=== PATIENT | male | born 1945 | race African-American/Black ===

== ENCOUNTER 2017-01-30 21:01 | Observation (INO) | payer MEDICARE ==
[2017-01-30] MEDS ORDERED: Magnesium Sulfate 2 GM/100 ML BAG ONE (21:53)
[2017-01-30 23:34] LABS: Troponin I 0.049 ng/mL (< 0.028)
[2017-01-31] MEDS ORDERED: Acetaminophen 325 MG TAB PO PRN ×2 (00:54→02:39)
[2017-01-31 01:24] VITALS: BMI 19.3
[2017-01-31 02:10] LABS: Troponin I 0.056 ng/mL (< 0.028)
[2017-01-31] MEDS ORDERED: Calcium Carbonate 500 MG ChewTAB PO PRN (02:39)
[2017-01-31] MEDS ORDERED: Ondansetron ODT 4 MG TAB PO PRN (02:39)
[2017-01-31] MEDS ORDERED: Nitroglycerin 0.4 MG TAB (25 Tab Bottle) PO PRN (02:39)
[2017-01-31] MEDS ORDERED: Ondansetron HCl/PF 4 MG/2 ML Vial IVP PRN (02:39)
[2017-01-31] MEDS ORDERED: hydrALAZINE 20 MG/ML VIAL SLOW IVP PRN (02:42)
--- NOTE | 2017-01-31 03:37 | HP ---
The patient is a transfer from [facility]. CODE STATUS: FULL CODE. SURROGATE DECISION-MAKER: The patient makes his own decisions, has not appointed any decision maker . CHIEF COMPLAINT: Chest discomfort. HISTORY OF PRESENT ILLNESS: The patient is a 71-year-old male who presented to the emergency room w ith above complaints. He was last hospitalized at this facility in August of this year for chest pain . He was evaluated by Cardiology, Dr. Baird. His medications were optimized. He was then [facility] in a stable condition. Please note that the patient currently lives alone. He also has a history of chronic systolic heart failure, status post AICD. He currently takes no medications. The patient presented to [facility] today because of chest discomfort that has been goi ng on for the last week or so. It is substernal, sharp in nature with some nausea and diaphoresis. He also had intermittent palpitations. He denies any aggravating or relieving factor. He also com plains of minimal shortness of breath especially on moderate exertion. He denies recent immobilizat ion, travel. No fever, chills, heartburn, dyspepsia reported. In the Emergency Room in [place], his initial vital signs showed temperature 97.9, respirations 15, pulse of 68, blood pressure 172/91 with O2 saturation of 94% on room air. His initial EKG showed p aced rhythm. His initial troponins were in the indeterminate range. He received aspirin with nitro glycerin in the emergency room. His potassium was 3.4 for which he received 10 mEq of oral potassiu m. PAST MEDICAL HISTORY: 1. Chronic systolic heart failure, ejection fraction 30% to 35% range, secondary to ischemic cardio myopathy. 2. Sick sinus syndrome. 3. Coronary artery disease, status post coronary artery bypass grafting. 4. Hypertension. 5. Hyperlipidemia. 6. History of pulmonary embolism in the past. 7. Medication noncompliance. 8. Ongoing tobacco abuse. 9. Homelessness. PAST SURGICAL HISTORY: 1. AICD placement. 2. Coronary artery bypass grafting. ALLERGIES: No known drug allergy. CURRENT HOME MEDICATIONS: The patient currently takes no medications. SOCIAL HISTORY: He smokes on and off. He denies significant use of alcohol. No drug use. FAMILY HISTORY: Negative for premature coronary artery disease. REVIEW OF SYSTEMS: The following complete review of systems was negative, unless otherwise mentione d in the HPI or below: Constitutional: Weight loss or gain, ability to conduct usual activities. Skin: Rash, itching. Eyes: Double vision, pain. ENT/Mouth: Nose bleeding, neck stiffness, pain, tenderness. Cardiovascular: Palpitations, dyspnea on exertion, orthopnea. Respiratory: Shortness of breath, wheezing, cough, hemoptysis, fever or night sweats. Gastrointestinal: Poor appetite, abdominal pain, heartburn, nausea, vomiting, constipation, or diar jennifer. Genitourinary: Urgency, frequency, dysuria, nocturia. Musculoskeletal: Pain, swelling. Neurologic/Psychiatric: Anxiety, depression. Allergy/Immunologic: Skin rash, bleeding tendency. PHYSICAL EXAMINATION: VITAL SIGNS: As discussed above. GENERAL: A 71-year-old male, in no apparent distress. Chest discomfort has more or less resolved. HEENT: Head is atraumatic, normocephalic. Sclerae are anicteric. Moist mucous membranes. No oral lesion. NECK: Supple, no JVD appreciated. No carotid bruit. LUNGS: Clear to auscultation bilaterally. No wheezing or rales. HEART: S1, S2 present. Regular rate and rhythm, 2/6 systolic murmur over the mitral area AICD note d. No heaves or pulsation. No S3. ABDOMEN: Soft, nontender, bowel sounds present. EXTREMITIES: No edema or calf tenderness. NEUROLOGIC: Grossly nonfocal, moves all four extremities. PSYCHIATRY: Alert, awake, oriented x3. SKIN: Warm and dry. LYMPH NODES: No palpable lymph nodes in the neck. PERIPHERAL VASCULAR: Radial pulses palpable bilaterally. MUSCULOSKELETAL: No joint swelling or tenderness. LABORATORY AND X-RAY FINDINGS: Troponins chronically elevated. Maximum troponin 0.056. BNP 354, p otassium 3.4. Sodium 139. CBC showed WBC 5.9 with hemoglobin 15.4. Plasma alcohol was 179. Chest x-ray by my review as discussed above. EKG by my review showed paced rhythm. IMPRESSION AND PLAN: 1. Chest discomfort, rule out acute coronary syndrome. The patient has a history of ischemic cardi omyopathy. His troponins are chronically elevated in the indeterminate range. The patient is nonco mpliant with any of his medications. We will consult rehabilitation case coordinator for assistance. We will resume h ome medications based on last discharge summary. 2. Chronic systolic heart failure secondary to ischemic cardiomyopathy, status post AICD. We will resume ALMA inhibitor and beta olena from last discharge summary. Please note that patient does no t take any home medications. 3. Ongoing tobacco abuse. The patient was counseled. 4. Chronic alcohol use with alcohol intoxication at this time. The patient was counseled. 5. Hypertension. 6. Dyslipidemia. 7. No reversible ischemia on the Cardiolite stress test last year. 8. Medication noncompliance. 9. Hypokalemia. We will replace. 10. Macrocytosis, probably secondary to chronic alcohol use. Plan of care was discussed with the patient. He stated understanding. DISPOSITION: Probably in 24 hours if stable.
[2017-01-31] MEDS ORDERED: Nitroglycerin 2% Ointment 1 INCH/1 GM Packet TOP SCH (06:00)
[2017-01-31] MEDS ORDERED: Carvedilol 3.125 MG TAB PO SCH (08:00)
[2017-01-31] MEDS ORDERED: Spironolactone 25 MG TAB PO SCH (08:00)
[2017-01-31] MEDS ORDERED: Famotidine 20 MG TAB PO SCH ×2 (09:00)
[2017-01-31] MEDS ORDERED: Clopidogrel Bisulfate 75 MG TAB PO SCH (09:00)
[2017-01-31] MEDS ORDERED: Aspirin 325 MG TAB PO SCH (09:00)
[2017-01-31] MEDS ORDERED: Docusate 100 MG CAP PO SCH (09:00)
[2017-01-31] MEDS ORDERED: Furosemide 20 MG TAB PO SCH (09:00)
[2017-01-31] MEDS ORDERED: Lisinopril 2.5 MG TAB PO SCH (09:00)
[2017-01-31] MEDS ORDERED: Aspirin 81 mg Enteric Coated Tablet PO SCH (09:00)
[2017-01-31] MEDS ORDERED: Digoxin 0.25 MG TAB PO SCH (09:00)
[2017-01-31] MEDS ORDERED: Lorazepam 1 MG TAB PO PRN (10:36)
[2017-01-31 12:27] VITALS: BP 134/67; TEMP 98.3
--- NOTE | 2017-01-31 19:05 | DIS ---
DATE OF ADMISSION: 01/30/2017 DATE OF DISCHARGE: 01/31/2017 CONDITION AT THE TIME OF DISCHARGE: Stable and improved. DISCHARGE DIAGNOSES: 1. Chest pain, atypical, likely angina due to medication noncompliance. 2. Acute alcoholic intoxication. 3. Hypertension. 4. History of chronic systolic congestive heart failure. 5. Coronary artery disease. 6. Tobacco dependence. DISCHARGE DISPOSITION: Home. The patient's family members were consulted and he is going home with one of his cousin who is a sonar subsystem equipment operator. DISCHARGE MEDICATIONS: Medication prescriptions were provided and help was arranged with the help o f case management. Discharge medications as follows: Aspirin 81 mg daily, Coreg 3.125 mg p.o. b.i. d., Plavix 75 mg daily, lisinopril 2.5 mg daily, multivitamin daily, Aldactone 12.5 mg p.o. daily, I mdur 30 mg daily, Pepcid 20 mg p.o. b.i.d., digoxin 0.25 mg daily. CONSULTATIONS: None. PROCEDURES: None. HISTORY OF PRESENTING ILLNESS: Mr. Kiser is a 71-year-old male with known history of chronic systoli c congestive heart failure, status post AICD placement, and coronary artery disease status post CABG as well as hypertension and dyslipidemia, and history of PE in the past who presented to the emerge ncy room with complaints of chest pain. He was evaluated in our facility in August as well. He is es sentially homeless and continues to drink and is not able to take any of his medications either tom use of noncompliance or homelessness or alcohol abuse. Anyways, he presented with a blood pressure of 172/91 with oxygen saturation of 94% on room air. His initial troponins were in the indeterminat e range, which is rather chronic for him. He was given aspirin and nitroglycerin in the ER and was admitted for further evaluation. EKG showed paced rhythm. HOSPITAL COURSE: His chest pain was rather atypical and it did not reoccur. Serial cardiac enzymes were trended and they remained in the indeterminate range. Lipid panel was checked and it was unre markable. His serum alcohol level was 179. His chest pain is most likely angina or related to hype rtension, which was uncontrolled. At this time, he was restarted on all of his medication including aspirin, statin, beta olena, ALMA inhibitor, diuretics, digoxin and Aldactone as well as Plavix. All the prescriptions were provided to him and case management was consulted with medication financi al help. This was provided to the patient. Fortunately, we were able to get hold of family member who is a sonar subsystem equipment operator and the patient is going to stay with the family for now. He was seen and examined on the day of discharge and is hemodynamically stable. PHYSICAL EXAMINATION: Include, VITAL SIGNS: Temperature 98.3, pulse of 60, respirations 20, saturating 97% on room air, blood pres sure 134/67. GENERAL: He is somewhat somnolent, likely due to acute alcoholic intoxication, but in no acute dist ress. Awake, alert, oriented x3. CHEST: Clear to auscultation without any wheezing, rales or rhonchi. Rate and rhythm is regular wi thout any murmur, rubs or gallops. ABDOMEN: Soft, nontender, nondistended. LABORATORY EXAMINATION: Troponin 0.049 and 0.056. At this time, the patient is hemodynamically stable and restarted on all of his home medications. A lcohol and tobacco abuse counseling was provided in detail, but the patient does not seem to underst and the gravity of the situation. He remains high risk for complications with his continued alcohol ism.
[2017-01-31] MEDS ORDERED: Atorvastatin Calcium 40 MG TAB PO SCH (21:00)
== END 2017-01-31 16:44 | disposition home or self-care (01) ==
LOC: ERS 21:01 → 2SW 22:24
PROVIDERS: ADMIT Internal Medicine; ATTEND Internal Medicine
DX: R07.89 Other chest pain (principal); F10.129 Alcohol abuse with intoxication, unspecified; I25.10 Atherosclerotic heart disease of native coronary artery without angina pectoris; F17.200 Nicotine dependence, unspecified, uncomplicated; E78.5 Hyperlipidemia, unspecified; I25.5 Ischemic cardiomyopathy; I11.0 Hypertensive heart disease with heart failure; I50.22 Chronic systolic (congestive) heart failure; I49.5 Sick sinus syndrome; Z59.0 Homelessness; D75.89 Other specified diseases of blood and blood-forming organs; E87.6 Hypokalemia; Z91.14 Patient's other noncompliance with medication regimen; Z95.810 Presence of automatic (implantable) cardiac defibrillator; Z95.1 Presence of aortocoronary bypass graft; Z86.711 Personal history of pulmonary embolism
CPT/HCPCS: 80061; 84484 ×2; 93798; 94760; 96365; 99285; G0378; 36415; J3475

== ENCOUNTER 2017-04-15 19:59 | Inpatient (IN) | payer MEDICARE ==
[2017-04-15 22:00] LABS: Troponin I 0.144 ng/mL (< 0.028)
[2017-04-16 00:32] VITALS: BMI 25.4
[2017-04-16 01:20] LABS: Troponin I 0.149 ng/mL (< 0.028)
[2017-04-16] MEDS ORDERED: Enoxaparin Sodium 40 MG/0.4 ML SYRINGE SC SCH (03:15)
[2017-04-16] MEDS ORDERED: Acetaminophen 325 MG TAB PO PRN (03:15)
[2017-04-16] MEDS ORDERED: HYDROcodone/Acetaminophen 5/325 mg Tablet PO PRN (03:15)
[2017-04-16] MEDS ORDERED: Ondansetron ODT 4 MG TAB PO PRN (03:15)
[2017-04-16 03:57] LABS: CKMB 1.5 ng/mL (0-6.6); Troponin I 0.152 ng/mL (< 0.028)
[2017-04-16] MEDS: Furosemide 40 MG/4 ML VIAL SLOW IVP SCH ×2 (04:01→09:33)
--- NOTE | 2017-04-16 04:25 | HP ---
DATE OF ADMISSION: 04/16/2017 TIME OF SERVICE: 0115 hours. PRIMARY CARE PHYSICIAN: Brad Galeana M.D. PRIMARY MANUFACTURING DIRECTOR: Zack Sales M.D. CHIEF COMPLAINT: Shortness of breath and chest pressure. HISTORY OF PRESENT ILLNESS: Mr. Kiser is a 71-year-old male with history of chronic systolic CHF, last EF of 30%-35%, ischemic cardiomyopathy, sick sinus syndrome, coronary artery disea se, hypertension, hyperlipidemia, prior pulmonary embolus and noncompliance with medical regimen, who presents to the emergency department with one-day of acute onset of chest pressure and several days of increasing shortness of breath. The patient was last here 01/30/2017 to 01/31/2017 and presented with an episode the ER and transferr ed here for chest pain and ruled out. He presented with the episode to ER today with the same similar symptoms. When he was last discharge d, he was restarted all of his medications that he has not been taking and again has not been taking any of his medications. Emergency Department workup was largely unremarkable except for a BNP of 180 0 which was the highest that I have seen recently. Rest of his labs remained normal and he was satti ng 95% on room air. We were subsequently called for admission for his tachycardia, elevated BNP and shortness of breath. Troponins are borderline. The patient was transferred to the floor. I saw him 04/06/2017. He was breathing comfortably and sl eeping. Denied any further chest pressure. No nausea, vomiting, diaphoresis. There are no fevers o r chills. No cough or sputum production. No GI bleeding. He readily admits, he does not take any medications. PAST MEDICAL HISTORY: 1. Chronic systolic congestive heart failure, ejection fraction of 30%-35%. 2. Ischemic cardiomyopathy. 3. Sick sinus syndrome, status post pacemaker/AICD placement. 4. Coronary artery disease. 5. Hypertension. 6. Hyperlipidemia. 7. History of pulmonary embolus. 8. Ongoing tobacco abuse. 9. Medical noncompliance. PAST SURGICAL HISTORY: 1. Coronary artery bypass grafting. 2. AICD implantation. HOME MEDICATIONS: Please note the patient is not taking any of these; 1. Aspirin 81 mg daily. 2. Coreg 3.125 mg p.o. b.i.d. 3. Plavix 75 mg daily. 4. Lisinopril 2.5 mg daily 5. Multivitamin daily. 6. Aldactone 12.5 mg p.o. daily. 7. Imdur 30 mg p.o. daily. 8. Pepcid 20 mg p.o. b.i.d. 9. Digoxin 0.25 mg p.o. daily. ALLERGIES: NKDA. FAMILY HISTORY: The patient does not know of any history of clotting or bleeding disorder. No immun e dysfunction. No premature coronary disease. SOCIAL HISTORY: He drinks regularly. He states that he currently drinks about 5 drinks a day. Does smoke about half a pack of cigarettes per day. No IV drug use. He is grossly noncompliant with his medical treatments. REVIEW OF SYSTEMS: A 10-point review of systems was performed. The patient denied any other finding s except stated above in HPI. PHYSICAL EXAMINATION: VITAL SIGNS: Temperature on arrival to floor 96.2, pulse 94, blood pressure 145/88, respiratory rate 18, sat 95% on room air on arrival to the emergency department, blood pressure 149/99 to our emergen cy department and satting 100% on 2 liters. GENERAL: He is awake. He is alert. He is oriented x3. He is a well-developed, well-nourished Afri can [place] male who is in no distress. He actually looks like he does not care at all that he is h ere and does not do anything he is supposed to be doing. HEENT: Normocephalic and atraumatic. Pupils equal, round, and reactive to light bilaterally, there is no icterus. Mucous membranes are moist. There are no visible lesions or thrush. NECK: Supple. There is no lymphadenopathy, JVD or thyromegaly. LUNGS: Have coarse bibasilar crackles. He has a slightly prolonged expiratory phase, but no wheezes . CARDIOVASCULAR: Normal S1, S2; he is barely tachycardic. There is a faint systolic ejection murmur 2-3/6 best heard at the right sternal border with radiation to the apex of the carotids and there is a faint holosystolic murmur best over the apex. ABDOMEN: Soft, nontender, nondistended. He has no hepatosplenomegaly. He has got good bowel sounds . EXTREMITIES: No cyanosis or clubbing; does have edema from the ankles down. 1+ pitting. SKIN: Otherwise, warm was well-perfused. No rash or lesions. NEUROLOGIC: Cranial nerves II through XII grossly intact. Strength 5/5. Speech pattern is normal. There are no focal deficits. MUSCULOSKELETAL: Normal to inspection. There is no joint inflammations. No deformities and no palp able effusions. LABORATORY DATA: Sodium 138, potassium 4.2, chloride 104, bicarbonate 23, BUN 12, creatinine 0.93. Liver function grossly within normal limits. CBC showed a white count of 6.4, hemoglobin 13.6, hematocrit of 42.7, platelet count was 253,000. Tr oponin I was 0.159, followed by 0.144. BNP was 1854. Chest x-ray showed cardiomegaly and findings consistent with CHF. ASSESSMENT AND PLAN: 1. Acute on chronic systolic congestive heart failure: The patient was placed on IV Lasix, nitro pa dhaval, and diuresed. We will get a 2D echocardiogram as last one was more than 6 months ago. We will get serial cardiac biomarkers to rule out any underlying coronary artery disease as a cause. 2. Ischemic cardiomyopathy, last ejection fraction 30%-35%. Follow up with echocardiogram. 3. Medical noncompliance. Patient has not taken his medications; really so like he has no plans to take them later. We will defer to the daytime team. 4. Coronary artery disease, serial cardiac biomarkers. We will resume his Imdur, Coreg, Plavix and daily baby aspirin. We will continue his low dose lisinopril for cardiac remodeling. 5. Hypertension. Aldactone, Imdur, lisinopril, Coreg. 6. History of sick sinus syndrome on digoxin.
[2017-04-16] MEDS ORDERED: Furosemide 40 MG/4 ML VIAL SLOW IVP SCH (06:00)
[2017-04-16] MEDS ORDERED: Digoxin 0.25 MG TAB PO SCH ×2 (09:00→13:48)
[2017-04-16 09:20] LABS: Hemoglobin 12.7 g/dL (14.0-18.0); Mean Corpuscular HGB CONC 32.8 g/dL (32.0-36.0); Mean Corpuscular Hemoglobin 32.3 pg (27.0-31.0); Mean Corpuscular Volume 98.4 fl (80.0-94.0); Mean Platelet Volume 8.3 fL (7.4-10.4); Platelet Count 219 thou/uL (130-400); RBC Distribution Width 13.3 % (11.5-14.5); Red Blood Cell (RBC) Count 3.93 mill/uL (4.70-6.10); White Blood Cell (WBC) Count 4.9 thou/uL (4.8-10.8)
[2017-04-16] MEDS: Famotidine 20 MG TAB PO SCH ×2 (09:32→20:55)
[2017-04-16] MEDS: Clopidogrel Bisulfate 75 MG TAB PO SCH (09:32)
[2017-04-16] MEDS: Spironolactone 25 MG TAB PO SCH (09:32)
[2017-04-16] MEDS: Lisinopril 2.5 MG TAB PO SCH (09:32)
[2017-04-16] MEDS: Carvedilol 3.125 MG TAB PO SCH ×2 (09:33→17:47)
[2017-04-16 09:37] LABS: Anion Gap 14 mmol/L (10-20); BUN (Urea Nitrogen) 11 mg/dL (8.4-25.7); Calc. Creatinine Clearance 79 mL/min (70-130); Calcium 8.6 mg/dL (7.8-10.44); Carbon Dioxide 23 mmol/L (23-31); Chloride 102 mmol/L (98-107); Estimated GFR-MDRD Greater than 90; Glucose 76 mg/dL (80-115); Potassium 3.4 mmol/L (3.5-5.1); Sodium 136 mmol/L (136-145)
[2017-04-16 09:44] LABS: Troponin I 0.117 ng/mL (< 0.028)
[2017-04-16] MEDS ORDERED: Lorazepam 2 MG/ML VIAL SLOW IVP PRN (11:25)
[2017-04-16 12:34] LABS: CKMB 1.4 ng/mL (0-6.6); Troponin I 0.125 ng/mL (< 0.028)
--- NOTE | 2017-04-16 12:57 | PDOC.EVN ---
Event Note - Event Note Event Note: 71M with h/o alcohol abuse admitted for heart failure. has been commenced on diuretics and tolerating well. Physical examination significant for bibasilar crackles. Has elevated troponin but likely 2/2 demand ischemia. Cardiology, heart failure services consulted.
--- NOTE | 2017-04-16 13:47 | CON-2 ---
DATE OF CONSULTATION: 04/16/2017 REASON FOR CONSULTATION: Chest pain and shortness of breath. ATTENDING: Law Simons M.D. RESIDENT: Elissa Hirsch M.D., PGY-2. HISTORY OF PRESENT ILLNESS: Patient is a 71-year-old -[place] male with past history of heart failure with reduced ejection fraction (last EF of 30 %-35%), ischemic cardiomyopathy, AICD placement, coronary artery disease, status post CABG x3, hypertension, hyperlipidemia, who presents with chest pain and worsening dyspnea. Regarding the patient's chest pain, it is difficult for him to characterize the nature of it. He does state that it is substernal. He is unable to characterize it and give any further information regarding it. Regarding his dyspnea, he states that it has been worsening over the past 2 weeks. He does also report increased lower extremity edema, orthopnea, and paroxysmal nocturnal dyspnea. The patient's machine inker is Dr. Sales. The patient does report medication noncompliance due to an unstable living situation. PAST MEDICAL HISTORY: 1. Heart failure with reduced ejection fraction. 2. Cardiomyopathy. 3. Sick sinus syndrome. 4. Coronary artery disease. 5. Hypertension. 6. Hyperlipidemia. MEDICATIONS: 1. Aspirin 81 mg daily. 2. Coreg 3.125 mg p.o. b.i.d. 3. Plavix 75 mg daily. 4. Lisinopril 2.5 mg daily. 5. Spironolactone 12.5 mg daily. 6. Imdur 30 mg daily. 7. Digoxin 0.25 mg daily. PAST SURGICAL HISTORY: 1. CABG x3. 2. AICD placement. ALLERGIES: No known drug allergies. SOCIAL HISTORY: The patient denies smoking. Per review of patient's chart, patient does have a significant alcohol history. REVIEW OF SYSTEMS: Ten-point review of systems negative aside from what is listed in history of present illness. PHYSICAL EXAMINATION: VITAL SIGNS: Blood pressure 134/79, temperature 97.9 degrees, pulse 72, respirations 17, pulse ox 95% on room air. GENERAL: The patient is alert and oriented, in no apparent distress. HEENT: Extraocular muscles are intact. NECK: Supple, no thyromegaly. CARDIOVASCULAR: Regular rate and rhythm, no murmurs, rubs, or gallops. RESPIRATORY: Lungs are clear to auscultation bilaterally. No rales, wheezes, or rhonchi. ABDOMEN: Soft, nontender to palpation. No distention. No organomegaly. EXTREMITIES: Normal bulk and tone. A little peripheral edema noted. NEUROLOGIC: Cranial nerves II-XII intact grossly. LABORATORY DATA: 1. CBC: Hemoglobin 12.9, hematocrit 38.7, white blood cell count 4.9, platelet count 219. 2. BMP: Sodium 136, potassium 3.4, chloride 102, carbon dioxide 23, BUN 11, creatinine 0.9, glucose 76. 3. Troponin 0.144, 0.149, 0.152, 0.177. 4. BNP 1851.2. IMAGING: Chest x-ray shows cardiomegaly with prominence of the pulmonary vasculature and pulmonary interstitium suggestive of congestive heart failure. EKG shows ischemic changes consistent with prior EKGs. ASSESSMENT AND PLAN: The patient is a 71-year-old male with history of congestive heart failure and medication noncompliance, who presents with shortness of breath and chest pain. 1. Acute exacerbation of heart failure with reduced ejection fraction. Patient notes some improvement in shortness of breath with IV diuresis. Recommend medical management with diuresis, fluid restriction, and low-salt diet. Patient's home medications have all been restarted. Patient is currently stable, as he is not requiring oxygen at this time. Continue to monitor. 2. Chest pain. EKG and labs not consistent with active ischemia. We will treat medically with restarting patient's home medications. Given the patient' s unstable financial situation, compliance on an outpatient basis may continue to be an issue. Recommend that case management be involved for medication assistance. JEFFERY
[2017-04-16] MEDS ORDERED: Digoxin 0.125 MG TAB PO SCH (14:00)
--- NOTE | 2017-04-16 15:26 | CON ---
DATE OF CONSULTATION: 04/16/2017 REASON FOR CONSULTATION: 1. Acute on chronic systolic heart failure. 2. Ischemic cardiomyopathy. Please see Elissa Hirsch's full consultation for details. HISTORY OF PRESENT ILLNESS: Briefly, Mr. Kiser is a pleasant 71-year-old gentleman who recently prese nted with shortness of breath. He has a history of ischemic cardiomyopathy. He has been seen and ev aluated by Dr. Zack Sales in the past. He had an ICD placed. He has not taken any of his medicin es over the last several months. History is somewhat vague. He has a history of significant noncomp liance in the past. Per the notes, he also is homeless. PHYSICAL EXAMINATION: VITAL SIGNS: Blood pressure 124/84, pulse 76, temperature 98.2. LUNGS: Clear to auscultation. CARDIAC: Regular rate and rhythm. ABDOMEN: Soft, nontender, and nondistended. EXTREMITIES: No edema. IMPRESSION: 1. Acute on chronic systolic heart failure. 2. Ischemic cardiomyopathy. RECOMMENDATIONS: Mr. Kiser's situation is certainly complex. Social history seems to be at the foref ront. He has not taken his medicines likely due to financial constraints. Making this worse is his homeless status. At this point, I would recommend continued medical therapy. He started on aspirin, atorvastatin, and carvedilol in addition to digoxin. We will decrease digoxin 0.125 q.a.m. We woul d not recommend anymore aggressive approach given his situation. His EKG does suggest LVH versus isc hemia, when compared to previous EKG in 2017 appears unchanged. Plan and discharge from a CV standpo int tomorrow.
[2017-04-16 15:37] LABS: Troponin I 0.104 ng/mL (< 0.028)
[2017-04-16] MEDS: Furosemide 20 MG/2 ML VIAL SLOW IVP SCH (20:55)
[2017-04-16] MEDS ORDERED: Atorvastatin Calcium 40 MG TAB PO SCH (21:00)
[2017-04-17 05:10] LABS: #Basophils 0.1 thou/uL (0.0-0.2); #Eosinphils 0.4 thou/uL (0.0-0.7); #Lymphocytes 1.9 thou/uL (1.20-3.40); #Monocytes 0.6 thou/uL (0.11-0.59); #Neutrophils 1.5 thou/uL (1.40-6.50); %Basophils 1.2 % (0.0-1.0); %Eosinophils 8.6 % (0.0-10.0); %Lymphocytes 42.8 % (21.0-51.0); %Monocytes 14.1 % (0.0-10.0); %Neutrophils 33.3 % (42.0-75.0); Hemoglobin 12.6 g/dL (14.0-18.0); Mean Corpuscular HGB CONC 33.4 g/dL (32.0-36.0); Mean Corpuscular Hemoglobin 32.8 pg (27.0-31.0); Mean Corpuscular Volume 98.2 fl (80.0-94.0); Mean Platelet Volume 7.7 fL (7.4-10.4); Platelet Count 227 thou/uL (130-400); RBC Distribution Width 13.2 % (11.5-14.5); Red Blood Cell (RBC) Count 3.86 mill/uL (4.70-6.10); White Blood Cell (WBC) Count 4.4 thou/uL (4.8-10.8)
[2017-04-17 05:23] LABS: Anion Gap 11 mmol/L (10-20); BUN (Urea Nitrogen) 14 mg/dL (8.4-25.7); Calc. Creatinine Clearance 60 mL/min (70-130); Calcium 8.9 mg/dL (7.8-10.44); Carbon Dioxide 29 mmol/L (23-31); Chloride 101 mmol/L (98-107); Estimated GFR-MDRD 74; Glucose 95 mg/dL (80-115); Magnesium 1.7 mg/dL (1.6-2.6); Potassium 3.6 mmol/L (3.5-5.1); Sodium 137 mmol/L (136-145)
[2017-04-17] MEDS ORDERED: Enoxaparin Sodium 40 MG/0.4 ML SYRINGE SC SCH (09:00)
[2017-04-17] MEDS ORDERED: Digoxin 0.125 MG TAB PO SCH (09:00)
[2017-04-17] MEDS: Lisinopril 2.5 MG TAB PO SCH (09:10)
[2017-04-17] MEDS: Spironolactone 25 MG TAB PO SCH (09:13)
[2017-04-17] MEDS: Famotidine 20 MG TAB PO SCH (09:14)
[2017-04-17] MEDS: Carvedilol 3.125 MG TAB PO SCH (09:14)
[2017-04-17] MEDS: Clopidogrel Bisulfate 75 MG TAB PO SCH (09:14)
[2017-04-17] MEDS: Furosemide 20 MG/2 ML VIAL SLOW IVP SCH (09:17)
--- NOTE | 2017-04-17 11:04 | PRG ---
DATE OF SERVICE: 04/17/2017 SUBJECTIVE: Mr. Kiser has no current complaints. No chest pain or pressure or shortness of breath. No other associated ameliorating or exacerbating factors present. OBJECTIVE: VITAL SIGNS: Blood pressure 130/77, pulse 61 and temperature is 98.3. LUNGS: Clear to auscultation. HEART: Regular rate and rhythm. ABDOMEN: Soft, nontender and nondistended. EXTREMITIES: No edema. IMPRESSION: 1. Acute on chronic systolic heart failure. 2. Status post implantable cardioverter defibrillator. RECOMMENDATIONS: From a CV standpoint, Mr. Kiser appears stable for discharge. We will continue ator vastatin, carvedilol, Plavix and digoxin. We will also continue isosorbide. Unfortunately, complian ce is an ongoing issue. I did state he should follow up with his primary crime investigator special agent, Dr. Derrek garza.
[2017-04-17 12:21] VITALS: BP 126/72; TEMP 98.1
--- NOTE | 2017-04-17 22:15 | DIS ---
DATE OF ADMISSION: 04/15/2017 DATE OF DISCHARGE: 04/17/2017 CONDITION AT TIME OF DISCHARGE: Stable and improved. DISCHARGE DIAGNOSES: Acute on chronic systolic congestive heart failure SECONDARY DIAGNOSES: Ischemic cardiomyopathy with ejection fraction of 30% to 35%, medication noncom pliance, coronary artery disease, hypertension, history of sick sinus syndrome, on digoxin. CONSULTATIONS: Cardiology. HISTORY OF PRESENT ILLNESS: A 71-year-old male with history of systolic CHF, [facility] several days of increasing shortness of breath with associated chest pressure. He p resented here 01/30/2017 through 01/31/2017, presented with the same episode at the ER and was treate d for chest pain, rule out. Emergency room workup was unremarkable except for a BNP of 1800. Rest o f labs remain normal and he was saturating at 95% on room air. We were subsequently called for admis claudia for his tachycardia, elevated BNP and shortness of breath. Troponins were borderline. He was t ransferred to the floor and where he was found breathing comfortable and sleeping. He denied further chest pressure. There was no nausea, vomiting or diaphoresis. No fevers or chills. No cough or sp utum production. HOSPITAL COURSE: He received adequate diuresis and was continued on his home medications. He was ev entually transitioned to p.o. furosemide. He was reviewed by Cardiology and only change made was to reduce his digoxin dose to 0.125 mg p.o. q.a.m. The patient remained stable while on admission and w as discharged without incident. PROCEDURES: Chest x-ray: Cardiomegaly and findings suggestive of CHF. EKG no signs of acute ischem ia. PHYSICAL EXAMINATION ON DISCHARGE: The patient examination on day of discharge. VITAL SIGNS: Stable and he was not in any acute distress. GENERAL: The patient awake and alert, no acute distress. HEENT: Normocephalic and atraumatic. PERRLA, anicteric. Mucous membranes moist. NECK: Supple, no JVD. LUNGS: Vesicular breath sounds bilaterally. No wheezes or crackles. CARDIOVASCULAR: S1, S2, normally positive systolic ejection murmur right sternal border. ABDOMEN: Soft, nontender, nondistended. Bowel sounds positive. No hepatomegaly or splenomegaly. EXTREMITIES: Moving all extremities spontaneously. No lower extremity edema. SKIN: Warm and well perfused. No rashes or lesions. NEUROLOGIC: Awake, alert and well oriented. No focal deficits. PSYCHIATRIC: Normal mood and affect. LABORATORY DATA: Labs at discharge, CBC and CMP likely unremarkable. Troponin trended down before d ischarge. DISCHARGE DISPOSITION: Home. DISCHARGE MEDICATIONS: Aspirin 81 mg daily, atorvastatin 40 mg p.o. at bedtime, carvedilol 3.125 mg p.o. b.i.d., clopidogrel 75 mg p.o. q.a.m., digoxin 0.125 mg p.o. daily, famotidine 20 mg p.o. b.i.d. , furosemide 20 mg p.o. daily, isosorbide mononitrate 30 mg p.o. daily, lisinopril 2.5 mg p.o. daily, multivitamin with minerals 1 tablet p.o. daily, spironolactone 12.5 mg p.o. q.a.m. DIET: Heart healthy diet. ACTIVITY: Restrictions to resume as tolerated. PLAN OF CARE: The patient instructed to follow up with his primary care physician within 1 week of d ischarge. He was also informed to take his medications as prescribed. Total time of discharge including chart review 60 minutes.
--- NOTE | 2017-04-25 14:16 | EKG ---
Test Reason : Blood Pressure : / mmHG Vent. Rate : 091 BPM Atrial Rate : 091 BPM P-R Int : 156 ms QRS Dur : 106 ms QT Int : 414 ms P-R-T Axes : 071 020 184 degrees QTc Int : 509 ms Normal sinus rhythm Possible Left atrial enlargement Left ventricular hypertrophy Prolonged QT Abnormal ECG Confirmed by MAGNUS BURCIAGA, VICENTE ([id number]), communications editor MELITA BURK ([id number]) on 04/25/2017 2:15:59 PM Referred By: MAGNUS Confirmed By:VICENTE AGUDELO MD
== END 2017-04-17 15:30 | disposition home or self-care (01) | DRG 292 ==
LOC: ERS 19:59 → 2NO 23:50
PROVIDERS: ADMIT Internal Medicine Infectious Disease; ATTEND Internal Medicine Infectious Disease
DX: I11.0 Hypertensive heart disease with heart failure (principal); I24.8 Other forms of acute ischemic heart disease; I25.5 Ischemic cardiomyopathy; Z79.01 Long term (current) use of anticoagulants; Z95.1 Presence of aortocoronary bypass graft; I25.10 Atherosclerotic heart disease of native coronary artery without angina pectoris; E78.5 Hyperlipidemia, unspecified; Z86.711 Personal history of pulmonary embolism; Z95.810 Presence of automatic (implantable) cardiac defibrillator; F17.210 Nicotine dependence, cigarettes, uncomplicated; Z79.82 Long term (current) use of aspirin; I50.23 Acute on chronic systolic (congestive) heart failure; F10.10 Alcohol abuse, uncomplicated; Z59.0 Homelessness; Z91.120 Patient's intentional underdosing of medication regimen due to financial hardship
CPT/HCPCS: 36415; 80048; 82553; 83735; 84484; 85025; 85027; 93005; 93306; 93798; 94760; J1650; J1940

== ENCOUNTER 2017-06-07 11:55 | Inpatient (IN) | payer MEDICARE ==
[2017-06-07 12:38] LABS: #Basophils 0.1 thou/uL (0.0-0.2); #Eosinphils 0.1 thou/uL (0.0-0.7); #Lymphocytes 1.8 thou/uL (1.20-3.40); #Monocytes 0.6 thou/uL (0.11-0.59); #Neutrophils 2.3 thou/uL (1.40-6.50); %Basophils 1.4 % (0.0-1.0); %Eosinophils 1.6 % (0.0-10.0); %Lymphocytes 37.2 % (21.0-51.0); %Monocytes 11.7 % (0.0-10.0); %Neutrophils 48.1 % (42.0-75.0); Hemoglobin 13.5 g/dL (14.0-18.0); Mean Corpuscular HGB CONC 33.3 g/dL (32.0-36.0); Mean Corpuscular Hemoglobin 32.2 pg (27.0-31.0); Mean Corpuscular Volume 96.7 fl (80.0-94.0); Mean Platelet Volume 7.9 fL (7.4-10.4); Platelet Count 187 thou/uL (130-400); RBC Distribution Width 13.8 % (11.5-14.5); Red Blood Cell (RBC) Count 4.19 mill/uL (4.70-6.10); White Blood Cell (WBC) Count 4.7 thou/uL (4.8-10.8)
[2017-06-07 12:51] LABS: ALT (SGPT) 21 U/L (8-55); AST (SGOT) 27 U/L (5-34); Albumin 3.7 g/dL (3.4-4.8); Alkaline Phosphatase 94 U/L (40-150); Anion Gap 13 mmol/L (10-20); BUN (Urea Nitrogen) 17 mg/dL (8.4-25.7); Bilirubin, Total 1.5 mg/dL (0.2-1.2); CK (CPK) 72 U/L (30-200); Calc. Creatinine Clearance 0 mL/min (70-130); Calcium 9.1 mg/dL (7.8-10.44); Carbon Dioxide 22 mmol/L (23-31); Chloride 106 mmol/L (98-107); Estimated GFR-MDRD Greater than 90; Globulin 3.2 g/dL (2.4-3.5); Glucose 107 mg/dL (80-115); Potassium 4.3 mmol/L (3.5-5.1); Protein, Total 6.9 g/dL (5.8-8.1); Sodium 137 mmol/L (136-145)
[2017-06-07 12:56] LABS: CKMB 2.9 ng/mL (0-6.6); Troponin I 0.106 ng/mL (< 0.028)
--- NOTE | 2017-06-07 14:46 | RAD ---
AP CHEST: History: Dyspnea. Date: 06-07-17 Comparison: 04-15-17 FINDINGS: Sternotomy wires are seen. There is a dual-lead intracardiac defibrillator. Cardiomegaly is seen. Pul monary vascular congestion is seen. There is some mild blunting of the left costophrenic angle compatible with a tiny left sided pleural effusion. The right lung is well aerated. IMPRESSION: Cardiomegaly and pulmonary vascular congestion. POS: [facility]
[2017-06-07] MEDS ORDERED: Acetaminophen 325 MG TAB PO PRN (15:10)
[2017-06-07] MEDS ORDERED: Acetaminophen 650 MG Suppository PR PRN (15:10)
[2017-06-07] MEDS ORDERED: Bisacodyl 5 MG TAB PO PRN (15:10)
[2017-06-07] MEDS ORDERED: Calcium Carbonate 500 MG ChewTAB PO PRN (15:10)
--- NOTE | 2017-06-07 15:44 | HP ---
PRIMARY CARE PHYSICIAN: Brad Galeana M.D. CHIEF COMPLAINT: Shortness of breath. HISTORY OF PRESENT ILLNESS: Mr. Kiser is a pleasant 71-year-old gentleman who was seen at [facility] on 06/07/2017. He is a poor historian. Collateral history was obtained from medical record as well as from emergenc y room physician. He reports that approximately 2 weeks ago, he stopped taking his medications. He cites [email or web address] for this. He reports that over the last 2 weeks, he has had progressively worsening shortness o f breath. He reports orthopnea. He also reports paroxysmal nocturnal dyspnea. He also reports shor tness of breath with exertion. He also reportedly told the emergency room physician that he had ches t discomfort, but when I asked him about it, he said that he may have had tightness in the retrostern al region, but he is unable to describe it further and he no longer has chest discomfort. He denies any cough, fevers or chills. He reports bilateral leg swelling, progressively worsening over the last few days. REVIEW OF SYSTEMS: The following complete review of systems was negative, unless otherwise mentioned in the HPI or below: Constitutional: Weight loss or gain, ability to conduct usual activities. Skin: Rash, itching. Eyes: Double vision, pain. ENT/Mouth: Nose bleeding, neck stiffness, pain, tenderness. Cardiovascular: Palpitations, dyspnea on exertion, orthopnea. Respiratory: Shortness of breath, wheezing, cough, hemoptysis, fever or night sweats. Gastrointestinal: Poor appetite, abdominal pain, heartburn, nausea, vomiting, constipation, or diarr hea. Genitourinary: Urgency, frequency, dysuria, nocturia. Musculoskeletal: Pain, swelling. Neurologic/Psychiatric: Anxiety, depression. Allergy/Immunologic: Skin rash, bleeding tendency. PAST MEDICAL HISTORY: Significant for, 1. Chronic systolic congestive heart failure, ejection fraction of 30%-35%, last admission for heart failure exacerbation in 03/2017. 2. Ischemic cardiomyopathy. 3. Sick sinus syndrome, status post pacemaker/AICD placement. 4. Coronary artery disease. 5. Hypertension. 6. Dyslipidemia. 7. History of pulmonary embolism. 8. Tobacco use. 9. Medical noncompliance. PAST SURGICAL HISTORY: Significant for coronary artery bypass graft and AICD implantation. ALLERGIES: No known drug allergies. CURRENT MEDICATIONS: Patient is not taking any medications for the last 2 weeks. Prior to that, he was on aspirin 81 mg daily, Coreg 3.125 mg 2 times a day, Plavix 75 mg daily, lisinopril 2.5 mg daily , multivitamins 1 tablet daily, spironolactone 12.5 mg daily, Imdur 30 mg daily, Pepcid 20 mg 2 times a day, and digoxin 0.25 mg daily. FAMILY HISTORY: He denies any family history of coronary artery disease. SOCIAL HISTORY: He drinks about 3 alcoholic drinks every other day. He chews tobacco. He denies re creational drug use. CODE STATUS: I discussed his code status. He is FULL CODE. PHYSICAL EXAMINATION: GENERAL: On examination, Mr. Kiser is awake and alert, not in acute distress. VITAL SIGNS: Blood pressure is 130/90, pulse is 87, he is breathing at rate of 20 and saturating 97% on room air. He is afebrile. EYES: He has scleral icterus. No conjunctival pallor. ENT: Moist mucosal membranes, no oropharyngeal erythema or exudates. NECK: He has jugular venous distention. Neck is supple, nontender, trachea is midline. No thyromeg kilo. RESPIRATORY: Accessory muscles of breathing are mildly active. Chest wall movements are symmetric b ilaterally. Lung examination reveals few bibasilar crackles. CARDIOVASCULAR: S1 and S2 are heard, regular. LUNGS: Peripheral pulses palpable. No carotid bruit, no pericardial rub. ABDOMEN: Soft and nontender. Bowel sounds are heard, no hepatomegaly, no splenomegaly. MUSCULOSKELETAL: Power is 5/5 in all 4 extremities. Normal range of movement at all major extremity joints. SKIN: No rashes. He has bilateral lower extremity edema. NEUROLOGIC: Cranial nerves II-XII intact. Deep tendon reflexes 2+. LYMPHATIC: No cervical lymphadenopathy. PSYCHIATRIC: Normal mood, normal affect, patient is oriented to person and place, not to time. IMAGING DATA AND LABORATORY DATA: Mr. Kiser's labs and investigations were reviewed. I reviewed his electrocardiogram, which shows normal sinus rhythm, no ST depressions. He does have T-wave inversion s in the lateral leads, which were also seen on previous electrocardiograms. I also reviewed his malina st x-ray, which shows pulmonary vascular congestion. He has decreased white count of 4,700, decrease d hemoglobin of 13.5, normal platelet count of 187,000, normal sodium, normal potassium, normal creat inine, elevated total bilirubin of 1.5, indeterminate troponin I of 0.106, last known troponin 0.073 on 04/21/2017, normal AST, normal ALT, normal alkaline phosphatase, normal CK and an elevated BNP of 1910. ASSESSMENT AND PLAN: Mr. Kiser is a pleasant 71-year-old gentleman who was seen at [facility] on 06/07/2017. His problem list includes: 1. Shortness of breath: Most likely etiology is congestive heart failure exacerbation. 2. Congestive heart failure exacerbation: Mr. Kiser will be admitted to the hospital and treated wit h intravenous diuretics. The remainder of his home medications will be resumed. Cardiology Service has already been consulted by emergency room physician. 3. Elevated troponin: Troponin I is in indeterminate range, most likely secondary to congestive hea rt failure exacerbation. The patient denies any chest pain at this time. We will trend troponins an d further action depending on the direction of the trending. 4. Tobacco abuse: Patient has been counseled regarding tobacco cessation. He denied nicotine repla cement therapy. 5. Medication noncompliance. Patient has been counseled regarding medication noncompliance. We tk l need case management consult to look into any funding options for medication. 6. Hypertension: Monitor vital signs, titrate antihypertensives as needed. 7. Dyslipidemia: Resume statin. Many thanks for allowing me to participate in your patient's care. Please feel free to contact me wi th any questions or concerns. LEVEL OF RISK: High. LEVEL OF COMPLEXITY: High.
[2017-06-07 15:55] LABS: Troponin I 0.095 ng/mL (< 0.028)
[2017-06-07 16:03] VITALS: BMI 26.9
[2017-06-07] MEDS: Carvedilol 3.125 MG TAB PO SCH (16:18)
[2017-06-07] MEDS: Atorvastatin Calcium 40 MG TAB PO SCH (20:30)
[2017-06-07] MEDS: Famotidine 20 MG TAB PO SCH (20:30)
[2017-06-08 05:41] LABS: #Basophils 0.1 thou/uL (0.0-0.2); #Eosinphils 0.2 thou/uL (0.0-0.7); #Lymphocytes 1.9 thou/uL (1.20-3.40); #Monocytes 0.6 thou/uL (0.11-0.59); #Neutrophils 1.8 thou/uL (1.40-6.50); %Basophils 1.6 % (0.0-1.0); %Eosinophils 3.9 % (0.0-10.0); %Lymphocytes 42.1 % (21.0-51.0); %Monocytes 13.3 % (0.0-10.0); %Neutrophils 39.1 % (42.0-75.0); Hemoglobin 13.2 g/dL (14.0-18.0); Mean Corpuscular HGB CONC 32.9 g/dL (32.0-36.0); Mean Corpuscular Hemoglobin 32.9 pg (27.0-31.0); Mean Corpuscular Volume 99.9 fl (80.0-94.0); Mean Platelet Volume 8.5 fL (7.4-10.4); Platelet Count 172 thou/uL (130-400); RBC Distribution Width 13.9 % (11.5-14.5); Red Blood Cell (RBC) Count 4.02 mill/uL (4.70-6.10); White Blood Cell (WBC) Count 4.5 thou/uL (4.8-10.8)
[2017-06-08] MEDS: Furosemide 40 MG/4 ML VIAL SLOW IVP SCH ×2 (05:41→14:39)
[2017-06-08 05:48] LABS: Anion Gap 16 mmol/L (10-20); BUN (Urea Nitrogen) 20 mg/dL (8.4-25.7); Calc. Creatinine Clearance 76 mL/min (70-130); Calcium 8.8 mg/dL (7.8-10.44); Carbon Dioxide 17 mmol/L (23-31); Chloride 108 mmol/L (98-107); Estimated GFR-MDRD Greater than 90; Glucose 93 mg/dL (80-115); Potassium 4.5 mmol/L (3.5-5.1); Sodium 136 mmol/L (136-145)
[2017-06-08] MEDS: Digoxin 0.125 MG TAB PO SCH (10:14)
[2017-06-08] MEDS: Spironolactone 25 MG TAB PO SCH (10:15)
[2017-06-08] MEDS: Clopidogrel Bisulfate 75 MG TAB PO SCH (10:15)
[2017-06-08] MEDS: Multivitamin W/ Minerals 1 TAB PO SCH (10:15)
[2017-06-08] MEDS: Lisinopril 2.5 MG TAB PO SCH (10:16)
[2017-06-08] MEDS: Enoxaparin Sodium 40 MG/0.4 ML SYRINGE SC SCH (10:16)
[2017-06-08] MEDS: Famotidine 20 MG TAB PO SCH ×2 (10:16→22:03)
[2017-06-08] MEDS: Carvedilol 3.125 MG TAB PO SCH ×2 (10:16→17:54)
--- NOTE | 2017-06-08 12:22 | PDOC.PN ---
- Subjective Encounter Start Date: 06/08/17 Encounter Start Time: 10:00 Pt seen for followup re: CHF exacerbation. Sleepy but arousable. Reports dyspnea is better. Denies chest pain. - Objective Resuscitation Status: Resuscitation Status FULL:Full Resuscitation MAR Reviewed: Yes Vital Signs & Weight: Vital Signs (12 hours) Temp Pulse Resp BP BP BP Pulse Ox 06/08/17 10:16 80 143/92 H 06/08/17 10:14 80 06/08/17 08:00 98.5 F 80 21 H 95 06/08/17 07:54 98.5 F 80 20 143/92 H 95 06/08/17 04:00 76 18 120/81 100 Weight Weight 166 lb 12.8 oz I&O: 06/07/17 06/08/17 06/09/17 06:59 06:59 06:59 Output Total 750 Balance -750 Result Diagrams: 06/08/17 04:55 06/08/17 04:55 EKG Reviewed by me: Yes (Tele: NSR) Phys Exam - Physical Examination Constitutional: NAD HEENT: PERRLA, moist MMs, sclera anicteric, oral pharynx no lesions Neck: supple Respiratory: no wheezing, no rhonchi Bibasal crackles Cardiovascular: RRR, no rub Gastrointestinal: soft, non-tender, no distention, positive bowel sounds Musculoskeletal: edema present Neurological: moves all 4 limbs Lymphatic: no nodes Psychiatric: normal affect Deviation from normal: oriented to person and place, not to time Dx/Plan (1) Acute on chronic systolic (congestive) heart failure Code(s): I50.23 - ACUTE ON CHRONIC SYSTOLIC (CONGESTIVE) HEART FAILURE Status : Acute Comment: Continue diuretics, await cardiology consult (2) Elevated troponin I level Code(s): R74.8 - ABNORMAL LEVELS OF OTHER SERUM ENZYMES Status: Acute Comment: Likely due to CHF exacerbation. Pt denies chest pain (3) Coronary artery disease Code(s): I25.10 - ATHSCL HEART DISEASE OF [place] CORONARY ARTERY W/O ANG PCTRS Status: Chronic (4) Dyslipidemia Code(s): E78.5 - HYPERLIPIDEMIA, UNSPECIFIED Status: Chronic Comment: started on statin (5) Hypertension Code(s): I10 - ESSENTIAL (PRIMARY) HYPERTENSION Status: Chronic Comment: Monitor vital signs, titrate antihypertensives as needed (6) Noncompliance with medication regimen Code(s): Z91.14 - PATIENT'S OTHER NONCOMPLIANCE WITH MEDICATION REGIMEN Status : Chronic Comment: Pt counseled - Plan * . Review of Systems - Review of Systems Constitutional: negative: fever, chills, sweats, weakness, malaise Respiratory: SOB with Excertion. negative: Cough, Dry, Shortness of Breath, Hemoptysis, Pleuritic Pain, Sputum, Wheezing Cardiovascular: orthopnea, paroxysmal nocturnal dyspnea. negative: chest pain, palpitations, edema, light headedness Gastrointestinal: negative: Nausea, Vomiting, Abdominal Pain, Diarrhea, Constipation, Melena, Hematochezia Genitourinary: negative: Dysuria, Frequency, Incontinence, Hematuria, Retention - Medications/Allergies Allergies/Adverse Reactions: Allergies Allergy/AdvReac Type Severity Reaction Status Date / Time No Known Allergies Allergy Verified 04/16/17 01:56 Medications: Current Medications Acetaminophen (Tylenol) 650 mg PO Q4H PRN PRN Reason: Headache/Fever or Pain Acetaminophen (Tylenol) 650 mg [place] Q4H PRN PRN Reason: Headache/Fever or Pain Aspirin (Aspirin Chewable) 81 mg PO DAILY [facility] Last Admin: 06/08/17 10:15 Dose: 81 mg Atorvastatin Calcium (Lipitor) 40 mg PO HS [facility] Last Admin: 06/07/17 20:30 Dose: 40 mg Bisacodyl (Dulcolax) 10 mg PO DAILYPRN PRN PRN Reason: Constipation Calcium Carbonate (Tums) 1,000 mg PO Q4H PRN PRN Reason: Heartburn or Indigestion Carvedilol (Coreg) 3.125 mg PO BID-[facility] Last Admin: 06/08/17 10:16 Dose: 3.125 mg Clopidogrel Bisulfate (Plavix) 75 mg PO QAM [facility] Last Admin: 06/08/17 10:15 Dose: 75 mg Digoxin (Lanoxin) 0.125 mg PO DAILY [facility] Last Admin: 06/08/17 10:14 Dose: 0.125 mg Enoxaparin Sodium (Lovenox) 40 mg SC 0900 [facility] Last Admin: 06/08/17 10:16 Dose: 40 mg Famotidine (Pepcid) 20 mg PO BID [facility] Last Admin: 06/08/17 10:16 Dose: 20 mg Furosemide (Lasix) 40 mg SLOW IVP 0600,1400 [facility] Last Admin: 06/08/17 05:41 Dose: 40 mg Iron/Minerals/Multivitamins (Theragran M) 1 tab PO DAILY [facility] Last Admin: 06/08/17 10:15 Dose: 1 tab Isosorbide Mononitrate (Imdur Er) 30 mg PO DAILY [facility] Last Admin: 06/08/17 10:15 Dose: 30 mg Lisinopril (Zestril) 2.5 mg PO DAILY [facility] Last Admin: 06/08/17 10:16 Dose: 2.5 mg Spironolactone (Aldactone) 12.5 mg PO QAM-WM [facility] Last Admin: 06/08/17 10:15 Dose: 12.5 mg
[2017-06-08] MEDS ORDERED: Sodium Chloride 0.9% 10 ML ONE (14:26)
--- NOTE | 2017-06-08 15:57 | CON ---
DATE OF CONSULTATION: 06/08/2017 REASON FOR CONSULTATION: Acute on chronic systolic heart failure. HISTORY OF PRESENT ILLNESS: Mr. Kiser is an unfortunate 71-year-old gentleman who previously was seen by Dr. Valente Hinson. Mr. Kiser has a history of a cardiomyopathy of unknown etiology. Unfortunately, Mr Grace Kiser has been noncompliant with medical therapy. He is also homeless per his account. He represen el with shortness of breath. He had undergone a noninvasive stress study performed in the past with an LVEF 34% and no evidence of ischemia. PAST MEDICAL HISTORY: Cardiomyopathy and sick sinus syndrome, status post ICD, CABG x3, hypertension and hyperlipidemia. HOME MEDICATIONS: Include aspirin, Coreg, Plavix, lisinopril, spironolactone, Imdur and digoxin, alt sandor none taken recently. PAST SURGICAL HISTORY: As above including AICD placement. CURRENT MEDICATIONS: None. REVIEW OF SYSTEMS: Ten point review of systems were reviewed and as above, otherwise negative. PHYSICAL EXAMINATION: VITAL SIGNS: Blood pressure 150/99, pulse 80, temperature 97.9. GENERAL: Patient is a pleasant male who is in no acute distress. The patient appears his stated age. NEUROLOGIC: The patient is alert and oriented times 3 with no focal neurologic deficits. HEENT: Sclerae without icterus. Mouth has moist mucous membranes with normal pallor. NECK: No JVD. Carotid upstroke brisk. No bruits bilaterally. LUNGS: Crackles noted bilaterally. BACK: No scoliosis or kyphosis. CARDIAC: Regular rate and rhythm with normal S1 and S2. No S3 or S4 noted. No significant rubs, murmurs, thrills, or gallops noted throughout the precordium. PMI is not displaced. There is no parasternal heave. ABDOMEN: Soft, nontender, nondistended. No peritoneal signs present. No hepatosplenomegaly. No abnormal striae. EXTREMITIES: 2+ femoral and 2+ dorsalis pedis pulses. No cyanosis, clubbing, or edema. SKIN: No gross abnormalities. PERTINENT LABS: Hemoglobin 13.2, creatinine 0.97, peak troponin 0.106. IMPRESSION: 1. Acute on chronic systolic heart failure. 2. Noncompliance. 3. Coronary artery disease. 4. Status post bypass surgery. 5. Status post implantable cardioverter defibrillator. RECOMMENDATIONS: Unfortunately, Mr. Kiser has limited resources. He ran out of his medications, whic h likely the source of his recent decompensation. At this point, we would recommend diuresis and alida cing him back on his outpatient medications. Certainly seems to be a difficult situation. He has no history of chest pain. No evidence of ischemia noted on recent stress study performed in the last 2 years.
[2017-06-08] MEDS: Atorvastatin Calcium 40 MG TAB PO SCH (22:02)
[2017-06-09] MEDS: Furosemide 40 MG/4 ML VIAL SLOW IVP SCH ×2 (05:38→14:47)
[2017-06-09 05:55] LABS: Anion Gap 13 mmol/L (10-20); BUN (Urea Nitrogen) 25 mg/dL (8.4-25.7); Calc. Creatinine Clearance 65 mL/min (70-130); Calcium 8.7 mg/dL (7.8-10.44); Carbon Dioxide 24 mmol/L (23-31); Chloride 103 mmol/L (98-107); Estimated GFR-MDRD 81; Glucose 99 mg/dL (80-115); Potassium 3.8 mmol/L (3.5-5.1); Sodium 136 mmol/L (136-145)
[2017-06-09 06:01] LABS: Eosinophils 1 % (0-10); Hemoglobin 12.4 g/dL (14.0-18.0); Lymphocytes 52 % (21-51); MDiff Complete? YES; Mean Corpuscular HGB CONC 33.1 g/dL (32.0-36.0); Mean Corpuscular Volume 96.6 fl (80.0-94.0); Mean Platelet Volume 7.9 fL (7.4-10.4); Monocytes 14 % (0-10); Neutrophil 33 % (42-75); Platelet Count 176 thou/uL (130-400); RBC Distribution Width 13.6 % (11.5-14.5); Red Blood Cell (RBC) Count 3.86 mill/uL (4.70-6.10); White Blood Cell (WBC) Count 4.2 thou/uL (4.8-10.8)
[2017-06-09] MEDS ORDERED: Sodium Chloride 0.9% 10 ML ONE ×2 (08:16→14:07)
[2017-06-09] MEDS: Digoxin 0.125 MG TAB PO SCH (09:29)
[2017-06-09] MEDS: Spironolactone 25 MG TAB PO SCH (09:29)
[2017-06-09] MEDS: Multivitamin W/ Minerals 1 TAB PO SCH (09:29)
[2017-06-09] MEDS: Lisinopril 2.5 MG TAB PO SCH (09:30)
[2017-06-09] MEDS: Famotidine 20 MG TAB PO SCH ×2 (09:30→21:03)
[2017-06-09] MEDS: Clopidogrel Bisulfate 75 MG TAB PO SCH (09:31)
[2017-06-09] MEDS: Carvedilol 3.125 MG TAB PO SCH ×2 (09:33→17:14)
[2017-06-09] MEDS: Enoxaparin Sodium 40 MG/0.4 ML SYRINGE SC SCH (09:34)
--- NOTE | 2017-06-09 18:20 | PDOC.PN ---
- Subjective Encounter Start Date: 06/09/17 Encounter Start Time: 08:40 Pt seen for followup re: CHF exacerbation. Sleepy but arousable, denies any complaints. - Objective Resuscitation Status: Resuscitation Status FULL:Full Resuscitation MAR Reviewed: Yes Vital Signs & Weight: Vital Signs (12 hours) Temp Pulse Resp BP BP BP Pulse Ox 06/09/17 12:00 97.0 F L 75 18 138/87 06/09/17 09:30 68 134/78 06/09/17 09:29 68 06/09/17 08:00 97.0 F L 75 18 134/78 96 Weight Weight 160 lb 11.2 oz I&O: 06/08/17 06/09/17 06/10/17 06:59 06:59 06:59 Intake Total 700 Output Total 2700 Balance -1999 Result Diagrams: 06/09/17 05:01 06/09/17 05:01 EKG Reviewed by me: Yes (Tele: NSR) Phys Exam - Physical Examination Constitutional: NAD HEENT: PERRLA, moist MMs, sclera anicteric, oral pharynx no lesions Neck: no nodes, supple, full ROM JCD+ Respiratory: no wheezing, no rhonchi Bibasal crackles Cardiovascular: RRR, no rub Musculoskeletal: edema present Neurological: moves all 4 limbs Psychiatric: normal affect Dx/Plan (1) Acute on chronic systolic (congestive) heart failure Code(s): I50.23 - ACUTE ON CHRONIC SYSTOLIC (CONGESTIVE) HEART FAILURE Status : Acute Comment: Continue diuretics, good oxygen saturation on room air (2) Elevated troponin I level Code(s): R74.8 - ABNORMAL LEVELS OF OTHER SERUM ENZYMES Status: Acute Comment: Pt denies chest pain (3) Coronary artery disease Code(s): I25.10 - ATHSCL HEART DISEASE OF [place] CORONARY ARTERY W/O ANG PCTRS Status: Chronic Comment: stable (4) Dyslipidemia Code(s): E78.5 - HYPERLIPIDEMIA, UNSPECIFIED Status: Chronic Comment: on statin (5) Hypertension Code(s): I10 - ESSENTIAL (PRIMARY) HYPERTENSION Status: Chronic Comment: titrate antihypertensives as needed (6) Noncompliance with medication regimen Code(s): Z91.14 - PATIENT'S OTHER NONCOMPLIANCE WITH MEDICATION REGIMEN Status : Chronic Comment: Pt counseled - Plan * . Review of Systems - Review of Systems Constitutional: negative: fever, chills, sweats, weakness, malaise Respiratory: negative: Cough, Dry, Shortness of Breath, Hemoptysis, SOB with Excertion, Pleuritic Pain, Sputum, Wheezing Cardiovascular: negative: chest pain, palpitations, orthopnea, paroxysmal nocturnal dyspnea, edema, light headedness Gastrointestinal: negative: Nausea, Vomiting, Abdominal Pain, Diarrhea, Constipation, Melena, Hematochezia Genitourinary: negative: Dysuria, Frequency, Incontinence, Hematuria, Retention - Medications/Allergies Allergies/Adverse Reactions: Allergies Allergy/AdvReac Type Severity Reaction Status Date / Time No Known Allergies Allergy Verified 04/16/17 01:56 Medications: Current Medications Acetaminophen (Tylenol) 650 mg PO Q4H PRN PRN Reason: Headache/Fever or Pain Acetaminophen (Tylenol) 650 mg [place] Q4H PRN PRN Reason: Headache/Fever or Pain Aspirin (Aspirin Chewable) 81 mg PO DAILY [facility] Last Admin: 06/09/17 09:31 Dose: 81 mg Atorvastatin Calcium (Lipitor) 40 mg PO HS [facility] Last Admin: 06/08/17 22:02 Dose: 40 mg Bisacodyl (Dulcolax) 10 mg PO DAILYPRN PRN PRN Reason: Constipation Calcium Carbonate (Tums) 1,000 mg PO Q4H PRN PRN Reason: Heartburn or Indigestion Carvedilol (Coreg) 3.125 mg PO BID-[facility] Last Admin: 06/09/17 17:14 Dose: 3.125 mg Clopidogrel Bisulfate (Plavix) 75 mg PO QAM [facility] Last Admin: 06/09/17 09:31 Dose: 75 mg Digoxin (Lanoxin) 0.125 mg PO DAILY [facility] Last Admin: 06/09/17 09:29 Dose: 0.125 mg Enoxaparin Sodium (Lovenox) 40 mg SC 0900 [facility] Last Admin: 06/09/17 09:34 Dose: 40 mg Famotidine (Pepcid) 20 mg PO BID [facility] Last Admin: 06/09/17 09:30 Dose: 20 mg Furosemide (Lasix) 40 mg SLOW IVP 0600,1400 [facility] Last Admin: 06/09/17 14:47 Dose: 40 mg Iron/Minerals/Multivitamins (Theragran M) 1 tab PO DAILY [facility] Last Admin: 06/09/17 09:29 Dose: 1 tab Isosorbide Mononitrate (Imdur Er) 30 mg PO DAILY [facility] Last Admin: 06/09/17 09:29 Dose: 30 mg Lisinopril (Zestril) 2.5 mg PO DAILY [facility] Last Admin: 06/09/17 09:30 Dose: 2.5 mg Spironolactone (Aldactone) 12.5 mg PO QA-[facility] Last Admin: 06/09/17 09:29 Dose: 12.5 mg
--- NOTE | 2017-06-09 18:32 | PRG ---
DATE OF SERVICE: 06/09/2017 SUBJECTIVE: Mr. Kiser states he is not feeling well. He is nonspecific. He does not appear to be in significant distress or short of breath. PHYSICAL EXAMINATION: CURRENT VITAL SIGNS: Blood pressure 130/87, pulse 85, temperature 97. I's and O's -2000. LUNGS: Clear to auscultation. CARDIAC: Regular rate and rhythm. ABDOMEN: Soft, nontender, nondistended. EXTREMITIES: No edema. PERTINENT LABORATORY DATA: Hemoglobin 12.4, and creatinine 1.09. IMPRESSION: 1. Acute on chronic systolic heart failure. 2. Noncompliance. 3. Coronary artery disease. 4. Status bypass surgery. RECOMMENDATIONS: Certainly a difficult case. Compliance seems to be an issue. I once again discuss ed the importance of medical therapy. He states he has no resources. We will ask social work to ass ist, but likely the only temporary. Once he is off his medications, he will likely bounce [facility]. Continue aspirin, atorvastatin, addition of Coreg and digoxin. He is on p.o. Lasix IV b.i.d.
[2017-06-09] MEDS: Atorvastatin Calcium 40 MG TAB PO SCH (21:03)
[2017-06-10 05:15] LABS: Anion Gap 10 mmol/L (10-20); BUN (Urea Nitrogen) 22 mg/dL (8.4-25.7); Calc. Creatinine Clearance 60 mL/min (70-130); Calcium 8.9 mg/dL (7.8-10.44); Carbon Dioxide 28 mmol/L (23-31); Chloride 102 mmol/L (98-107); Estimated GFR-MDRD 73; Glucose 91 mg/dL (80-115); Potassium 3.8 mmol/L (3.5-5.1); Sodium 136 mmol/L (136-145)
[2017-06-10] MEDS: Furosemide 40 MG/4 ML VIAL SLOW IVP SCH (05:47)
[2017-06-10 05:48] LABS: Band 1 % (5-11); Eosinophils 5 % (0-10); Hemoglobin 12.5 g/dL (14.0-18.0); Lymphocytes 52 % (21-51); MDiff Complete? YES; Mean Corpuscular HGB CONC 32.8 g/dL (32.0-36.0); Mean Corpuscular Hemoglobin 31.6 pg (27.0-31.0); Mean Corpuscular Volume 96.1 fl (80.0-94.0); Mean Platelet Volume 7.8 fL (7.4-10.4); Monocytes 6 % (0-10); Neutrophil 36 % (42-75); Platelet Count 197 thou/uL (130-400); RBC Distribution Width 13.6 % (11.5-14.5); Red Blood Cell (RBC) Count 3.95 mill/uL (4.70-6.10); White Blood Cell (WBC) Count 4.5 thou/uL (4.8-10.8)
[2017-06-10] MEDS: Carvedilol 3.125 MG TAB PO SCH (08:48)
[2017-06-10] MEDS: Spironolactone 25 MG TAB PO SCH (08:48)
[2017-06-10] MEDS: Digoxin 0.125 MG TAB PO SCH (08:49)
[2017-06-10] MEDS: Enoxaparin Sodium 40 MG/0.4 ML SYRINGE SC SCH (08:49)
[2017-06-10] MEDS: Clopidogrel Bisulfate 75 MG TAB PO SCH (08:49)
[2017-06-10] MEDS: Multivitamin W/ Minerals 1 TAB PO SCH (08:50)
[2017-06-10] MEDS: Lisinopril 2.5 MG TAB PO SCH (08:50)
[2017-06-10] MEDS: Famotidine 20 MG TAB PO SCH (08:50)
[2017-06-10] MEDS: Furosemide 40 MG TAB PO SCH ×2 (08:53→14:56)
[2017-06-10 09:05] VITALS: TEMP 98
--- NOTE | 2017-06-10 15:21 | DIS ---
DATE OF ADMISSION: 06/07/2017 DATE OF DISCHARGE: 06/10/2017 PRIMARY CARE PROVIDER: Brad Galeana M.D. DISCHARGE DIAGNOSES: 1. Acute exacerbation of chronic systolic congestive heart failure secondary to . 2. Medication noncompliance. CONDITION OF PATIENT ON THE DAY OF DISCHARGE: Stable. I assessed Mr. Kiser on the day of discharge. He denies any chest pain or shortness of breath. Vital signs are stable. S1 and S2 are heard, regu lar. Lungs are clear to auscultation bilaterally. DISCHARGE MEDICATIONS: Aspirin 81 mg daily, Lipitor 40 mg at bedtime, Coreg 3.125 mg 2 times a day, Plavix 75 mg daily, digoxin 0.125 mg daily, Pepcid 20 mg 2 times a day, furosemide 40 mg daily, Imdur 30 mg daily, lisinopril 2.5 mg daily, multivitamins 1 tablet daily, spironolactone 12.5 mg daily. CONSULTATIONS DURING THIS HOSPITALIZATION: Cardiology, Dr. Simons. HOSPITAL COURSE: Mr. Kiser is a pleasant 71-year-old gentleman who was admitted to [facility] on 06/07/2017 for acute exacerbation of chronic systolic congestive heart failure sec ondary to noncompliance with medications. He was seen by Cardiology Service. He was treated with intravenous diuretics. He improved clinicall y, and is being discharged home in a stable condition. Arrangements are being made to secure financi al help for his medications upon discharge. On the day of discharge, he has a white count of 4500, hemoglobin 12.5, platelet count 197,000 and a normal Chem-7. Many thanks for allowing me to participate in your patient's care. Please feel free to contact me wi th any questions or concerns. DISCHARGE DESTINATION: Home. TOTAL AMOUNT OF TIME SPENT COORDINATING THIS DISCHARGE: Thirty three minutes.
[2017-06-10 16:22] VITALS: BP 131/94
== END 2017-06-10 16:50 | disposition home or self-care (01) | DRG 293 ==
LOC: ERS 11:55 → 2NO 14:00
PROVIDERS: ADMIT Internal Medicine; ATTEND Internal Medicine
DX: I11.0 Hypertensive heart disease with heart failure (principal); I25.5 Ischemic cardiomyopathy; Z95.1 Presence of aortocoronary bypass graft; I25.10 Atherosclerotic heart disease of native coronary artery without angina pectoris; E78.5 Hyperlipidemia, unspecified; I50.23 Acute on chronic systolic (congestive) heart failure; Z95.810 Presence of automatic (implantable) cardiac defibrillator; F17.210 Nicotine dependence, cigarettes, uncomplicated; Z91.14 Patient's other noncompliance with medication regimen
CPT/HCPCS: 36415; 71045; 80048; 80053; 82553; 83880; 84484; 85025; 87804; 93005; A4216; J1650; J1940

== ENCOUNTER 2017-07-09 23:25 | Inpatient (IN) | payer MEDICARE ==
[2017-07-10] MEDS ORDERED: Enoxaparin Sodium 80 MG/0.8 ML SYRINGE ONE (00:39)
[2017-07-10] MEDS ORDERED: Ondansetron HCl/PF 4 MG/2 ML Vial IVP PRN ×2 (02:14→03:31)
[2017-07-10] MEDS ORDERED: Acetaminophen 325 MG TAB PO PRN ×2 (02:14→03:31)
[2017-07-10] MEDS ORDERED: Ondansetron ODT 4 MG TAB SL PRN (02:14)
[2017-07-10] MEDS ORDERED: Prevnar 13-Val Conj/PF 0.5 ML SYRINGE IM ONE (03:15)
[2017-07-10] MEDS ORDERED: Nitroglycerin 0.4 MG TAB (25 Tab Bottle) PO PRN (03:29)
[2017-07-10] MEDS ORDERED: Calcium Carbonate 500 MG ChewTAB PO PRN (03:31)
[2017-07-10] MEDS ORDERED: Senokot 8.6 MG TAB PO PRN (03:31)
[2017-07-10] MEDS ORDERED: Ondansetron ODT 4 MG TAB PO PRN (03:31)
[2017-07-10 03:45] LABS: Critical Call Chem Troponin I RESULT DECREASING; Troponin I 1.521 ng/mL (< 0.028)
--- NOTE | 2017-07-10 04:16 | HP ---
DATE OF ADMISSION: 07/09/2017 The patient was seen in the emergency room on 07/09/2017. CHIEF COMPLAINT: Shortness of breath. HISTORY OF PRESENT ILLNESS: The patient is a 72-year-old male with chronic systolic heart failure, e jection fraction 30% to 35% range, coronary artery disease, status post CABG, sick sinus syndrome, hy pertension, hyperlipidemia, and pulmonary embolism in the past, presented to [facility] wi th shortness of breath that has been ongoing for last 3 to 4 days. The shortness of breath was worse on lying down. He also has bilateral lower extremity swelling that has been progressively getting w orse. He also had intermittent episodes of waking up in the middle of the night short of breath. He denies any chest pain, palpitations, lightheadedness, dizziness or syncope. He has on and off nonpr oductive cough. No fever or chills reported. In the emergency room at [facility], his initial vital signs showed temperature 96.6, respiration 18, pul se rate of 93, blood pressure of 153/96 with O2 saturation 97% on room air. His BNP was 1789 with tr oponin of 1.5. Chest x-ray showed pulmonary vascular congestion. He was transferred to this facilit y after 80 mg IV Lasix, aspirin, and 1 inch nitropatch. PAST MEDICAL HISTORY: 1. Chronic systolic heart failure, ejection fraction 30% to 35% range secondary to ischemic cardiomy opathy. 2. Sick sinus syndrome, status post pacemaker, AICD. 3. Coronary artery disease, status post coronary artery bypass graft. 4. Hypertension. 5. Hyperlipidemia. 6. History of pulmonary embolism in the past. 7. Tobacco dependence. 8. Medication noncompliance. PAST SURGICAL HISTORY: 1. Coronary artery bypass grafting. 2. AICD placement. ALLERGIES: No known drug allergies. CURRENT HOME MEDICATIONS: The patient has not been taking any medications over the last week or so. SOCIAL HISTORY: He chews tobacco on a daily basis. He also smokes on and off. No significant use o f alcohol. Denies any drug use. FAMILY HISTORY: Negative for premature coronary artery disease. REVIEW OF SYSTEMS: The following complete review of systems was negative, unless otherwise mentioned in the HPI or below: Constitutional: Weight loss or gain, ability to conduct usual activities. Sk in: Rash, itching. Eyes: Double vision, pain. ENT/Mouth: Nose bleeding, neck stiffness, pain, te nderness. Cardiovascular: Palpitations, dyspnea on exertion, orthopnea. Respiratory: Shortness of breath, wheezing, cough, hemoptysis, fever or night sweats. Gastrointestinal: Poor appetite, abdom inal pain, heartburn, nausea, vomiting, constipation, or diarrhea. Genitourinary: Urgency, frequenc y, dysuria, nocturia. Musculoskeletal: Pain, swelling. Neurologic/Psychiatric: Anxiety, depressio n. Allergy/Immunologic: Skin rash, bleeding tendency. PHYSICAL EXAMINATION: VITAL SIGNS: As discussed above. GENERAL: A 72-year-old male in mild respiratory distress, able to complete short phrases. HEENT: Head atraumatic, normocephalic. Sclerae are anicteric. Moist mucous membrane. No oral lesi on. NECK: Supple. JVD appears to be elevated. No carotid bruit. LUNGS: Showed bibasilar crackles. There was accessory muscle use. Scattered rhonchi and wheezing n oted. HEART: S1, S2 present. Regular rate and rhythm. Healed midline scar from previous CABG. No heaves or pulsation. ABDOMEN: Soft, nontender, bowel sounds present. EXTREMITIES: 1-2+ edema in bilateral lower extremities. No calf tenderness. SKIN: Warm and dry. LYMPH NODES: No palpable lymph nodes in the neck. PERIPHERAL VASCULAR: Radial pulses palpable bilaterally. MUSCULOSKELETAL: No joint swelling or tenderness. LABORATORY DATA AND X-RAY FINDINGS: CBC showed WBC 5.2 with hemoglobin 14.4, hematocrit 46.1, and pl atelet 167. Chemistry showed sodium 140, potassium 4.5, chloride 107, bicarbonate 19, BUN 20, creati nine 1.01 with glucose of 83. Plasma alcohol was less than 10. Chest x-ray by my review as discusse d above. The patient underwent bilateral lower extremity Doppler in the emergency room later on that was consistent with bilateral DVT. CT angiogram of the chest done later on showed pulmonary embolis m, mainly in the left lower lobe. EKG by my review showed sinus rhythm with nonspecific ST-T wave ch anges in the lateral leads. IMPRESSION: 1. Bilateral lower extremity deep venous thrombosis with pulmonary embolism. 2. Chronic systolic heart failure (the patient has chronically elevated BNP). 3. Elevated troponins, probably secondary to pulmonary embolism. 4. Chronic kidney disease stage 2. 5. Medication noncompliance. 6. Tobacco dependence. 7. Ischemic cardiomyopathy. 8. Sick sinus syndrome, status post pacemaker/automatic implantable cardioverter-defibrillator place ment. 9. Coronary artery disease, status post coronary artery bypass graft. 10. Hypertension. 11. Hyperlipidemia. PLAN: The patient will be monitored in the telemetry unit. We will continue Lovenox 1 mg/kg. We wi ll consult Pulmonary, Dr. Rodriguez. We will resume diuretics. The patient is currently on room air. He has chronically elevated BNP. The patient was extensively counseled to be compliant with his med ications. Tobacco cessation was emphasized. We will continue low dose aspirin. Plan of care was discussed with the patient in detail, he stated understanding.
[2017-07-10] MEDS: Furosemide 20 MG TAB PO SCH ×2 (06:28→15:19)
[2017-07-10 07:18] LABS: Anion Gap 17 mmol/L (10-20); BUN (Urea Nitrogen) 22 mg/dL (8.4-25.7); Calc. Creatinine Clearance 66 mL/min (70-130); Calcium 9.1 mg/dL (7.8-10.44); Carbon Dioxide 22 mmol/L (23-31); Chloride 104 mmol/L (98-107); Estimated GFR-MDRD 83; Glucose 115 mg/dL (83-110); Sodium 139 mmol/L (136-145)
--- NOTE | 2017-07-10 08:34 | ULT ---
PRELIMINARY REPORT/[facility]/EMERGENTY AFTER-HOURS PROCEDURE Addendum created by Jeremy León MD on 07/10/2017 1:39 AM Central Time ([place]) Findings discu ssed with JOSEMANUEL BURCIAGA at time of interpretation. Initial Report created on 07/10/2017 1:23 AM Central Time ([place]) EXAM: US Duplex Bilateral Lower Extremity Veins EXAM DATE/TIME: Exam ordered 07/10/2017 12:22 AM CLINICAL HISTORY: 72 years old, male; Pain and signs and symptoms; Edema, localized; Lower extremity, bilateral; Leg, u pper and leg, lower; Patient HX: Pain/edema ble TECHNIQUE: Real-time duplex ultrasound scan of the bilateral lower extremity veins integrating B-mode two dimens ional vascular structure, Doppler spectral analysis, color flow Doppler imaging and compression. COMPARISON: No relevant studies available. FINDINGS: Right deep veins: Partially occlusive thrombosis of the distal right popliteal vein through the dista l posterior tibial vein. Right superficial veins: Unremarkable. No thrombus in the visualized right great saphenous vein. Left deep veins: Partially occlusive thrombosis of the distal left common femoral vein through the pr oximal popliteal vein. Left superficial veins: Unremarkable. No thrombus in the visualized left great saphenous vein. Soft tissues: No acute findings. No popliteal cyst. IMPRESSION: 1. Partially occlusive thrombosis of the distal right popliteal vein through the distal posterior tib ial vein. 2. Partially occlusive thrombosis of the distal left common femoral vein through the proximal poplite al vein. Thank you for allowing us to participate in the care of your patient. Dictated and Authenticated by: Jeremy León MD 07/10/2017 1:23 AM Central Time ([place]) FINAL REPORT BILATERAL VENOUS DOPPLER: DATE: 07/10/17. COMPARISON: None. HISTORY: Edema, swelling, pain, assess for DVT. FINDINGS: The study is performed with color flow and spectral analysis of the bilateral lower extremity venous structures. Right common femoral vein, greater saphenous vein, profunda femoral vein, and femoral vein appear unr emarkable. There is partially occlusive DVT within the right distal popliteal vein extending into the region of the distal posterior tibial vein. On the left, there is partially occlusive DVT within the distal common femoral vein extending into th e femoral vein and proximal popliteal vein. IMPRESSION: Deep venous thrombosis of bilateral lower extremities, left greater than right, as described above. POS: ALPHONSO
--- NOTE | 2017-07-10 08:39 | CT ---
PRELIMINARY REPORT/[facility]/EMERGENTY AFTER-HOURS PROCEDURE Addendum created by Jeremy León MD on 07/10/2017 1:37 AM Central Time ([place]) Findings discu ssed with Lennox BURCIAGA at time of interpretation. Initial Report created on 07/10/2017 1:31 AM Central Time ([place] & [place]) CT Angiography Chest With Intravenous Contrast EXAM DATE/TIME: Exam ordered 07/10/2017 1:09 AM CLINICAL HISTORY: 72 years old, male; Signs and symptoms; Dyspnea and shortness of breath; Prior surgery; Patient HX: E r 8; M72 presents to ed as transfer from another facility for chf exacerbation and nstemi. Ems report s SOB and HX of chf. Pt reports chest pain yesterday and reports he has not taken his medication x2 days. History of coronary artery bypass graft surgery TECHNIQUE: Axial computed tomographic angiography images of the chest with intravenous contrast using pulmonary embolism protocol. MIP reconstructed images were created and reviewed. COMPARISON: No relevant prior studies available. FINDINGS: Pulmonary arteries: Acute segmental/subsegmental left lower lobe PE. There may be a small amount of a cute right lower lobe segmental PE as well (versus flow artifact). Aorta: No acute findings. No thoracic aortic aneurysm. Lungs: Trace smooth interlobular septal thickening at the lung apices raises the possibility of minim al hydrostatic interstitial pulmonary edema. No mass. Pleural space: Small bilateral pleural effusions. No pneumothorax. Heart: Cardiomegaly. No right heart strain. No significant pericardial effusion. Mediastinum: Esophagus is unremarkable. Bones/joints: No acute fracture. No dislocation. Soft tissues: Unremarkable. Lymph nodes: Unremarkable. No enlarged lymph nodes. Tubes, lines and devices: Cardiac device present. IMPRESSION: 1. Acute PE. No right heart strain. 2. Trace smooth interlobular septal thickening at the lung apices raises the possibility of minimal h ydrostatic interstitial pulmonary edema. 3. Small bilateral pleural effusions. Thank you for allowing us to participate in the care of your patient. Dictated and Authenticated by: Jeremy León MD 07/10/2017 1:31 AM Central Time ([place]) FINAL REPORT CT ARTERIOGRAM CHEST WITH IV CONTRAST AND 3D MIP IMAGING: DATE: 07/10/17. TIME: Performed on an emergency basis at 0111 hours. HISTORY: Chest pain. Dyspnea. COMPARISON: 09/25/15. FINDINGS: Findings agree with the preliminary report from [facility]. Incompletely obstructive left low er lobe pulmonary embolus is confirmed. Possible smaller embolus right lower lobe. Small bilateral pleural effusions. Atherosclerosis. POS: GABBY
[2017-07-10] MEDS ORDERED: Enoxaparin Sodium 80 MG/0.8 ML SYRINGE SC SCH (09:00)
[2017-07-10] MEDS: Carvedilol 3.125 MG TAB PO SCH ×2 (09:10→21:09)
[2017-07-10] MEDS: Famotidine 20 MG TAB PO SCH ×2 (09:10→21:02)
[2017-07-10] MEDS: Lisinopril 2.5 MG TAB PO SCH (09:10)
[2017-07-10] MEDS: Docusate 100 MG CAP PO SCH ×2 (09:10→21:02)
--- NOTE | 2017-07-10 10:55 | CON ---
DATE OF CONSULTATION: 07/10/2017 CONSULTING PHYSICIAN: Dr. High. REASON FOR CONSULTATION: Pulmonary embolism. HISTORY OF PRESENT ILLNESS: This is a 72-year-old male, who apparently presented to the hospital last night with shortness of breath. He is an extremely poor historian and frankly does not want to talk this morning. Most of what I have gathered in terms of information is from reading the patient's history and the chart. He has had pulmonary emboli in the past according to the medical records. The patient does not remember any of that. He has not been taking medication at home for his chronic medical conditions, which include systolic heart failure and coronary artery disease. PAST MEDICAL HISTORY: 1. Chronic systolic heart failure with EF 30%. 2. Sick sinus syndrome. 3. Coronary artery disease. 4. Hypertension. 5. Hyperlipidemia. 6. Pulmonary embolism. 7. Coronary bypass grafting surgery. 8. AICD placement. 9. Pacemaker placement. ALLERGIES: None. MEDICATIONS PRIOR TO ADMISSION: Apparently not been taking anything. SOCIAL HISTORY: Smokes a pack a day. Occasionally chews tobacco. FAMILY MEDICAL HISTORY: Unremarkable. REVIEW OF SYSTEMS: Not obtainable as the patient does not want to cooperate. PHYSICAL EXAMINATION: VITAL SIGNS: Temperature 97.8, pulse 83, blood pressure 119/79, and O2 sat 94% on room air. GENERAL: He is awake, alert, and in no distress. HEENT: Unremarkable. NECK: Without adenopathy or JVD. LUNGS: Clear without wheezing or rhonchi. CARDIAC: S1 and S2, regular. ABDOMEN: Soft, nontender. EXTREMITIES: No edema. LABORATORY DATA: Sodium 139, potassium 4, chloride 104, CO2 of 22, BUN 22, creatinine 1.0, glucose 115. White blood cell count 5.2, hematocrit 46, platelet count 167. I personally review the CT pulmonary angiogram, a small left lower lobe clot. He also has a Doppler of the legs, which showed bilateral DVT. ASSESSMENT: 1. Deep vein thrombosis/pulmonary embolism. 2. History of coronary artery disease and congestive heart failure. RECOMMENDATIONS: If it is true that this is his second pulmonary embolism, then I would recommend lifelong anticoagulation for the patient. Unfortunately , he is a very poor candidate for anticoagulation given his medical noncompliance. A filter, we will do nothing to treat the DVT, but may end up need to be considered since I am not sure he can be trusted to take anticoagulant medication. If the decision to proceed with anticoagulation is made and then I would recommend Eliquis or Xarelto. He can switch to those medications at any time. 70 minutes time spent on consultation. Of that time, >50% was spent with the patient and/or on the patients unit MTDD
--- NOTE | 2017-07-10 12:24 | PDOC.PN ---
- Subjective Encounter Start Date: 07/10/17 Encounter Start Time: 07:45 -: old records requested/rev Patient seen and examined. No new complaints. No overnight events - Objective Resuscitation Status: Resuscitation Status FULL:Full Resuscitation MAR Reviewed: Yes Vital Signs & Weight: Vital Signs (12 hours) Temp Pulse Resp BP BP Pulse Ox 07/10/17 09:10 83 119/79 07/10/17 07:10 97.8 F 83 18 119/79 94 L 07/10/17 02:41 97.4 F L 88 20 99 Result Diagrams: 07/10/17 03:02 Radiology Reviewed by me: Yes (CTA, US leg) EKG Reviewed by me: Yes (nsr) Phys Exam - Physical Examination Constitutional: NAD HEENT: PERRLA, moist MMs, sclera anicteric Neck: no JVD, supple Respiratory: no wheezing, no rales, no rhonchi Cardiovascular: RRR, no significant murmur, no rub Gastrointestinal: soft, non-tender, no distention, positive bowel sounds Musculoskeletal: no edema, pulses present Neurological: non-focal, normal sensation Lymphatic: no nodes Psychiatric: normal affect Skin: no rash, normal turgor Dx/Plan (1) Acute on chronic systolic (congestive) heart failure Code(s): I50.23 - ACUTE ON CHRONIC SYSTOLIC (CONGESTIVE) HEART FAILURE Status : Acute Comment: (2) DVT, bilateral lower limbs Code(s): I82.403 - ACUTE EMBOLISM AND THOMBOS UNSP DEEP VEINS OF LOW EXTRM, BI Status: Acute Qualifiers: Affected thrombotic vein of extremity: popliteal Chronicity: acute Qualified Code(s): I82.433 - Acute embolism and thrombosis of popliteal vein, bilateral (3) Demand ischemia of myocardium Code(s): I24.8 - OTHER FORMS OF ACUTE ISCHEMIC HEART DISEASE Status: Acute (4) Pulmonary embolism Code(s): I26.99 - OTHER PULMONARY EMBOLISM WITHOUT ACUTE COR PULMONALE Status : Acute Qualifiers: Chronicity: acute (5) Alcohol abuse Code(s): F10.10 - ALCOHOL ABUSE, UNCOMPLICATED Status: Chronic (6) Coronary artery disease Code(s): I25.10 - ATHSCL HEART DISEASE OF TELLER CORONARY ARTERY W/O ANG PCTRS Status: Chronic Comment: (7) Dyslipidemia Code(s): E78.5 - HYPERLIPIDEMIA, UNSPECIFIED Status: Chronic Comment: (8) H/O sick sinus syndrome Code(s): Z86.79 - PERSONAL HISTORY OF OTHER DISEASES OF THE CIRCULATORY SYSTEM Status: Chronic (9) Hypertension Code(s): I10 - ESSENTIAL (PRIMARY) HYPERTENSION Status: Chronic Comment: (10) Noncompliance with medication regimen Code(s): Z91.14 - PATIENT'S OTHER NONCOMPLIANCE WITH MEDICATION REGIMEN Status : Chronic Comment: (11) Tobacco abuse Code(s): Z72.0 - TOBACCO USE Status: Chronic - Plan cont current plan of care, plan discussed w/ family * agree with pulmonary recommendation, will need life long chronic anticoagulation but his compliance is main issue * given his bilateral DVT, even though he will need lifelong anticoagulation, IVC filter is also good option to prevent his sudden compromise, will consult CT surgeon for IVC filter * continue lasix * echo pending. * counselled for compliance with treatment and smoking cessation * medication reviewed as below * symptomatic treatment Review of Systems - Review of Systems Constitutional: negative: fever, chills, sweats, weakness, malaise, other Eyes: negative: Pain, Vision Change, Conjunctivae Inflammation, Eyelid Inflammation, Redness, Other ENT: negative: Ear Pain, Ear Discharge, Nose Pain, Nose Discharge, Nose Congestion, Mouth Pain, Mouth Swelling, Throat Pain, Throat Swelling, Other Respiratory: Cough, Shortness of Breath, SOB with Excertion. negative: Dry, Hemoptysis, Pleuritic Pain, Sputum, Wheezing Cardiovascular: negative: chest pain, palpitations, orthopnea, paroxysmal nocturnal dyspnea, edema, light headedness, other Gastrointestinal: negative: Nausea, Vomiting, Abdominal Pain, Diarrhea, Constipation, Melena, Hematochezia, Other Genitourinary: negative: Dysuria, Frequency, Incontinence, Hematuria, Retention , Other Musculoskeletal: negative: Neck Pain, Shoulder Pain, Arm Pain, Back Pain, Hand Pain, Leg Pain, Foot Pain, Other Skin: negative: Rash, Lesions, Isaiah, Bruising, Other - Medications/Allergies Allergies/Adverse Reactions: Allergies Allergy/AdvReac Type Severity Reaction Status Date / Time No Known Allergies Allergy Verified 04/16/17 01:56 Medications: Current Medications Acetaminophen (Tylenol) 650 mg PO Q4H PRN PRN Reason: Headache/Fever or Pain Apixaban (Eliquis) 10 mg PO BID PIA Stop: 07/17/17 09:01 Apixaban (Eliquis) 5 mg PO BID [facility] Calcium Carbonate (Tums) 1,000 mg PO Q4H PRN PRN Reason: Heartburn or Indigestion Carvedilol (Coreg) 3.125 mg PO BID [facility] Last Admin: 07/10/17 09:10 Dose: 3.125 mg Docusate Sodium (Colace) 100 mg PO BID [facility] Last Admin: 07/10/17 09:10 Dose: 100 mg Famotidine (Pepcid) 20 mg PO BID [facility] Last Admin: 07/10/17 09:10 Dose: 20 mg Furosemide (Lasix) 40 mg PO 0600,1300 [facility] Last Admin: 07/10/17 06:28 Dose: 40 mg Lisinopril (Zestril) 2.5 mg PO DAILY [facility] Last Admin: 07/10/17 09:10 Dose: 2.5 mg Nitroglycerin (Nitrostat) 0.4 mg PO Q5MIN PRN PRN Reason: Chest Pain Ondansetron HCl (Zofran Odt) 4 mg PO Q6H PRN PRN Reason: Nausea/Vomiting Ondansetron HCl (Zofran) 4 mg IVP Q6H PRN PRN Reason: Nausea/Vomiting Senna (Senokot) 2 tab PO HSPRN PRN PRN Reason: Constipation Sodium Chloride (Flush - Normal Saline) 10 ml IVF PRN PRN PRN Reason: Saline Flush
--- NOTE | 2017-07-10 15:01 | CON ---
DATE OF CONSULTATION: 07/10/2017 REQUESTING PHYSICIAN: Dr. Joshua Jimenez with the hospitalist service. CHIEF COMPLAINT: Shortness of breath. HISTORY OF PRESENT ILLNESS: The patient is a 72-year-old man who generously be described as a poor h istorian. He apparently presented to the emergency room in [facility] with complaints of 3-4 days of shortness of breath that was worse when lying down. He also had some lower extremities edema karen t have been getting worse and he has had some episodes of paroxysmal nocturnal dyspnea. By report, h is chest x-ray there in [facility] showed pulmonary vascular congestion and his BNP was almost 180 0. He was given Lasix and transferred here. Lower extremity Dopplers to evaluate for the possibilit y of a DVT showed thrombi in both lower extremities and a CT scan of the chest showed a filling defec t what appears to represent a lower lobe artery on the left side. PAST MEDICAL HISTORY: Significant for coronary artery disease with chronic systolic heart failure wi th an EF in the 30%-35% range. PAST SURGICAL HISTORY: He has undergone previous bypass surgery, pacemaker and AICD implantation, an d by report has previous pulmonary emboli. MEDICATIONS: The patient is not taking any of his home medications and apparently has notorious hist ory for being medically noncompliant. ALLERGIES: He denies any medical allergies. SOCIAL HISTORY: He chews tobacco frequently, occasionally smokes. REVIEW OF SYSTEMS: As above. PHYSICAL EXAMINATION: GENERAL: He is a thin man, in no distress, who is reluctantly participating in the interview. VITAL SIGNS: Heart rate is 83, blood pressure 119/79, room air O2 sats are 94%, respirations 18, tem perature 97.8. NECK: There is no obvious JVD. He has well healed surgical scars from his previous surgery. LUNGS: No obvious wheezing, rales, or rhonchi. CARDIOVASCULAR: Regular rate and rhythm. ABDOMEN: Soft and nontender. EXTREMITIES: He has no present edema in his lower extremities. LABORATORY DATA: White count in the 4.2-5.2 range over the last month and is 5.2 on presentation her e with hemoglobin of 14.4, platelets 167,000. He has mildly positive troponin at 1.5-1.6 range on mu ltiple draws. Electrolytes are normal. CO2 is 19, BUN 20, creatinine 1.01. Bilirubin is 1.9. LFTs were otherwise normal. BNP was 1789. His chest x-ray in [facility] shows a very large heart wit h marked pulmonary edema. His CT scan showed a partially occluding filling defect distally and one o f the left-sided pulmonary arteries. ASSESSMENT AND RECOMMENDATIONS: I suspect that his current shortness of breath is more to do with fa ilure than pulmonary emboli is not even clear to me based on review of his CT scan if this is an old or new pulmonary embolus even though Doppler study would suggest poor compressibility and thrombus fa irly high in the left leg and much more modest disease in the right. Given the patient's medical non compliance, I suppose that it would be reasonable to offer him vena caval filtration to prophylax aga inst future PEs as he was not apt to be compliant with anticoagulation and attempting to send him karla e with anticoagulation could even be dangerous. However, the patient cannot quite seem to make up hi s mind how to proceed, so I will simply defer for the time being.
[2017-07-10] MEDS ORDERED: ISOVUE-370 76%-LOCM 1 ML ONE (16:08)
[2017-07-10] MEDS: Apixaban 5 MG TAB PO SCH (21:11)
[2017-07-11 05:52] LABS: INR-International Normal Ratio 1.6; PTT 36.8 SEC (22.9-36.1); Prothrombin Time 19.3 SEC (12.0-14.7)
[2017-07-11 06:05] LABS: ALT (SGPT) 18 U/L (8-55); AST (SGOT) 19 U/L (5-34); Albumin 3.2 g/dL (3.4-4.8); Alkaline Phosphatase 90 U/L (40-150); Anion Gap 12 mmol/L (10-20); BUN (Urea Nitrogen) 23 mg/dL (8.4-25.7); Bilirubin, Total 1.2 mg/dL (0.2-1.2); Calc. Creatinine Clearance 66 mL/min (70-130); Calcium 8.7 mg/dL (7.8-10.44); Carbon Dioxide 25 mmol/L (23-31); Chloride 105 mmol/L (98-107); Estimated GFR-MDRD 83; Globulin 2.9 g/dL (2.4-3.5); Glucose 104 mg/dL (83-110); Magnesium 1.8 mg/dL (1.6-2.6); Potassium 3.9 mmol/L (3.5-5.1); Protein, Total 6.1 g/dL (5.8-8.1); Sodium 138 mmol/L (136-145)
[2017-07-11 06:24] LABS: Eosinophils 2 % (0-10); Hemoglobin 12.1 g/dL (14.0-18.0); Lymphocytes 58 % (21-51); MDiff Complete? YES; Macrocytosis SLIGHT = 6-15 cells (100X) (0-5/hpf); Mean Corpuscular HGB CONC 32.2 g/dL (32.0-36.0); Mean Corpuscular Volume 96.2 fl (80.0-94.0); Mean Platelet Volume 8.2 fL (7.4-10.4); Monocytes 7 % (0-10); Neutrophil 29 % (42-75); PLT Morphology Comment Appears Adequate; Platelet Count 171 thou/uL (130-400); RBC Distribution Width 14.8 % (11.5-14.5); Reactive Lymphocytes 3 % (0-10); Red Blood Cell (RBC) Count 3.92 mill/uL (4.70-6.10)
[2017-07-11] MEDS: Furosemide 20 MG TAB PO SCH ×2 (06:27→12:31)
[2017-07-11] MEDS: Apixaban 5 MG TAB PO SCH ×2 (07:59→20:19)
[2017-07-11] MEDS: Docusate 100 MG CAP PO SCH ×2 (08:00→20:19)
[2017-07-11] MEDS: Famotidine 20 MG TAB PO SCH ×2 (08:00→20:19)
[2017-07-11] MEDS: Carvedilol 3.125 MG TAB PO SCH ×2 (08:00→20:20)
[2017-07-11] MEDS: Lisinopril 2.5 MG TAB PO SCH (08:00)
[2017-07-11] MEDS: Spironolactone 25 MG TAB PO SCH (09:10)
--- NOTE | 2017-07-11 11:28 | PDOC.PN ---
- Subjective Encounter Start Date: 07/11/17 Encounter Start Time: 07:20 pt denies chest pain, no dyspnea, he has very poor understanding about his disease Patient seen and examined. No new complaints. No overnight events - Objective Resuscitation Status: Resuscitation Status FULL:Full Resuscitation MAR Reviewed: Yes Vital Signs & Weight: Vital Signs (12 hours) Temp Pulse Resp BP BP Pulse Ox 07/11/17 09:40 97.8 F 71 16 98 07/11/17 08:00 71 118/69 07/11/17 07:57 97.8 F 71 16 118/69 98 07/11/17 05:41 98 07/11/17 04:00 98.2 F 63 20 114/76 92 L I&O: 07/10/17 07/11/17 07/12/17 06:59 06:59 06:59 Output Total 425 Balance -425 Result Diagrams: 07/11/17 04:50 07/11/17 04:50 EKG Reviewed by me: Yes Phys Exam - Physical Examination Constitutional: NAD HEENT: PERRLA, moist MMs, sclera anicteric Neck: no JVD, supple Respiratory: no wheezing, no rales, no rhonchi reduced air entry at base Cardiovascular: RRR, no rub SM+ Gastrointestinal: soft, non-tender, no distention, positive bowel sounds Musculoskeletal: no edema, pulses present Neurological: non-focal, normal sensation, moves all 4 limbs Lymphatic: no nodes Psychiatric: normal affect Skin: no rash, normal turgor Dx/Plan (1) Acute on chronic systolic (congestive) heart failure Code(s): I50.23 - ACUTE ON CHRONIC SYSTOLIC (CONGESTIVE) HEART FAILURE Status : Acute Comment: (2) DVT, bilateral lower limbs Code(s): I82.403 - ACUTE EMBOLISM AND THOMBOS UNSP DEEP VEINS OF LOW EXTRM, BI Status: Acute Qualifiers: Affected thrombotic vein of extremity: popliteal Chronicity: acute Qualified Code(s): I82.433 - Acute embolism and thrombosis of popliteal vein, bilateral (3) Demand ischemia of myocardium Code(s): I24.8 - OTHER FORMS OF ACUTE ISCHEMIC HEART DISEASE Status: Acute (4) Pulmonary embolism Code(s): I26.99 - OTHER PULMONARY EMBOLISM WITHOUT ACUTE COR PULMONALE Status : Acute Qualifiers: Chronicity: acute (5) Alcohol abuse Code(s): F10.10 - ALCOHOL ABUSE, UNCOMPLICATED Status: Chronic (6) Coronary artery disease Code(s): I25.10 - ATHSCL HEART DISEASE OF [place] CORONARY ARTERY W/O ANG PCTRS Status: Chronic Comment: (7) Dyslipidemia Code(s): E78.5 - HYPERLIPIDEMIA, UNSPECIFIED Status: Chronic Comment: (8) H/O sick sinus syndrome Code(s): Z86.79 - PERSONAL HISTORY OF OTHER DISEASES OF THE CIRCULATORY SYSTEM Status: Chronic (9) Hypertension Code(s): I10 - ESSENTIAL (PRIMARY) HYPERTENSION Status: Chronic Comment: (10) Noncompliance with medication regimen Code(s): Z91.14 - PATIENT'S OTHER NONCOMPLIANCE WITH MEDICATION REGIMEN Status : Chronic Comment: (11) Tobacco abuse Code(s): Z72.0 - TOBACCO USE Status: Chronic (12) Severe mitral regurgitation Code(s): I34.0 - NONRHEUMATIC MITRAL (VALVE) INSUFFICIENCY Status: Acute - Plan cont current plan of care * will consult cardiology for worsening of EF * pt has not decided about IVC filter * continue elliquis * because of his noncompliance, he is always at high risk for readmission and poor outcome * medication reviewed as below * symptomatic treatment * continue lasix. Review of Systems - Review of Systems ENT: negative: Ear Pain, Ear Discharge, Nose Pain, Nose Discharge, Nose Congestion, Mouth Pain, Mouth Swelling, Throat Pain, Throat Swelling, Other Respiratory: negative: Cough, Dry, Shortness of Breath, Hemoptysis, SOB with Excertion, Pleuritic Pain, Sputum, Wheezing Cardiovascular: negative: chest pain, palpitations, orthopnea, paroxysmal nocturnal dyspnea, edema, light headedness, other Gastrointestinal: negative: Nausea, Vomiting, Abdominal Pain, Diarrhea, Constipation, Melena, Hematochezia, Other Genitourinary: negative: Dysuria, Frequency, Incontinence, Hematuria, Retention , Other Musculoskeletal: negative: Neck Pain, Shoulder Pain, Arm Pain, Back Pain, Hand Pain, Leg Pain, Foot Pain, Other Skin: negative: Rash, Lesions, Isaiah, Bruising, Other - Medications/Allergies Allergies/Adverse Reactions: Allergies Allergy/AdvReac Type Severity Reaction Status Date / Time No Known Allergies Allergy Verified 04/16/17 01:56 Medications: Current Medications Acetaminophen (Tylenol) 650 mg PO Q4H PRN PRN Reason: Headache/Fever or Pain Apixaban (Eliquis) 10 mg PO BID [facility] Stop: 07/17/17 09:01 Last Admin: 07/11/17 07:59 Dose: 10 mg Apixaban (Eliquis) 5 mg PO BID [facility] Calcium Carbonate (Tums) 1,000 mg PO Q4H PRN PRN Reason: Heartburn or Indigestion Carvedilol (Coreg) 3.125 mg PO BID [facility] Last Admin: 07/11/17 08:00 Dose: 3.125 mg Docusate Sodium (Colace) 100 mg PO BID [facility] Last Admin: 07/11/17 08:00 Dose: 100 mg Famotidine (Pepcid) 20 mg PO BID [facility] Last Admin: 07/11/17 08:00 Dose: 20 mg Furosemide (Lasix) 40 mg PO 0600,1300 [facility] Last Admin: 07/11/17 06:27 Dose: 40 mg Lisinopril (Zestril) 2.5 mg PO DAILY [facility] Last Admin: 07/11/17 08:00 Dose: 2.5 mg Nitroglycerin (Nitrostat) 0.4 mg PO Q5MIN PRN PRN Reason: Chest Pain Ondansetron HCl (Zofran Odt) 4 mg PO Q6H PRN PRN Reason: Nausea/Vomiting Ondansetron HCl (Zofran) 4 mg IVP Q6H PRN PRN Reason: Nausea/Vomiting Senna (Senokot) 2 tab PO HSPRN PRN PRN Reason: Constipation Sodium Chloride (Flush - Normal Saline) 10 ml IVF PRN PRN PRN Reason: Saline Flush Last Admin: 07/11/17 08:01 Dose: 10 ml Spironolactone (Aldactone) 25 mg PO [facility] Last Admin: 07/11/17 09:10 Dose: 25 mg
[2017-07-11] MEDS ORDERED: Aspirin 81 mg Enteric Coated Tablet PO SCH ×2 (12:30→13:00)
--- NOTE | 2017-07-11 13:27 | CON ---
DATE OF CONSULTATION: 07/11/2017 [facility] CASINO MANAGER: Dr. Simons. REASON FOR CONSULTATION: Congestive heart failure. HISTORY OF PRESENT ILLNESS: Mr. Kiser is a 72-year-old gentleman who has a history of coronary artery disease and congestive heart failure as well as noncompliance. The patient was admitted to the hosp ital with difficulty breathing and was found to be volume overloaded. He is receiving diuretics also thought potentially have had a pulmonary emboli and treatments being directed toward that as well. Patient's ejection fraction 30%-35%. The patient has progressive shortness of breath when he tries t o lay supine. He is not having chest pain. PAST MEDICAL HISTORY: 1. Chronic systolic heart failure, ejection fraction 30%-35%. 2. Sick sinus syndrome, status post defibrillator. 3. Coronary artery disease, status post bypass surgery. 4. Hypertension 5. Hyperlipidemia. 6. History of pulmonary embolism. 7. Tobacco dependence. 8. History of noncompliance. PAST SURGICAL HISTORY: Previous bypass surgery and defibrillator implantation. ALLERGIES: None known. CURRENT MEDICATIONS: The patient was not taking any medicines the week prior to admission according to the notes. SOCIAL HISTORY: Chews tobacco daily. FAMILY HISTORY: Negative for premature coronary disease. REVIEW OF SYSTEMS: CONSTITUTIONAL: No significant weight gain or loss. VISION: No changes. HEARING: No changes. PULMONARY: Positive for shortness of breath. CARDIAC: Positive for shortness of breath and edema. GASTROINTESTINAL: No nausea, vomiting, diarrhea. SKIN: No rashes. NEUROLOGIC: No unilateral weakness or numbness. PSYCHIATRIC: No unusual depression or anxiety. HEMATOLOGIC: No unusual bruising. GENITOURINARY: No burning with urination. PHYSICAL EXAMINATION: GENERAL: This is a pleasant 72-year-old man, in no distress. VITAL SIGNS: Blood pressure 118/69, pulse 70. EYES: Sclerae nonicteric. Mouth mucous membranes moist. NECK: Supple, no lymphadenopathy. LUNGS: Clear. CARDIOVASCULAR: Normal S1, normal S2. There is a 2-3/6 apical systolic murmur. No diastolic murmur , no S3. ABDOMEN: Soft, nontender. EXTREMITIES: No clubbing or cyanosis. There is moderate edema. SKIN: Warm and dry. PSYCHIATRIC: Mood and affect normal. NEUROLOGIC: Grossly normal. LABORATORY AND X-RAY FINDINGS: EKG atrial paced, ventricular sensed. There are no acute changes. E KG on the that showed T-wave inversion laterally. PERTINENT LABORATORY DATA: Hemoglobin is 12.1, INR is 1.6 on the , troponin 1.6. ASSESSMENT: 1. History of congestive heart failure, ejection fraction 30%-35%. 2. Previous bypass surgery. 3. History of noncompliance. 4. Non-ST elevation infarction with troponin 1.5. PLAN: 1. Continue at least here in the hospital with apixaban for probable pulmonary embolism and will als o add aspirin. 2. Continue lisinopril. 3. Continue diuretic therapy. 4. Some consideration being given to a filter being placed, but the patient is uncertain if he wishe d to proceed.
--- NOTE | 2017-07-11 14:42 | PRG ---
DATE OF SERVICE: 07/11/2017 SUBJECTIVE: He is a little more conversant today than he was yesterday. PHYSICAL EXAMINATION: VITAL SIGNS: Temperature 97.8, pulse 60, respiration 80, O2 sat 98%, blood pressure 122/76. HEENT: Unremarkable. NECK: No JVD. CHEST: Clear. CARDIAC: S1, S2 regular. ABDOMEN: Soft. EXTREMITIES: No edema. LABORATORY DATA: White blood cell count 4, hematocrit 37, platelet count 171. INR 1.6. Sodium 130, potassium 3.9, chloride 105, CO2 of 25, BUN 23, creatinine 1.1, glucose 104. ASSESSMENT: 1. Deep venous thrombosis/pulmonary embolism. 2. Medical noncompliance. RECOMMENDATIONS: Discussed with Dr. Becerra yesterday. An IVC filter would only be necessary as the patient absolutely refused to take anticoagulation at home. I tried to go through barriers to c ompliance with the patient. When I asked him if he could read, he immediately perked up and stated t hat he had a college degree from [place] and ran a business in the past. I told him it would be far preferable to take the medicine orally as this would work on the blood clots or as the filter wo uld do nothing except prevent possible embolism in the future from the legs. He will now think about this more closely and consider taking the anticoagulant therapy.
[2017-07-12] MEDS: Furosemide 20 MG TAB PO SCH ×2 (05:39→12:19)
--- NOTE | 2017-07-12 08:13 | PDOC.CTH ---
<Paula Sandhu - Last Filed: 07/12/17 12:45> Cardiology Progress Note - Subjective Awake, watching TV. Describes breathing as "so-so". Denies chest pain, pressure. Discussed plan for IVC filter placement tomorrow, patient concerned more with fluid restriction, dietary restriction. No overnight events. - ROS shortness of breath - Objective Vital Signs Temp Pulse Resp BP Pulse Ox 07/12/17 07:30 97.7 F 69 16 118/83 100 07/12/17 04:00 97.9 F 67 21 H 119/73 94 L 07/12/17 00:22 98 07/11/17 20:15 97.4 F L 62 20 116/74 98 Weight 158 lb 3 oz 07/11/17 07/12/17 07/13/17 06:59 06:59 06:59 Intake Total 1160 Output Total 425 825 Balance -425 335 - Physical Examination General/Neuro: alert & oriented x3, NAD Neck: no JVD present (supple, no distended neck veins) Lungs: unlabored respirations, other: (Dim BLL posteriorly) Heart: RRR Abdomen: NT/ND Extremities: + edema B Other PE findings: trace BLE edema - Telemetry Telemetry Rhythm: SR/A-paced, V-sensed - Labs Result Diagrams: 07/11/17 04:50 07/11/17 04:50 Troponin/CKMB Troponin I 1.521 ng/mL (< 0.028) H* 07/10/17 03:02 - Assessment/Plan 1. DVT, Pulm embolism-bilat LE DVT, LLL embolus, possible smaller embolus to RLL. Poor compliance c/ OAC, plan for IVC filter, CV following. Plan to hold apixaban, bridge c/ enoxaparin 2.NSTEMI-trop max 1.6, chest pain free 3.Acute systolic HF-echo this admission reveals decreased EF of 10%-15%, remains volume overloaded, continue diuresis. 4. CAD-s/p CABG, continue ECASA, BB, statin 5.HTN-adequately controlled on current regimen 6.Tobacco Dependence-advised complete cessation, not interested in stopping at this time <Marion Fonseca - Last Filed: 07/12/17 14:24> Cardiology Progress Note - Objective Vital Signs Temp Pulse Resp BP BP BP Pulse Ox 07/12/17 13:16 97.5 F L 71 16 130/86 95 07/12/17 09:11 69 118/83 07/12/17 09:00 97.7 F 69 16 100 07/12/17 07:30 97.7 F 69 16 118/83 100 07/12/17 04:00 97.9 F 67 21 H 119/73 94 L Weight 158 lb 3 oz 07/11/17 07/12/17 07/13/17 06:59 06:59 06:59 Intake Total 1160 Output Total 425 825 Balance -425 335 - Labs Result Diagrams: 07/11/17 04:50 07/11/17 04:50 Troponin/CKMB Troponin I 1.521 ng/mL (< 0.028) H* 07/10/17 03:02 Attending Addendum - Attending Addendum Date/Time: 07/12/17 1429 I personally evaluated the patient and discussed the management with Paula Sandhu [employer] I agree with the History, Examination, Assessment and Plan documented above with any addition or exceptions noted below.
[2017-07-12] MEDS: Spironolactone 25 MG TAB PO SCH (09:10)
[2017-07-12] MEDS: Enoxaparin Sodium 60 MG/0.6 ML SYRINGE SC SCH ×2 (09:10→20:29)
[2017-07-12] MEDS: Aspirin 81 mg Enteric Coated Tablet PO SCH (09:10)
[2017-07-12] MEDS: Carvedilol 3.125 MG TAB PO SCH ×2 (09:11→20:28)
[2017-07-12] MEDS: Lisinopril 2.5 MG TAB PO SCH (09:11)
[2017-07-12] MEDS: Docusate 100 MG CAP PO SCH ×2 (09:11→20:29)
[2017-07-12] MEDS: Famotidine 20 MG TAB PO SCH ×2 (09:11→20:29)
--- NOTE | 2017-07-12 10:12 | PDOC.PN ---
- Subjective Encounter Start Date: 07/12/17 Encounter Start Time: 07:30 Patient seen and examined. No new complaints. No overnight events - Objective Resuscitation Status: Resuscitation Status FULL:Full Resuscitation MAR Reviewed: Yes Vital Signs & Weight: Vital Signs (12 hours) Temp Pulse Resp BP BP Pulse Ox 07/12/17 09:11 69 118/83 07/12/17 09:00 97.7 F 69 16 100 07/12/17 07:30 97.7 F 69 16 118/83 100 07/12/17 04:00 97.9 F 67 21 H 119/73 94 L 07/12/17 00:22 98 Weight Weight 158 lb 3 oz I&O: 07/11/17 07/12/17 07/13/17 06:59 06:59 06:59 Intake Total 1160 Output Total 425 825 Balance -425 335 Result Diagrams: 07/11/17 04:50 07/11/17 04:50 EKG Reviewed by me: Yes (pacing) Phys Exam - Physical Examination Constitutional: NAD HEENT: PERRLA, moist MMs, sclera anicteric Neck: no JVD, supple Respiratory: no wheezing, no rales, no rhonchi Cardiovascular: RRR, no significant murmur, no rub Gastrointestinal: soft, non-tender, no distention, positive bowel sounds Musculoskeletal: no edema, pulses present Neurological: non-focal, normal sensation, moves all 4 limbs Lymphatic: no nodes Psychiatric: normal affect, A&O x 3 Skin: no rash, normal turgor Dx/Plan (1) Acute on chronic systolic (congestive) heart failure Code(s): I50.23 - ACUTE ON CHRONIC SYSTOLIC (CONGESTIVE) HEART FAILURE Status : Acute Comment: (2) DVT, bilateral lower limbs Code(s): I82.403 - ACUTE EMBOLISM AND THOMBOS UNSP DEEP VEINS OF LOW EXTRM, BI Status: Acute Qualifiers: Affected thrombotic vein of extremity: popliteal Chronicity: acute Qualified Code(s): I82.433 - Acute embolism and thrombosis of popliteal vein, bilateral (3) Demand ischemia of myocardium Code(s): I24.8 - OTHER FORMS OF ACUTE ISCHEMIC HEART DISEASE Status: Acute (4) Pulmonary embolism Code(s): I26.99 - OTHER PULMONARY EMBOLISM WITHOUT ACUTE COR PULMONALE Status : Acute Qualifiers: Chronicity: acute (5) Alcohol abuse Code(s): F10.10 - ALCOHOL ABUSE, UNCOMPLICATED Status: Chronic (6) Coronary artery disease Code(s): I25.10 - ATHSCL HEART DISEASE OF [place] CORONARY ARTERY W/O ANG PCTRS Status: Chronic Comment: (7) Dyslipidemia Code(s): E78.5 - HYPERLIPIDEMIA, UNSPECIFIED Status: Chronic Comment: (8) H/O sick sinus syndrome Code(s): Z86.79 - PERSONAL HISTORY OF OTHER DISEASES OF THE CIRCULATORY SYSTEM Status: Chronic (9) Hypertension Code(s): I10 - ESSENTIAL (PRIMARY) HYPERTENSION Status: Chronic Comment: (10) Noncompliance with medication regimen Code(s): Z91.14 - PATIENT'S OTHER NONCOMPLIANCE WITH MEDICATION REGIMEN Status : Chronic Comment: (11) Tobacco abuse Code(s): Z72.0 - TOBACCO USE Status: Chronic (12) Severe mitral regurgitation Code(s): I34.0 - NONRHEUMATIC MITRAL (VALVE) INSUFFICIENCY Status: Acute - Plan cont current plan of care * today CT abdomen and pelvis * tomorrow possibly IVC filter * continue elliquis * continue lasix and optimum medical therapy for CHF * medication reviewed as below * symptomatic treatment * will need social work for medication assistance on discharge. Review of Systems - Review of Systems Constitutional: negative: fever, chills, sweats, weakness, malaise, other Eyes: negative: Pain, Vision Change, Conjunctivae Inflammation, Eyelid Inflammation, Redness, Other ENT: negative: Ear Pain, Ear Discharge, Nose Pain, Nose Discharge, Nose Congestion, Mouth Pain, Mouth Swelling, Throat Pain, Throat Swelling, Other Respiratory: negative: Cough, Dry, Shortness of Breath, Hemoptysis, SOB with Excertion, Pleuritic Pain, Sputum, Wheezing Cardiovascular: negative: chest pain, palpitations, orthopnea, paroxysmal nocturnal dyspnea, edema, light headedness, other Gastrointestinal: negative: Nausea, Vomiting, Abdominal Pain, Diarrhea, Constipation, Melena, Hematochezia, Other Genitourinary: negative: Dysuria, Frequency, Incontinence, Hematuria, Retention , Other Musculoskeletal: negative: Neck Pain, Shoulder Pain, Arm Pain, Back Pain, Hand Pain, Leg Pain, Foot Pain, Other Skin: negative: Rash, Lesions, Isaiah, Bruising, Other - Medications/Allergies Allergies/Adverse Reactions: Allergies Allergy/AdvReac Type Severity Reaction Status Date / Time No Known Allergies Allergy Verified 04/16/17 01:56 Medications: Current Medications Acetaminophen (Tylenol) 650 mg PO Q4H PRN PRN Reason: Headache/Fever or Pain Apixaban (Eliquis) 5 mg PO BID [facility] Aspirin (Ecotrin) 81 mg PO DAILY [facility] Last Admin: 07/12/17 09:10 Dose: 81 mg Calcium Carbonate (Tums) 1,000 mg PO Q4H PRN PRN Reason: Heartburn or Indigestion Carvedilol (Coreg) 3.125 mg PO BID [facility] Last Admin: 07/12/17 09:11 Dose: 3.125 mg Docusate Sodium (Colace) 100 mg PO BID [facility] Last Admin: 07/12/17 09:11 Dose: 100 mg Enoxaparin Sodium (Lovenox) 60 mg SC 0900,2100 [facility] Stop: 07/12/17 21:01 Last Admin: 07/12/17 09:10 Dose: 60 mg Famotidine (Pepcid) 20 mg PO BID [facility] Last Admin: 07/12/17 09:11 Dose: 20 mg Furosemide (Lasix) 40 mg PO 0600,1300 [facility] Last Admin: 07/12/17 05:39 Dose: 40 mg Lisinopril (Zestril) 2.5 mg PO DAILY [facility] Last Admin: 07/12/17 09:11 Dose: 2.5 mg Nitroglycerin (Nitrostat) 0.4 mg PO Q5MIN PRN PRN Reason: Chest Pain Ondansetron HCl (Zofran Odt) 4 mg PO Q6H PRN PRN Reason: Nausea/Vomiting Ondansetron HCl (Zofran) 4 mg IVP Q6H PRN PRN Reason: Nausea/Vomiting Senna (Senokot) 2 tab PO HSPRN PRN PRN Reason: Constipation Sodium Chloride (Flush - Normal Saline) 10 ml IVF PRN PRN PRN Reason: Saline Flush Last Admin: 07/11/17 08:01 Dose: 10 ml Spironolactone (Aldactone) 25 mg PO QAM-[facility] Last Admin: 07/12/17 09:10 Dose: 25 mg
--- NOTE | 2017-07-12 13:18 | CT ---
CT ABDOMEN AND PELVIS WITH CONTRAST: Date: 07/12/17 HISTORY: Deep venous thrombosis, preop IVC filter. COMPARISON: None. FINDINGS: There is a left lower lobe segmental pulmonary embolus. Small left effusion. Heart size enlarged. Sma ll pericardial effusion. Reflux of contrast in the suprahepatic IVC as well as hepatic veins and infr ahepatic IVC. There is extensive atherosclerotic plaque of the abdominal aorta. There is a fusiform aneurysm of the infrarenal abdominal aorta measuring up to 3.1 cm with extensive plaque. The lumen is narrowed due t o the large volume plaque. The ostia at the renal arteries is mildly narrowed due to plaque. There is cortical thinning anterior pole of left kidney, may be sequelae of prior infarction. Mild na rrowing of the superior mesenteric artery and celiac artery due to plaque. IVC is right-sided. Skeleton is unremarkable No free intraperitoneal gas or fluid. Prostate markedly enlarged. The intraabdominal and intrapelvic solid organs are poorly enhanced due to poor cardiac output. 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 Multiple areas of exte rnal and internal iliac arterial narrowing. IMPRESSION: 1. Poor contrast enhancement of the solid organs of the abdomen and pelvis due to right heart dysfun ction. 2. 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 3. 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 4. Focal scarring anterior pole of left kidney may be sequelae of prior infarction or postsurgical i n nature. 5. Right-sided IVC without anomaly. 6. Left lower lobe segmental pulmonary arterial embolism. POS: [facility]
--- NOTE | 2017-07-12 13:46 | PRG ---
DATE OF SERVICE: 07/12/2017 SUBJECTIVE: He is awake, alert, no complaints. PHYSICAL EXAMINATION: VITAL SIGNS: Temperature 97.7, pulse 69, blood pressure 118/83, O2 sat 100%. HEENT: Unremarkable. NECK: No JVD. CHEST: Clear. CARDIAC: S1 and S2 regular. ABDOMEN: Soft. EXTREMITIES: No edema. LABORATORY DATA: No labs were done today. ASSESSMENT: Deep venous thrombosis/pulmonary embolus. PLAN: I would probably give him a chance to see if he can be compliant with blood thinners and only place a filter if we think he is definitely going to be noncompliant.
[2017-07-12] MEDS ORDERED: ISOVUE-370 76%-LOCM 1 ML ONE (14:22)
[2017-07-13] MEDS: Furosemide 20 MG TAB PO SCH ×2 (04:55→14:40)
[2017-07-13] MEDS: Famotidine 20 MG TAB PO SCH ×2 (05:00→21:15)
[2017-07-13] MEDS: Lisinopril 2.5 MG TAB PO SCH (05:00)
[2017-07-13] MEDS: Carvedilol 3.125 MG TAB PO SCH ×2 (05:00→21:15)
[2017-07-13 05:16] LABS: Hemoglobin 13.3 g/dL (14.0-18.0); Platelet Count 184 thou/uL (130-400)
--- NOTE | 2017-07-13 09:41 | PRG ---
DATE OF SERVICE: 07/13/2017 SUBJECTIVE: Mr. Kiser was admitted over the weekend for congestive heart failure. Unfortunately, Mr. Kiser continues to be noncompliant. He has also diagnosed with PE with DVT. IVC filter was recommen ded. OBJECTIVE: VITAL SIGNS: Blood pressure 111/67, pulse 70, temperature 98. LUNGS: Clear to auscultation. HEART: Regular rate and rhythm. ABDOMEN: Soft, nontender, nondistended. EXTREMITIES: No edema. IMPRESSION: 1. Acute on chronic systolic heart failure. 2. Coronary artery disease. 3. Recent pulmonary embolism with deep venous thrombosis. RECOMMENDATIONS: Unfortunately, Mr. Kiser's continued concern is compliance. At this point, we will treat acutely as prescribed. CV Surgery has been consulted for IVC filter placement. Mr. Kiser is un sure on how he would like to proceed. Given his compliance issues, his anticoagulation therapy is no t felt to be appropriate. Continue aspirin in addition to carvedilol, lisinopril, and Lasix.
[2017-07-13] MEDS ORDERED: Iopamidol 370 76% 50 ML VIAL FS ONE (09:53)
--- NOTE | 2017-07-13 10:33 | PRG ---
DATE OF SERVICE: 07/13/2017 He is awake, alert, in no distress. PHYSICAL EXAMINATION: VITAL SIGNS: Temperature 98.0, pulse 70, respirations 20, O2 sat 95% on room air, blood pressure 111 /69. HEENT: Unremarkable. NECK: No JVD. CHEST: Clear. CARDIAC: S1 and S2 regular. ABDOMEN: Soft. EXTREMITIES: edema. ASSESSMENT: Deep venous thrombosis/pulmonary embolus. PLAN: Anticoagulation for the time being. IVC filter should be reserved for medical noncompliance.
--- NOTE | 2017-07-13 11:31 | PDOC.PN ---
- Subjective Encounter Start Date: 07/13/17 Encounter Start Time: 09:00 Patient seen and examined. No new complaints. No overnight events - Objective Resuscitation Status: Resuscitation Status FULL:Full Resuscitation MAR Reviewed: Yes Vital Signs & Weight: Vital Signs (12 hours) Temp Pulse Resp BP BP Pulse Ox 07/13/17 08:00 98.0 F 70 20 95 07/13/17 07:54 98.0 F 70 20 111/69 95 07/13/17 05:00 69 07/13/17 04:00 97.8 F 69 16 117/79 92 L Weight Weight 157 lb 8 oz I&O: 07/12/17 07/13/17 07/14/17 06:59 06:59 06:59 Intake Total 1160 1080 Output Total 825 600 Balance 335 480 Result Diagrams: 07/13/17 04:21 07/13/17 04:21 EKG Reviewed by me: Yes (pacing) Phys Exam - Physical Examination Constitutional: NAD HEENT: PERRLA, moist MMs, sclera anicteric Neck: no JVD, supple Respiratory: no wheezing, no rales, no rhonchi Cardiovascular: RRR, no significant murmur, no rub Gastrointestinal: soft, non-tender, no distention, positive bowel sounds Musculoskeletal: no edema, pulses present Neurological: non-focal, normal sensation, moves all 4 limbs Psychiatric: normal affect, A&O x 3 Skin: no rash, normal turgor Dx/Plan (1) Acute on chronic systolic (congestive) heart failure Code(s): I50.23 - ACUTE ON CHRONIC SYSTOLIC (CONGESTIVE) HEART FAILURE Status : Acute Comment: (2) DVT, bilateral lower limbs Code(s): I82.403 - ACUTE EMBOLISM AND THOMBOS UNSP DEEP VEINS OF LOW EXTRM, BI Status: Acute Qualifiers: Affected thrombotic vein of extremity: popliteal Chronicity: acute Qualified Code(s): I82.433 - Acute embolism and thrombosis of popliteal vein, bilateral (3) Demand ischemia of myocardium Code(s): I24.8 - OTHER FORMS OF ACUTE ISCHEMIC HEART DISEASE Status: Acute (4) Pulmonary embolism Code(s): I26.99 - OTHER PULMONARY EMBOLISM WITHOUT ACUTE COR PULMONALE Status : Acute Qualifiers: Chronicity: acute (5) Alcohol abuse Code(s): F10.10 - ALCOHOL ABUSE, UNCOMPLICATED Status: Chronic (6) Coronary artery disease Code(s): I25.10 - ATHSCL HEART DISEASE OF [place] CORONARY ARTERY W/O ANG PCTRS Status: Chronic Comment: (7) Dyslipidemia Code(s): E78.5 - HYPERLIPIDEMIA, UNSPECIFIED Status: Chronic Comment: (8) H/O sick sinus syndrome Code(s): Z86.79 - PERSONAL HISTORY OF OTHER DISEASES OF THE CIRCULATORY SYSTEM Status: Chronic (9) Hypertension Code(s): I10 - ESSENTIAL (PRIMARY) HYPERTENSION Status: Chronic Comment: (10) Noncompliance with medication regimen Code(s): Z91.14 - PATIENT'S OTHER NONCOMPLIANCE WITH MEDICATION REGIMEN Status : Chronic Comment: (11) Tobacco abuse Code(s): Z72.0 - TOBACCO USE Status: Chronic (12) Severe mitral regurgitation Code(s): I34.0 - NONRHEUMATIC MITRAL (VALVE) INSUFFICIENCY Status: Acute (13) PAD (peripheral artery disease) Code(s): I73.9 - PERIPHERAL VASCULAR DISEASE, UNSPECIFIED Status: Chronic (14) AAA (abdominal aortic aneurysm) Code(s): I71.4 - ABDOMINAL AORTIC ANEURYSM, WITHOUT RUPTURE Status: Chronic Qualifiers: Presence of rupture: without rupture Qualified Code(s): I71.4 - Abdominal aortic aneurysm, without rupture - Plan cont current plan of care * social work to assist medication * today IVC filter * medication reviewed as below * symptomatic treatment * high risk for readmission due to his non compliance * possible discharge if CT surgeon OK and medication assisted. Review of Systems - Review of Systems Eyes: negative: Pain, Vision Change, Conjunctivae Inflammation, Eyelid Inflammation, Redness, Other ENT: negative: Ear Pain, Ear Discharge, Nose Pain, Nose Discharge, Nose Congestion, Mouth Pain, Mouth Swelling, Throat Pain, Throat Swelling, Other Respiratory: negative: Cough, Dry, Shortness of Breath, Hemoptysis, SOB with Excertion, Pleuritic Pain, Sputum, Wheezing Cardiovascular: negative: chest pain, palpitations, orthopnea, paroxysmal nocturnal dyspnea, edema, light headedness, other Gastrointestinal: negative: Nausea, Vomiting, Abdominal Pain, Diarrhea, Constipation, Melena, Hematochezia, Other Genitourinary: negative: Dysuria, Frequency, Incontinence, Hematuria, Retention , Other Musculoskeletal: negative: Neck Pain, Shoulder Pain, Arm Pain, Back Pain, Hand Pain, Leg Pain, Foot Pain, Other Skin: negative: Rash, Lesions, Isaiah, Bruising, Other - Medications/Allergies Allergies/Adverse Reactions: Allergies Allergy/AdvReac Type Severity Reaction Status Date / Time No Known Allergies Allergy Verified 04/16/17 01:56 Medications: Current Medications Acetaminophen (Tylenol) 650 mg PO Q4H PRN PRN Reason: Headache/Fever or Pain Apixaban (Eliquis) 5 mg PO BID [facility] Aspirin (Ecotrin) 81 mg PO DAILY [facility] Last Admin: 07/12/17 09:10 Dose: 81 mg Calcium Carbonate (Tums) 1,000 mg PO Q4H PRN PRN Reason: Heartburn or Indigestion Carvedilol (Coreg) 3.125 mg PO BID [facility] Last Admin: 07/13/17 05:00 Dose: 3.125 mg Docusate Sodium (Colace) 100 mg PO BID [facility] Last Admin: 07/12/17 20:29 Dose: 100 mg Famotidine (Pepcid) 20 mg PO BID [facility] Last Admin: 07/13/17 05:00 Dose: 20 mg Furosemide (Lasix) 40 mg PO 0600,1300 [facility] Last Admin: 07/13/17 04:55 Dose: Not Given Lisinopril (Zestril) 2.5 mg PO DAILY [facility] Last Admin: 07/13/17 05:00 Dose: 2.5 mg Nitroglycerin (Nitrostat) 0.4 mg PO Q5MIN PRN PRN Reason: Chest Pain Ondansetron HCl (Zofran Odt) 4 mg PO Q6H PRN PRN Reason: Nausea/Vomiting Ondansetron HCl (Zofran) 4 mg IVP Q6H PRN PRN Reason: Nausea/Vomiting Senna (Senokot) 2 tab PO HSPRN PRN PRN Reason: Constipation Sodium Chloride (Flush - Normal Saline) 10 ml IVF PRN PRN PRN Reason: Saline Flush Last Admin: 07/11/17 08:01 Dose: 10 ml Spironolactone (Aldactone) 25 mg PO QAM-[facility] Last Admin: 07/12/17 09:10 Dose: 25 mg
[2017-07-13] MEDS ORDERED: Midazolam HCl 2 mg/2 ml Vial ONE (14:33)
[2017-07-13] MEDS ORDERED: Fentanyl 100 MCG/2 ML VIAL ONE (14:33)
[2017-07-13] MEDS: Docusate 100 MG CAP PO SCH ×2 (14:40→21:15)
[2017-07-13] MEDS: Aspirin 81 mg Enteric Coated Tablet PO SCH (14:40)
[2017-07-13] MEDS: Spironolactone 25 MG TAB PO SCH (14:40)
--- NOTE | 2017-07-13 15:51 | OP ---
DATE OF PROCEDURE: 07/13/2017 PROCEDURE PERFORMED: Corddamaris Trapeze Inferior vena cava filter placement with ultrasound-guidance fluoroscopy. IVC gram with probing and cannulation of the right renal vein. 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 SURGEON: Yosi Becerra M.D. ANESTHESIA: A 1% lidocaine local anesthesia with intravenous sedation, consisting of 25 mcg of fentanyl and 1 mg of Versed. INDICATIONS: The patient is a notoriously unreliable 72-year-old male with a history of DVTs and pulmonary emboli. He presented with shortness of breath, and in the course of his evaluation, he was noted to have bilateral DVTs, worse on the left side than the right. He was documented to have residual filling defects in the left pulmonary arterial vasculature. After discussions with him , he has opted to place a vena cava filter rather than attempt long-term anticoagulation with any expectation that he would be reliable and compliant. FINDINGS: A total of 22 mL of half strength Isovue 370 contrast and 3.9 minutes of fluoro time used. The left renal vein was at about the L1-L2 interspace and the right renal vein just below the top of L2 and the filter was placed in the mid portion of the body of L2. NARRATIVE REPORT: After informed consent was obtained, the patient was taken to the laborer pole crew and placed on the fluoroscopy table. His groins were prepped and draped in sterile fashion. He was given 25 mcg of fentanyl and 1 mg of Versed intravenously for sedation and sterilely sleeved ultrasound probe was brought to the field and his right groin was examined. The femoral artery and vein were identified, and under ultrasound guidance, a large bore needle was used to cannulate the compressible right common femoral vein. A guidewire was placed in position and confirmed by fluoroscopy. Bony landmarks were also examined. A skin cortney was made and then a dilator and introducer sheath were placed over the wire, and the tip of the sheath was positioned in the mid body of L2, corresponding with the patient's CT scan as to the location of the renal veins. The dilator was removed and small boluses of contrast material was injected through the sheath. The left renal vein was relatively easy to identify. There was a suggestion of where the right renal vein came off and this was confirmed by using a guidewire and angled catheter to probe and cannulate the right renal vein with the location of the 2 renal veins identified. The catheter and wire were removed and the filter was advanced through the sheath with the tip just above the mid body of L2. The sheath was withdrawn, deploying the filter. The sheath was removed and hemostasis achieved with direct pressure. The patient was returned to the [facility] in good condition. JEFFERY
[2017-07-13] MEDS: Apixaban 5 MG TAB PO SCH (21:15)
[2017-07-14 05:19] VITALS: BMI 24.5
[2017-07-14] MEDS: Furosemide 20 MG TAB PO SCH ×2 (05:38→12:49)
[2017-07-14 08:33] VITALS: TEMP 98.4
[2017-07-14] MEDS: Famotidine 20 MG TAB PO SCH (08:38)
[2017-07-14] MEDS: Apixaban 5 MG TAB PO SCH (08:38)
[2017-07-14] MEDS: Lisinopril 2.5 MG TAB PO SCH (08:38)
[2017-07-14] MEDS: Aspirin 81 mg Enteric Coated Tablet PO SCH (08:38)
[2017-07-14] MEDS: Carvedilol 3.125 MG TAB PO SCH (08:38)
[2017-07-14] MEDS: Spironolactone 25 MG TAB PO SCH (08:39)
--- NOTE | 2017-07-14 08:41 | DIS ---
PRIMARY CARE PHYSICIAN: Brad Galeana M.D. DATE OF ADMISSION: 07/09/2017 DATE OF DISCHARGE: 07/14/2017 DISCHARGE DISPOSITION: Home. PRIMARY DISCHARGE DIAGNOSES: Acute on chronic systolic congestive heart failure, bilateral lower ext remity deep vein thrombosis, pulmonary embolism, demand ischemia of myocardium, status post IVC filte r. SECONDARY DISCHARGE DIAGNOSES: Tobacco abuse disorder, peripheral arterial disease, noncompliance wi th medical regimen, hypertension, history of sick sinus syndrome with pacemaker, dyslipidemia, hernandez ry artery disease, alcohol abuse, abdominal aortic aneurysm, severe mitral regurgitation, history of DVT, PE in past, chronic systolic and diastolic heart failure. PRIMARY PROCEDURE/OPERATION: IVC filter. RADIOLOGICAL INVESTIGATION: CT angiography showed pulmonary embolism. Ultrasound was positive for D VT in both popliteal veins. Echocardiography showed EF 10%-15%, severe mitral valve regurgitation. 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 SIGNIFICANT LABORATORY DATA: WBC 4.0, hemoglobin 13.3, platelet 184. INR 1.6. Sodium 138, potassiu m 3.9, BUN 23, creatinine 1.06. LFT normal. Troponin 1.521, creatinine 1.10. DISCHARGE MEDICATIONS: Eliquis 10 mg p.o. b.i.d. until 07/17/2017 and subsequently kept Eliquis 5 mg p.o. b.i.d., aspirin 81 mg p.o. daily, Lipitor 40 mg p.o. at bedtime, Coreg 3.125 mg p.o. b.i.d., di goxin 0.125 mg p.o. daily, Pepcid 20 mg p.o. b.i.d., Lasix 40 mg p.o. b.i.d., Imdur 30 mg p.o. daily, lisinopril 2.5 mg p.o. daily, Aldactone 25 mg p.o. daily, multivitamin 1 tablet p.o. daily. CONTRAINDICATIONS: None. CODE STATUS: FULL CODE. INPATIENT CONSULTANTS: Dr. Simons was following while in hospital. Dr. Rodriguez was consulted as well. Dr. Becerra was consulted for IVC filter. TEST RESULTS PENDING ON DISCHARGE: None. ALLERGIES: No known drug allergy. DISCHARGE PLAN: Post hospital, patient is instructed to follow up with Cardiology in 1 week. Hilario vera is also instructed to follow up with primary care physician in 1 week and [facility] Failure [facility]. HOSPITAL COURSE: A 72-year-old male with above-mentioned medical problem who was admitted by Dr. Murray morales on 07/10/2017. Please see his H&P for further details. This patient has underlying ischemic card iomyopathy and he was not taking any medication. This time, he came to ER with increasing shortness of breath. He was found with acute on chronic systolic heart failure. His chest x-ray showed pulmon aruna vascular congestion. His congestive heart failure, improved after treatment with Lasix. He was also having some pleuritic component of chest discomfort and that is why we did a CT angiograp hy, which showed pulmonary embolism. He has previous history of pulmonary embolism in past as well. During this admission, we did ultrasound lower extremity, it was positive for deep vein thrombosis i n both lower extremities. During this admission, we treated him with initially Lovenox 1 mg/kg and s leasequently pulmonary group decided to change to Eliquis therapy. While in hospital, he was getting Eliquis 10 mg p.o. b.i.d. for 1 week and then he will get Eliquis 5 mg p.o. b.i.d., Plavix is discont inued, only aspirin is continued. Upon discharge, we changed to Lasix 40 mg p.o. b.i.d., Imdur 30 mg added, Aldactone added. This patient ran out of all his home medication and that is why we consulted case supervisor to assist w [facility] medication. Cardiology was following for abnormal troponin. Dr. Becerra did IVC filter. Re ason for IVC filter during this admission is because we are thinking that based on patient's previous history, he is noncompliant with the treatment and he is at high risk for poor outcome from pulmonar y embolism with new DVT and that is why we decided to do IVC filter along with anticoagulation therap y. During this admission, echocardiography and the abdomen and pelvis CT scan was done. Abdomen and pel vis CT scan showed right femoral artery occlusion. Echocardiography showed worsening of EF. Today, I saw this patient bedside and explained plan of care. I discussed with him about compliance with treatment as well as compliance with not smoking as well as not drinking alcohol and follow up w ith primary care physician. PHYSICAL EXAMINATION: GENERAL: Patient was lying flat without any complaint and he is on room air. Patient is currently a lert, awake, no acute distress. VITAL SIGNS: Currently, temperature 98.5, pulse 70, respiratory rate 18, saturation 96% on room air, blood pressure 133/85, weight 156 pounds. HEAD: Normocephalic, atraumatic. EYES: Pupils round, reactive to light. Extraocular muscle intact. ENT: Oropharynx within normal limits. Moist mucous membrane, no oral lesion, no pharyngeal erythema , no exudate. NECK: Supple, no JVD, no thyromegaly, no carotid bruit. LUNGS: Clear to auscultation without any rhonchi or rales. CARDIAC: S1, S2 regular without any murmur. ABDOMEN: Soft and benign. EXTREMITIES: No edema. NEUROLOGIC: Nonfocal examination. All new medication prescriptions will be sent to his Pharmacy. Patient is medically stable for disch arge.
[2017-07-14] MEDS: Docusate 100 MG CAP PO SCH (08:45)
--- NOTE | 2017-07-14 09:18 | PDOC.PN ---
- Subjective Encounter Start Date: 07/14/17 Encounter Start Time: 09:00 Patient seen and examined. No new complaints. No overnight events - Objective Resuscitation Status: Resuscitation Status FULL:Full Resuscitation MAR Reviewed: Yes Vital Signs & Weight: Vital Signs (12 hours) Temp Pulse Resp BP BP Pulse Ox 07/14/17 08:38 72 07/14/17 08:28 98.4 F 72 20 130/72 100 07/14/17 04:20 98.5 F 70 18 133/85 96 07/14/17 04:00 98.5 F 70 18 133/85 96 07/14/17 00:00 98.7 F 70 18 128/87 98 Weight Weight 156 lb 11.2 oz I&O: 07/13/17 07/14/17 07/15/17 06:59 06:59 06:59 Intake Total 1080 836 Output Total 600 Balance 480 836 Result Diagrams: 07/13/17 04:21 07/13/17 04:21 EKG Reviewed by me: Yes Phys Exam - Physical Examination Constitutional: NAD HEENT: PERRLA, moist MMs, sclera anicteric Neck: no JVD, supple Respiratory: no wheezing, no rales, no rhonchi Cardiovascular: RRR, no significant murmur, no rub Gastrointestinal: soft, non-tender, no distention, positive bowel sounds Musculoskeletal: no edema, pulses present Neurological: non-focal, normal sensation, moves all 4 limbs Psychiatric: normal affect, A&O x 3 Skin: no rash, normal turgor Dx/Plan (1) Acute on chronic systolic (congestive) heart failure Code(s): I50.23 - ACUTE ON CHRONIC SYSTOLIC (CONGESTIVE) HEART FAILURE Status : Acute Comment: (2) DVT, bilateral lower limbs Code(s): I82.403 - ACUTE EMBOLISM AND THOMBOS UNSP DEEP VEINS OF LOW EXTRM, BI Status: Acute Qualifiers: Affected thrombotic vein of extremity: popliteal Chronicity: acute Qualified Code(s): I82.433 - Acute embolism and thrombosis of popliteal vein, bilateral (3) Demand ischemia of myocardium Code(s): I24.8 - OTHER FORMS OF ACUTE ISCHEMIC HEART DISEASE Status: Acute (4) Pulmonary embolism Code(s): I26.99 - OTHER PULMONARY EMBOLISM WITHOUT ACUTE COR PULMONALE Status : Acute Qualifiers: Chronicity: acute (5) Alcohol abuse Code(s): F10.10 - ALCOHOL ABUSE, UNCOMPLICATED Status: Chronic (6) Coronary artery disease Code(s): I25.10 - ATHSCL HEART DISEASE OF [place] CORONARY ARTERY W/O ANG PCTRS Status: Chronic Comment: (7) Dyslipidemia Code(s): E78.5 - HYPERLIPIDEMIA, UNSPECIFIED Status: Chronic Comment: (8) H/O sick sinus syndrome Code(s): Z86.79 - PERSONAL HISTORY OF OTHER DISEASES OF THE CIRCULATORY SYSTEM Status: Chronic (9) Hypertension Code(s): I10 - ESSENTIAL (PRIMARY) HYPERTENSION Status: Chronic Comment: (10) Noncompliance with medication regimen Code(s): Z91.14 - PATIENT'S OTHER NONCOMPLIANCE WITH MEDICATION REGIMEN Status : Chronic Comment: (11) Tobacco abuse Code(s): Z72.0 - TOBACCO USE Status: Chronic (12) Severe mitral regurgitation Code(s): I34.0 - NONRHEUMATIC MITRAL (VALVE) INSUFFICIENCY Status: Acute (13) PAD (peripheral artery disease) Code(s): I73.9 - PERIPHERAL VASCULAR DISEASE, UNSPECIFIED Status: Chronic (14) AAA (abdominal aortic aneurysm) Code(s): I71.4 - ABDOMINAL AORTIC ANEURYSM, WITHOUT RUPTURE Status: Chronic Qualifiers: Presence of rupture: without rupture Qualified Code(s): I71.4 - Abdominal aortic aneurysm, without rupture (15) S/P IVC filter Status: Acute - Plan cont current plan of care, protective services social worker * medication reviewed as below * symptomatic treatment * stable for discharge * medication assistance * see discharge jelly. Review of Systems - Review of Systems ENT: negative: Ear Pain, Ear Discharge, Nose Pain, Nose Discharge, Nose Congestion, Mouth Pain, Mouth Swelling, Throat Pain, Throat Swelling, Other Respiratory: negative: Cough, Dry, Shortness of Breath, Hemoptysis, SOB with Excertion, Pleuritic Pain, Sputum, Wheezing Cardiovascular: negative: chest pain, palpitations, orthopnea, paroxysmal nocturnal dyspnea, edema, light headedness, other Gastrointestinal: negative: Nausea, Vomiting, Abdominal Pain, Diarrhea, Constipation, Melena, Hematochezia, Other Genitourinary: negative: Dysuria, Frequency, Incontinence, Hematuria, Retention , Other Musculoskeletal: negative: Neck Pain, Shoulder Pain, Arm Pain, Back Pain, Hand Pain, Leg Pain, Foot Pain, Other Skin: negative: Rash, Lesions, Isaiah, Bruising, Other - Medications/Allergies Allergies/Adverse Reactions: Allergies Allergy/AdvReac Type Severity Reaction Status Date / Time No Known Allergies Allergy Verified 04/16/17 01:56 Medications: Current Medications Acetaminophen (Tylenol) 650 mg PO Q4H PRN PRN Reason: Headache/Fever or Pain Apixaban (Eliquis) 10 mg PO BID [facility] Last Admin: 07/14/17 08:38 Dose: 10 mg Aspirin (Ecotrin) 81 mg PO DAILY [facility] Last Admin: 07/14/17 08:38 Dose: 81 mg Calcium Carbonate (Tums) 1,000 mg PO Q4H PRN PRN Reason: Heartburn or Indigestion Carvedilol (Coreg) 3.125 mg PO BID [facility] Last Admin: 07/14/17 08:38 Dose: 3.125 mg Docusate Sodium (Colace) 100 mg PO BID [facility] Last Admin: 07/14/17 08:45 Dose: Not Given Famotidine (Pepcid) 20 mg PO BID [facility] Last Admin: 07/14/17 08:38 Dose: 20 mg Furosemide (Lasix) 40 mg PO 0600,1300 [facility] Last Admin: 07/14/17 05:38 Dose: 40 mg Lisinopril (Zestril) 2.5 mg PO DAILY [facility] Last Admin: 07/14/17 08:38 Dose: 2.5 mg Nitroglycerin (Nitrostat) 0.4 mg PO Q5MIN PRN PRN Reason: Chest Pain Ondansetron HCl (Zofran Odt) 4 mg PO Q6H PRN PRN Reason: Nausea/Vomiting Ondansetron HCl (Zofran) 4 mg IVP Q6H PRN PRN Reason: Nausea/Vomiting Senna (Senokot) 2 tab PO HSPRN PRN PRN Reason: Constipation Sodium Chloride (Flush - Normal Saline) 10 ml IVF PRN PRN PRN Reason: Saline Flush Last Admin: 07/14/17 08:37 Dose: 10 ml Spironolactone (Aldactone) 25 mg PO QAM-[facility] Last Admin: 07/14/17 08:39 Dose: 25 mg
[2017-07-14 15:56] VITALS: BP 137/86
[2017-07-17] MEDS ORDERED: Apixaban 5 MG TAB PO SCH (21:00)
== END 2017-07-14 16:37 | disposition home or self-care (01) | DRG 252 ==
LOC: ERS 23:25 → 2NO 23:55
PROVIDERS: ADMIT Internal Medicine; ATTEND Internal Medicine
PROC: 06H03DZ Insertion of Intraluminal Device into Inferior Vena Cava, Percutaneous Approach (ICD-10-PCS; principal; 2017-07-13)
DX: I82.403 Acute embolism and thrombosis of unspecified deep veins of lower extremity, bilateral (principal); I50.33 Acute on chronic diastolic (congestive) heart failure; I26.99 Other pulmonary embolism without acute cor pulmonale; I21.4 Non-ST elevation (NSTEMI) myocardial infarction; I13.0 Hypertensive heart and chronic kidney disease with heart failure and stage 1 through stage 4 chronic kidney disease, or unspecified chronic kidney disease; I24.8 Other forms of acute ischemic heart disease; I25.5 Ischemic cardiomyopathy; I25.10 Atherosclerotic heart disease of native coronary artery without angina pectoris; Z95.1 Presence of aortocoronary bypass graft; E78.5 Hyperlipidemia, unspecified; Z95.810 Presence of automatic (implantable) cardiac defibrillator; F17.210 Nicotine dependence, cigarettes, uncomplicated; F17.220 Nicotine dependence, chewing tobacco, uncomplicated; N18.2 Chronic kidney disease, stage 2 (mild); Z91.14 Patient's other noncompliance with medication regimen; F10.10 Alcohol abuse, uncomplicated; I73.9 Peripheral vascular disease, unspecified; I71.4 Abdominal aortic aneurysm, without rupture; I34.0 Nonrheumatic mitral (valve) insufficiency
CPT/HCPCS: 36415; 37191; 71275; 74177; 75625; 76942; 80048; 80053; 82565; 83735; 84484; 85014; 85018; 85025; 85049; 85610; 85730; 93005; 93306; 93970; 94760; 96372; A4216; C1725; C1769; J1650; J2250; J3010

== ENCOUNTER 2017-09-09 16:43 | Inpatient (IN) | payer MEDICARE ==
[2017-09-09 19:46] LABS: Troponin I 0.414 ng/mL (< 0.028)
[2017-09-09] MEDS ORDERED: Nitroglycerin 0.4 MG TAB (25 Tab Bottle) SL PRN (19:46)
[2017-09-09 21:30] LABS: Critical Call Chem Troponin I RESULT DECREASING
[2017-09-09 21:55] VITALS: BMI 26.0
[2017-09-09] MEDS: Atorvastatin Calcium 40 MG TAB PO SCH (22:09)
[2017-09-09] MEDS: Famotidine 20 MG TAB PO SCH (22:09)
[2017-09-09] MEDS: Nitroglycerin 2% Ointment 1 INCH/1 GM Packet TOP SCH (23:27)
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
[2017-09-10] MEDS: Nitroglycerin 2% Ointment 1 INCH/1 GM Packet TOP SCH ×3 (05:48→17:41)
[2017-09-10] MEDS: Furosemide 40 MG/4 ML VIAL SLOW IVP SCH ×2 (05:48→14:50)
[2017-09-10] MEDS ORDERED: Enoxaparin Sodium 80 MG/0.8 ML SYRINGE SC SCH (06:00)
[2017-09-10 06:46] LABS: Cardiac Risk 4.3 (Less than 4.5)
[2017-09-10] MEDS: Carvedilol 3.125 MG TAB PO SCH ×2 (08:00→17:42)
[2017-09-10] MEDS: Famotidine 20 MG TAB PO SCH ×2 (09:00→20:26)
[2017-09-10] MEDS: Aspirin 325 MG TAB PO SCH (09:00)
[2017-09-10] MEDS ORDERED: Digoxin 0.25 MG TAB PO SCH (09:00)
[2017-09-10] MEDS: Enoxaparin Sodium 80 MG/0.8 ML SYRINGE SC SCH ×2 (09:00→20:27)
[2017-09-10] MEDS: Lisinopril 2.5 MG TAB PO SCH (09:00)
--- NOTE | 2017-09-10 10:40 | PDOC.PN ---
- Subjective Encounter Start Date: 09/10/17 (f/u dyspnea) Encounter Start Time: 10:38 Subjective: Pt reports intermittent difficulty with breathing. States legs -: are less swollen. Denies any chest pain - Objective Vital Signs & Weight: Vital Signs (12 hours) Temp Pulse Resp BP Pulse Ox 09/10/17 08:00 97.8 F 78 16 178/77 H 94 L 09/10/17 03:34 97.7 F 74 18 110/76 92 L Weight Weight 166 lb 6 oz I&O: 09/09/17 09/10/17 09/11/17 06:59 06:59 06:59 Intake Total 240 Output Total 250 Balance -10 EKG Reviewed by me: Yes (sinus 60-90's, 5 beats of NSVT) Phys Exam - Physical Examination Constitutional: NAD Respiratory: no wheezing, no rales, no rhonchi decreased breath sounds at the bases Cardiovascular: RRR, no significant murmur Gastrointestinal: soft, non-tender, no distention, positive bowel sounds Left leg 2+ edema, right leg minimal Neurological: non-focal, moves all 4 limbs Psychiatric: normal affect Skin: no rash Dx/Plan (1) Acute on chronic systolic (congestive) heart failure Code(s): I50.23 - ACUTE ON CHRONIC SYSTOLIC (CONGESTIVE) HEART FAILURE Status : Acute Comment: (2) Dyslipidemia Code(s): E78.5 - HYPERLIPIDEMIA, UNSPECIFIED Status: Chronic Comment: (3) Hypertension Code(s): I10 - ESSENTIAL (PRIMARY) HYPERTENSION Status: Chronic Comment: (4) DVT (deep venous thrombosis) Code(s): I82.409 - ACUTE EMBOLISM AND THOMBOS UNSP DEEP VN UNSP LOWER EXTREMITY Status: Chronic Qualifiers: DVT location: lower extremity Laterality: bilateral - Plan * Decompensated HF with mildly elevated troponin * Cards consult * echo * nitro paste and IV lasix * continue other meds a sordered\ * Hx of DVT * Reviewed US from June and bilateral DVT. Pt is being fully anticoagulated for his heart - uncertain on if he is considered safe(r) for chronic anti- coagulation * Hypertension * On meds * * DVT prophy - fully anticoagulated with lovenox * gi prophy - not indicated * code status - confirmed with patient and full. Pt reports a sister in [place] as his only family. He requests assistance with calling his Office Cleaner - RN to help. * * pt at high risk in current condition. Will place [facility] care consult for support. no questions or further needs at end of eval.
[2017-09-10] MEDS: Atorvastatin Calcium 40 MG TAB PO SCH (20:27)
[2017-09-11] MEDS: Nitroglycerin 2% Ointment 1 INCH/1 GM Packet TOP SCH ×5 (00:45→23:49)
--- NOTE | 2017-09-11 04:46 | CON ---
DATE OF CONSULTATION: 09/10/2017 HISTORY OF PRESENT ILLNESS: Navin Kiser is a 72-year-old black male who underwent bypass surgery here in 1997. He underwent BLISS to the LAD and saphenous vein graft to ramus, obtuse marginal, and the right coronary artery. In 04/2011, he underwent a repeat catheterization and had patent grafts with BLISS to LAD, saphenous vein graft to the obtuse marginal, saphenous vein graft to the right PDA. There is no mention of a ramus graft. He has been hospitalized multiple times with congestive heart failure. Also, apparently has been taken care of by Dr. Sales at the [facility] and had an ICD placed. Mr. Kiser tells me that his ICD was placed here; however, I cannot find any record of that. He was last hospitalized in 06/2017. Echocardiogram revealed an ejection fraction of 10%-15% with severe mitral regurgitation, mild- to-moderate tricuspid regurgitation. Also during that admission, CT angiography showed pulmonary embolism. He had DVT in both popliteal veins and underwent placement of an inferior vena cava filter. He was discharged on various medications; however, on admission now, he is not taking hardly any of those medicines. He now is admitted with increasing peripheral edema. He also states he has been having problems with increasing shortness of breath. He will have chest discomfort, but it is somewhat of a sharp pain that lasts for a second. Troponin I has been elevated and he is admitted for further evaluation. PAST MEDICAL HISTORY: Ischemic cardiomyopathy with ejection fraction of 10%-15 % on last echo, status post defibrillator placement, status post CABG, hypertension, hyperlipidemia, recent pulmonary embolism, noncompliance. OPERATIONS: Bypass surgery, defibrillator placement, and IVC filter placed. SOCIAL HISTORY: Continues to smoke 1 pack per day. He has 5 drinks per day. FAMILY HISTORY: Father had cardiac problems. MEDICATIONS: When he was discharged (he is uncertain what if any medicines he was taking at home) Eliquis 10 mg b.i.d. for 1 week and then 5 mg b.i.d., aspirin 81 daily, Lipitor 40 at bedtime, carvedilol 3.125 b.i.d., digoxin 0.125 daily, Pepcid 20 mg b.i.d., Lasix 40 mg p.o. b.i.d., Imdur 30 daily, lisinopril 2.5 daily, Aldactone 25 daily, multivitamin daily. ALLERGIES: None. REVIEW OF SYSTEMS: A 10-point review of systems, otherwise unremarkable. PHYSICAL EXAMINATION: VITAL SIGNS: Blood pressure 147/75, pulse of 71. HEENT: PERRL. NECK: Supple. CHEST: Clear. CARDIOVASCULAR: S1, S2 normal without any S3, S4 or murmurs. ABDOMEN: Normal bowel sounds without tenderness, organomegaly. EXTREMITIES: Revealed 2+ pretibial edema. NEUROLOGIC: Grossly intact. SKIN: Warm and dry. LABORATORY DATA: Chest x-ray revealed increased pulmonary vascularity, cardiomegaly and a right-sided dual chamber defibrillator. EKG reveals left atrial enlargement, lateral T-wave inversion. CBC is unremarkable. INR 1.6. Sodium 135, potassium 4.3, chloride 106, carbon dioxide 17, BUN 19, creatinine 0.33. BNP 2665.0. Cholesterol 133, triglycerides 72, HDL 31, LDL 88. Troponin I 0.414. Liver function tests are normal. IMPRESSION: 1. Probable demand ischemia from congestive heart failure. He has not had any symptoms compatible with myocardial infarction or acute coronary syndrome. 2. Acute on chronic systolic heart failure. 3. Severe ischemic cardiomyopathy with last ejection fraction of 10%-15%. 4. Noncompliance with medications. He is very difficult to know exactly what he was taking at home. 5. History of bilateral deep vein thrombosis and pulmonary embolism in 2017. IVC filter was placed. Probably, he has been noncompliant with the Eliquis. 6. Hypertension. 7. Hyperlipidemia. 8. Patient continues to smoke. 9. Five drinks per day. 10. Status post CABG. PLAN: Mr. Kiser certainly presents a very difficult situation with his homeless status as well as noncompliance with medications. We will be gradually restarted the medications that he was on at the time of discharge. JEFFERY
[2017-09-11] MEDS: Furosemide 40 MG/4 ML VIAL SLOW IVP SCH ×2 (05:32→14:33)
[2017-09-11] MEDS: Carvedilol 3.125 MG TAB PO SCH ×2 (08:34→17:15)
[2017-09-11] MEDS: Lisinopril 2.5 MG TAB PO SCH (08:34)
[2017-09-11] MEDS: Famotidine 20 MG TAB PO SCH ×2 (08:34→20:52)
[2017-09-11] MEDS: Aspirin 325 MG TAB PO SCH (08:35)
[2017-09-11] MEDS: Enoxaparin Sodium 80 MG/0.8 ML SYRINGE SC SCH ×2 (08:35→20:53)
[2017-09-11 12:20] LABS: ALT (SGPT) 15 U/L (8-55); AST (SGOT) 17 U/L (5-34); Albumin 3.2 g/dL (3.4-4.8); Alkaline Phosphatase 103 U/L (40-150); Anion Gap 15 mmol/L (10-20); BUN (Urea Nitrogen) 18 mg/dL (8.4-25.7); Bilirubin, Total 2.7 mg/dL (0.2-1.2); Calc. Creatinine Clearance 63 mL/min (70-130); Calcium 8.7 mg/dL (7.8-10.44); Carbon Dioxide 26 mmol/L (23-31); Chloride 101 mmol/L (98-107); Estimated GFR-MDRD 80; Glucose 108 mg/dL (83-110); Potassium 3.5 mmol/L (3.5-5.1); Protein, Total 6.2 g/dL (5.8-8.1); Sodium 138 mmol/L (136-145)
[2017-09-11 12:28] LABS: Band 1 % (5-11); Eosinophils 5 % (0-10); Hemoglobin 13.8 g/dL (14.0-18.0); Lymphocytes 50 % (21-51); MDiff Complete? YES; Mean Corpuscular HGB CONC 32.6 g/dL (32.0-36.0); Mean Corpuscular Hemoglobin 32.1 pg (27.0-31.0); Mean Corpuscular Volume 98.4 fL (78.0-98.0); Mean Platelet Volume 8.4 fL (7.4-10.4); Monocytes 14 % (0-10); Neutrophil 27 % (42-75); Platelet Count 156 thou/uL (130-400); RBC Morphology Normal; Reactive Lymphocytes 2 % (0-10); Red Blood Cell (RBC) Count 4.29 mill/uL (4.70-6.10); White Blood Cell (WBC) Count 4.6 thou/uL (4.8-10.8)
--- NOTE | 2017-09-11 20:31 | PDOC.PN ---
- Subjective Encounter Start Date: 09/11/17 Encounter Start Time: 14:30 Patient seen and examined for CHF. No new complaints. Still SOB on mild exertion. No overnight events - Objective Resuscitation Status: Resuscitation Status FULL:Full Resuscitation MAR Reviewed: Yes Vital Signs & Weight: Vital Signs (12 hours) Temp Pulse Resp BP BP Pulse Ox 09/11/17 17:10 98.1 F 70 18 102/62 93 L 09/11/17 11:30 97.5 F L 70 20 127/82 91 L 09/11/17 08:34 72 Weight Weight 160 lb 8 oz I&O: 09/10/17 09/11/17 09/12/17 06:59 06:59 06:59 Intake Total 240 960 840 Output Total 250 1750 1100 Balance -10 -790 -260 Result Diagrams: 09/11/17 11:47 09/11/17 11:47 EKG Reviewed by me: Yes (Tele SR) Phys Exam - Physical Examination Mild resp distress Neck: supple JVD + Respiratory: no wheezing B/L rhonchi, Bibasilar ralesSome accesory muscle use, Cardiovascular: RRR, no rub Gastrointestinal: soft, non-tender, no distention, positive bowel sounds Musculoskeletal: pulses present, edema present Neurological: non-focal, normal sensation, moves all 4 limbs Dx/Plan (1) Acute on chronic systolic (congestive) heart failure Code(s): I50.23 - ACUTE ON CHRONIC SYSTOLIC (CONGESTIVE) HEART FAILURE Status : Acute Comment: Abn LFTS prob due to passive hepat congestion (2) Demand ischemia of myocardium Code(s): I24.8 - OTHER FORMS OF ACUTE ISCHEMIC HEART DISEASE Status: Acute (3) Coronary artery disease Code(s): I25.10 - ATHSCL HEART DISEASE OF [place] CORONARY ARTERY W/O ANG PCTRS Status: Chronic Comment: (4) Hypertension Code(s): I10 - ESSENTIAL (PRIMARY) HYPERTENSION Status: Chronic Comment: (5) History of pulmonary embolism Code(s): Z86.711 - PERSONAL HISTORY OF PULMONARY EMBOLISM Status: Chronic - Plan DVT proph w/SCDs Cont diuretics, -: On Lovenox due to recent PE/DVT, Also has IVC filter -: AM labs -: Cont current meds as below -: Cont BB and ACEI Review of Systems - Review of Systems Constitutional: negative: fever, chills, sweats, weakness, malaise, other Gastrointestinal: negative: Nausea, Vomiting, Abdominal Pain, Diarrhea, Constipation, Melena, Hematochezia, Other - Medications/Allergies Allergies/Adverse Reactions: Allergies Allergy/AdvReac Type Severity Reaction Status Date / Time No Known Allergies Allergy Verified 04/16/17 01:56 Medications: Current Medications Aspirin (Aspirin) 325 mg PO DAILY [facility] Last Admin: 09/11/17 08:35 Dose: 325 mg Atorvastatin Calcium (Lipitor) 40 mg PO HS [facility] Last Admin: 09/10/17 20:27 Dose: 40 mg Carvedilol (Coreg) 3.125 mg PO BID-WM [facility] Last Admin: 09/11/17 17:15 Dose: 3.125 mg Enoxaparin Sodium (Lovenox) 80 mg SC 0900,2100 [facility] Last Admin: 09/11/17 08:35 Dose: 80 mg Famotidine (Pepcid) 20 mg PO BID [facility] Last Admin: 09/11/17 08:34 Dose: 20 mg Furosemide (Lasix) 40 mg SLOW IVP 0600,1400 [facility] Last Admin: 09/11/17 14:33 Dose: 40 mg Isosorbide Mononitrate (Imdur Er) 30 mg PO DAILY [facility] Last Admin: 09/11/17 08:34 Dose: 30 mg Lisinopril (Zestril) 2.5 mg PO DAILY [facility] Last Admin: 09/11/17 08:34 Dose: 2.5 mg Nitroglycerin (Nitrostat) 0.4 mg SL Q5MIN PRN PRN Reason: Chest Pain Nitroglycerin (Nitro-Bid 2% Ointment) 1 inch TOP Q6HR [facility] Last Admin: 09/11/17 17:15 Dose: 1 inch
[2017-09-11] MEDS: Atorvastatin Calcium 40 MG TAB PO SCH (20:52)
[2017-09-12] MEDS: Furosemide 40 MG/4 ML VIAL SLOW IVP SCH ×2 (06:06→14:21)
[2017-09-12] MEDS: Nitroglycerin 2% Ointment 1 INCH/1 GM Packet TOP SCH (06:06)
[2017-09-12] MEDS ORDERED: Potassium Chloride 20 MEQ TAB PO SCH (08:30)
[2017-09-12] MEDS: Aspirin 325 MG TAB PO SCH (09:50)
[2017-09-12] MEDS: Famotidine 20 MG TAB PO SCH ×2 (09:50→20:41)
[2017-09-12] MEDS: Lisinopril 2.5 MG TAB PO SCH (09:50)
[2017-09-12] MEDS: Enoxaparin Sodium 80 MG/0.8 ML SYRINGE SC SCH ×2 (09:50→20:43)
[2017-09-12] MEDS: Carvedilol 3.125 MG TAB PO SCH ×3 (09:51→20:42)
[2017-09-12 10:13] LABS: ALT (SGPT) 13 U/L (8-55); AST (SGOT) 17 U/L (5-34); Albumin 3.2 g/dL (3.4-4.8); Alkaline Phosphatase 96 U/L (40-150); Anion Gap 14 mmol/L (10-20); BUN (Urea Nitrogen) 19 mg/dL (8.4-25.7); Calc. Creatinine Clearance 60 mL/min (70-130); Calcium 8.7 mg/dL (7.8-10.44); Carbon Dioxide 28 mmol/L (23-31); Chloride 101 mmol/L (98-107); Estimated GFR-MDRD 77; Globulin 3.2 g/dL (2.4-3.5); Glucose 122 mg/dL (83-110); Magnesium 1.6 mg/dL (1.6-2.6); Phosphorus 3.6 mg/dL (2.3-4.7); Potassium 3.5 mmol/L (3.5-5.1); Protein, Total 6.4 g/dL (5.8-8.1); Sodium 139 mmol/L (136-145)
--- NOTE | 2017-09-12 11:21 | PDOC.CTH ---
<Yareli Muller - Last Filed: 09/12/17 11:19> Cardiology Progress Note - Subjective No complaints. Still SOB, but better. No CP. Had few short runs NSVT. - Objective Vital Signs Temp Pulse Resp BP BP BP Pulse Ox 09/12/17 09:50 87 134/89 09/12/17 07:32 96.1 F L 87 18 134/89 09/12/17 03:38 97.3 F L 75 18 108/52 L 97 Weight 156 lb 9 oz 09/11/17 09/12/17 09/13/17 06:59 06:59 06:59 Intake Total 960 1140 Output Total 1750 1450 Balance -790 -310 - Physical Examination General/Neuro: alert & oriented x3 Neck: no JVD present Lungs: CTA Heart: RRR Abdomen: NT/ND Extremities: other: (+1 edema bilaterally) - Telemetry Telemetry Rhythm: SR; NSVT - Labs Result Diagrams: 09/11/17 11:47 09/12/17 09:39 Troponin/CKMB Troponin I 0.380 ng/mL (< 0.028) H* 09/09/17 20:41 - Assessment/Plan 1. Acute on chronic systolic CHF. 2. Severe ICMO - EF 10-15% 3. CAD 4. NSVT 5. s/p dual ICD 6. History of DVT s/p IVC filter 7. Noncompliance Continue diuresis. Stop nitropaste and increase Coreg as tolerated. Continue IV lasix maybe one more day and transition to po. <Law Simons - Last Filed: 09/12/17 15:39> Cardiology Progress Note - Objective Vital Signs Temp Pulse Resp BP BP BP 09/12/17 14:20 83 127/87 09/12/17 12:24 91 20 148/104 H 09/12/17 09:50 87 134/89 09/12/17 07:32 96.1 F L 87 18 134/89 Weight 156 lb 9 oz 18 18 09/13/17 06:59 06:59 06:59 Intake Total 960 1140 Output Total 1750 1450 Balance -790 -310 - Labs Result Diagrams: 09/11/17 11:47 09/12/17 09:39 Troponin/CKMB Troponin I 0.380 ng/mL (< 0.028) H* 09/09/17 20:41 - Assessment/Plan Pt seen and examined. Difficult situation given lack of medicaltion compliance and resources. No need to proceed with a stress test or angio given no changes in management despite provided more information given the compliance issue. Agree with changes in medications. Placement?
--- NOTE | 2017-09-12 11:23 | PDOC.PN ---
- Subjective Encounter Start Date: 09/12/17 Encounter Start Time: 11:28 patient seen and examined. Admitted for CHF. He has EF 10-15% and Ischemic Cardiomyopathy. Diuresing well and doesnt have any complaints. Had some beats of NSVT overnight. - Objective Resuscitation Status: Resuscitation Status FULL:Full Resuscitation Vital Signs & Weight: Vital Signs (12 hours) Temp Pulse Resp BP BP BP Pulse Ox 09/12/17 09:50 87 134/89 09/12/17 07:32 96.1 F L 87 18 134/89 09/12/17 03:38 97.3 F L 75 18 108/52 L 97 Weight Weight 156 lb 9 oz I&O: 09/11/17 09/12/17 09/13/17 06:59 06:59 06:59 Intake Total 960 1140 Output Total 1750 1450 Balance -790 -310 Result Diagrams: 09/11/17 11:47 09/12/17 09:39 Phys Exam - Physical Examination Constitutional: NAD HEENT: moist MMs, sclera anicteric Neck: no JVD, supple, full ROM Respiratory: no wheezing, no rales, no rhonchi Mild crackles lower lung bases Cardiovascular: RRR, no significant murmur, no rub Gastrointestinal: soft, non-tender, no distention, positive bowel sounds Musculoskeletal: pulses present, edema present Neurological: non-focal, moves all 4 limbs Psychiatric: normal affect, A&O x 3 Skin: no rash, normal turgor Dx/Plan (1) Acute on chronic systolic (congestive) heart failure Code(s): I50.23 - ACUTE ON CHRONIC SYSTOLIC (CONGESTIVE) HEART FAILURE Status : Acute Comment: Improving w diuresis. Has Ischemic cardiomyopathy with EF 10- 15%. (2) History of pulmonary embolism Code(s): Z86.711 - PERSONAL HISTORY OF PULMONARY EMBOLISM Status: Chronic Comment: Placed on Eliquis 5 mg BID on discharge in [facility]. Will likely be discharged on that. (3) DVT, bilateral lower limbs Code(s): I82.403 - ACUTE EMBOLISM AND THOMBOS UNSP DEEP VEINS OF LOW EXTRM, BI Status: Acute Qualifiers: Affected thrombotic vein of extremity: popliteal Chronicity: acute Qualified Code(s): I82.433 - Acute embolism and thrombosis of popliteal vein, bilateral (4) Coronary artery disease Code(s): I25.10 - ATHSCL HEART DISEASE OF [place] CORONARY ARTERY W/O ANG PCTRS Status: Chronic Comment: (5) Dyslipidemia Code(s): E78.5 - HYPERLIPIDEMIA, UNSPECIFIED Status: Chronic Comment: (6) Hypertension Code(s): I10 - ESSENTIAL (PRIMARY) HYPERTENSION Status: Chronic Qualifiers: Hypertension type: essential hypertension Qualified Code(s): I10 - Essential (primary) hypertension Comment: (7) Elevated troponin I level Code(s): R74.8 - ABNORMAL LEVELS OF OTHER SERUM ENZYMES Status: Acute Comment: likely demand ischemia. (8) NSVT (nonsustained ventricular tachycardia) Code(s): I47.2 - VENTRICULAR TACHYCARDIA Status: Acute - Plan cont current plan of care, out of bed/ambulate, DVT proph w/lovenox Continue diuresis Monitor I/O Likely discharge tomorrow. Review of Systems - Medications/Allergies Allergies/Adverse Reactions: Allergies Allergy/AdvReac Type Severity Reaction Status Date / Time No Known Allergies Allergy Verified 04/16/17 01:56 Medications: Current Medications Aspirin (Aspirin) 325 mg PO DAILY [facility] Last Admin: 09/12/17 09:50 Dose: 325 mg Atorvastatin Calcium (Lipitor) 40 mg PO HS [facility] Last Admin: 09/11/17 20:52 Dose: 40 mg Carvedilol (Coreg) 3.125 mg PO BID-WM [facility] Last Admin: 09/12/17 09:51 Dose: 3.125 mg Enoxaparin Sodium (Lovenox) 80 mg SC 0900,2100 [facility] Last Admin: 09/12/17 09:50 Dose: 80 mg Famotidine (Pepcid) 20 mg PO BID [facility] Last Admin: 09/12/17 09:50 Dose: 20 mg Furosemide (Lasix) 40 mg SLOW IVP 0600,1400 [facility] Last Admin: 09/12/17 06:06 Dose: 40 mg Isosorbide Mononitrate (Imdur Er) 30 mg PO DAILY [facility] Last Admin: 09/12/17 09:50 Dose: 30 mg Lisinopril (Zestril) 2.5 mg PO DAILY [facility] Last Admin: 09/12/17 09:50 Dose: 2.5 mg Nitroglycerin (Nitrostat) 0.4 mg SL Q5MIN PRN PRN Reason: Chest Pain Nitroglycerin (Nitro-Bid 2% Ointment) 1 inch TOP Q6HR [facility] Last Admin: 09/12/17 06:06 Dose: 1 inch Potassium Chloride (K-Dur) 20 meq PO QAM-WM [facility] Sodium Chloride (Flush - Normal Saline) 10 ml IVF Q12HR [facility] Sodium Chloride (Flush - Normal Saline) 10 ml IVF PRN PRN PRN Reason: Saline Flush
[2017-09-12] MEDS: Atorvastatin Calcium 40 MG TAB PO SCH (20:42)
[2017-09-13] MEDS: Furosemide 40 MG/4 ML VIAL SLOW IVP SCH (05:41)
[2017-09-13 05:57] LABS: Anion Gap 13 mmol/L (10-20); BUN (Urea Nitrogen) 21 mg/dL (8.4-25.7); Calc. Creatinine Clearance 65 mL/min (70-130); Calcium 8.5 mg/dL (7.8-10.44); Carbon Dioxide 26 mmol/L (23-31); Chloride 101 mmol/L (98-107); Estimated GFR-MDRD 83; Glucose 83 mg/dL (83-110); Potassium 3.9 mmol/L (3.5-5.1); Sodium 136 mmol/L (136-145)
[2017-09-13 06:53] LABS: Eosinophils 1 % (0-10); Hemoglobin 13.4 g/dL (14.0-18.0); Lymphocytes 64 % (21-51); MDiff Complete? YES; Mean Corpuscular Hemoglobin 32.1 pg (27.0-31.0); Mean Corpuscular Volume 97.4 fL (78.0-98.0); Mean Platelet Volume 8.3 fL (7.4-10.4); Monocytes 8 % (0-10); Neutrophil 26 % (42-75); Platelet Count 163 thou/uL (130-400); RBC Distribution Width 15.1 % (11.5-14.5); Red Blood Cell (RBC) Count 4.18 mill/uL (4.70-6.10)
[2017-09-13] MEDS: Famotidine 20 MG TAB PO SCH ×2 (09:57→20:41)
[2017-09-13] MEDS: Aspirin 325 MG TAB PO SCH (09:57)
[2017-09-13] MEDS: Enoxaparin Sodium 80 MG/0.8 ML SYRINGE SC SCH (09:57)
[2017-09-13] MEDS: Potassium Chloride 20 MEQ TAB PO SCH (09:58)
[2017-09-13] MEDS: Carvedilol 3.125 MG TAB PO SCH ×3 (09:58→20:41)
[2017-09-13] MEDS: Lisinopril 2.5 MG TAB PO SCH (09:58)
--- NOTE | 2017-09-13 12:29 | PDOC.CTH ---
Cardiology Progress Note - Subjective No complaints. Wants to go home. - Objective Vital Signs Temp Pulse Resp BP BP Pulse Ox 09/13/17 12:05 61 16 123/82 99 09/13/17 08:00 97.5 F L 75 18 105/70 98 09/13/17 03:40 97.7 F 73 18 97 Weight 159 lb 3 oz 09/12/17 09/13/17 09/14/17 06:59 06:59 06:59 Intake Total 1140 679 Output Total 1450 Balance -310 679 - Physical Examination General/Neuro: alert & oriented x3 Neck: no JVD present Lungs: CTA Heart: RRR Abdomen: NT/ND Extremities: other: (trace edema) - Labs Result Diagrams: 09/13/17 04:34 09/13/17 04:34 Troponin/CKMB Troponin I 0.380 ng/mL (< 0.028) H* 09/09/17 20:41 - Assessment/Plan 1. Acute on chronic systolic CHF - stop IV lasix. Change to po 2. Severe ICMO - EF 10-15% 3. CAD 4. NSVT 5. s/p dual ICD 6. History of DVT s/p IVC filter - no Eliquis given history of noncompliance. 7. Noncompliance Stable. Ok for discharge once placement/social arrangements made. High risk of readmission due to noncompliance with medications.
--- NOTE | 2017-09-13 13:01 | PDOC.PN ---
- Subjective Encounter Start Date: 09/13/17 Encounter Start Time: 13:01 Seen and examined. Admitted for CHF. He has EF 10-15% and Ischemic Cardiomyopathy. Diuresing well and does not have any complaints. - Objective Resuscitation Status: Resuscitation Status FULL:Full Resuscitation MAR Reviewed: Yes Vital Signs & Weight: Vital Signs (12 hours) Temp Pulse Resp BP BP Pulse Ox 09/13/17 12:05 61 16 123/82 99 09/13/17 08:00 97.5 F L 75 18 105/70 98 09/13/17 03:40 97.7 F 73 18 97 Weight Weight 159 lb 3 oz I&O: 09/12/17 09/13/17 09/14/17 06:59 06:59 06:59 Intake Total 1140 679 Output Total 1450 Balance -310 679 Result Diagrams: 09/13/17 04:34 09/13/17 04:34 Phys Exam - Physical Examination Constitutional: NAD HEENT: moist MMs, sclera anicteric Neck: supple, full ROM Respiratory: no wheezing, no rales, no rhonchi, clear to auscultation bilateral Cardiovascular: RRR, no significant murmur, no rub Gastrointestinal: soft, non-tender, no distention, positive bowel sounds Musculoskeletal: no edema, pulses present Skin: no rash, normal turgor Dx/Plan (1) Acute on chronic systolic (congestive) heart failure Code(s): I50.23 - ACUTE ON CHRONIC SYSTOLIC (CONGESTIVE) HEART FAILURE Status : Acute Comment: Improving w diuresis. Has Ischemic cardiomyopathy with EF 10- 15%. (2) History of pulmonary embolism Code(s): Z86.711 - PERSONAL HISTORY OF PULMONARY EMBOLISM Status: Chronic Comment: Continue Eliquis 5 mg BID. (3) DVT, bilateral lower limbs Code(s): I82.403 - ACUTE EMBOLISM AND THOMBOS UNSP DEEP VEINS OF LOW EXTRM, BI Status: Acute Qualifiers: Affected thrombotic vein of extremity: popliteal Chronicity: acute Qualified Code(s): I82.433 - Acute embolism and thrombosis of popliteal vein, bilateral (4) Coronary artery disease Code(s): I25.10 - ATHSCL HEART DISEASE OF [place] CORONARY ARTERY W/O ANG PCTRS Status: Chronic Comment: (5) Dyslipidemia Code(s): E78.5 - HYPERLIPIDEMIA, UNSPECIFIED Status: Chronic Comment: (6) Hypertension Code(s): I10 - ESSENTIAL (PRIMARY) HYPERTENSION Status: Chronic Qualifiers: Hypertension type: essential hypertension Qualified Code(s): I10 - Essential (primary) hypertension Comment: (7) Elevated troponin I level Code(s): R74.8 - ABNORMAL LEVELS OF OTHER SERUM ENZYMES Status: Acute Comment: likely demand ischemia. (8) NSVT (nonsustained ventricular tachycardia) Code(s): I47.2 - VENTRICULAR TACHYCARDIA Status: Acute - Plan cont current plan of care, social media marketing specialist, out of bed/ambulate, DVT proph w/ lovenox Medically ready for discharge but home situation complicating release from hospital. CM on board and will follow up with them regarding discharge planning. Review of Systems - Medications/Allergies Allergies/Adverse Reactions: Allergies Allergy/AdvReac Type Severity Reaction Status Date / Time No Known Allergies Allergy Verified 04/16/17 01:56 Medications: Current Medications Aspirin (Aspirin) 325 mg PO DAILY [facility] Last Admin: 09/13/17 09:57 Dose: 325 mg Atorvastatin Calcium (Lipitor) 40 mg PO HS [facility] Last Admin: 09/12/17 20:42 Dose: 40 mg Carvedilol (Coreg) 3.125 mg PO TID [facility] Last Admin: 09/13/17 09:58 Dose: 3.125 mg Enoxaparin Sodium (Lovenox) 40 mg SC 0900 [facility] Famotidine (Pepcid) 20 mg PO BID [facility] Last Admin: 09/13/17 09:57 Dose: 20 mg Furosemide (Lasix) 40 mg PO DAILY-AC [facility] Isosorbide Mononitrate (Imdur Er) 30 mg PO DAILY [facility] Last Admin: 09/13/17 09:57 Dose: 30 mg Lisinopril (Zestril) 2.5 mg PO DAILY [facility] Last Admin: 09/13/17 09:58 Dose: 2.5 mg Nitroglycerin (Nitrostat) 0.4 mg SL Q5MIN PRN PRN Reason: Chest Pain Potassium Chloride (K-Dur) 20 meq PO QAM-WM [facility] Last Admin: 09/13/17 09:58 Dose: 20 meq Sodium Chloride (Flush - Normal Saline) 10 ml IVF Q12HR [facility] Last Admin: 09/13/17 09:58 Dose: 10 ml Sodium Chloride (Flush - Normal Saline) 10 ml IVF PRN PRN PRN Reason: Saline Flush
[2017-09-13] MEDS: Atorvastatin Calcium 40 MG TAB PO SCH (20:41)
[2017-09-14 05:23] LABS: Anion Gap 14 mmol/L (10-20); BUN (Urea Nitrogen) 24 mg/dL (8.4-25.7); Calc. Creatinine Clearance 57 mL/min (70-130); Carbon Dioxide 24 mmol/L (23-31); Chloride 102 mmol/L (98-107); Estimated GFR-MDRD 71; Glucose 102 mg/dL (83-110); Sodium 136 mmol/L (136-145)
[2017-09-14 06:14] LABS: Eosinophils 4 % (0-10); Lymphocytes 54 % (21-51); MDiff Complete? YES; Mean Corpuscular HGB CONC 32.2 g/dL (32.0-36.0); Mean Corpuscular Hemoglobin 31.3 pg (27.0-31.0); Mean Corpuscular Volume 97.1 fL (78.0-98.0); Mean Platelet Volume 8.6 fL (7.4-10.4); Monocytes 7 % (0-10); Neutrophil 33 % (42-75); Platelet Count 162 thou/uL (130-400); Reactive Lymphocytes 2 % (0-10); Red Blood Cell (RBC) Count 4.15 mill/uL (4.70-6.10); White Blood Cell (WBC) Count 4.1 thou/uL (4.8-10.8)
[2017-09-14] MEDS ORDERED: Furosemide 40 MG TAB PO SCH (07:30)
[2017-09-14] MEDS: Potassium Chloride 20 MEQ TAB PO SCH (08:08)
[2017-09-14] MEDS: Famotidine 20 MG TAB PO SCH (08:09)
[2017-09-14] MEDS: Carvedilol 3.125 MG TAB PO SCH ×2 (08:09→15:41)
[2017-09-14] MEDS: Aspirin 325 MG TAB PO SCH (08:09)
[2017-09-14] MEDS: Lisinopril 2.5 MG TAB PO SCH (08:09)
[2017-09-14] MEDS ORDERED: Enoxaparin Sodium 40 MG/0.4 ML SYRINGE SC SCH (09:00)
--- NOTE | 2017-09-14 14:39 | DIS ---
DATE OF ADMISSION: 09/09/2017 DATE OF DISCHARGE: 09/14/2017 DISCHARGE DIAGNOES: Acute systolic congestive heart failure, [id number] myocardial infarction, hypertension, hyperlipidemia. HISTORY OF PRESENT ILLNESS/HOSPITAL COURSE: Mr. Navin Kiser is a 72-year-old male with a history of CHF, status post pacemaker placement, hyperlipidemia, and hypertension. [facility] after episodes of gradually worsening exertional shortness of breath with no relief associated wi th bilateral leg edema. He was brought to the emergency room, started on Lasix with marked improveme nt. His troponin was also elevated on arrival and was diagnosed with NSTEMI. Dr. Simons and Dr. Fonseca consulted. The patient was started on therapeutic Lovenox. After further review, the patient seems to have EF of 10%-15% and chronic severe diastolic dysfunction. A decision was made to manage him medically. The patient continues to improve with therapy, and on 09/14/2017, he was deemed stab le for discharge. DISCHARGE MEDICATIONS: Aspirin 325 mg daily, atorvastatin 40 mg at bedtime, carvedilol 3.125 mg 3 ti mes a day, famotidine 20 mg twice a day, isosorbide mononitrate 30 mg daily, lisinopril 2.5 mg daily, nitroglycerin 0.4 mg sublingually every 5 minutes as needed for chest pain, potassium chloride 20 mE q daily, furosemide 40 mg daily. PHYSICAL EXAMINATION: He was examined on the day of discharge. VITAL SIGNS: Blood pressure 134/96, oxygen saturation 98% on room air, pulse rate 79, respiratory ra te 18, temperature 97.1 degrees Fahrenheit. GENERAL: Not in acute distress. He is sleeping comfortably and easily arousable. HEENT: Normocephalic, atraumatic. Not pale, anicteric. NECK: Supple. No JVD. CARDIOVASCULAR: S1 and S2 only. Regular rate and rhythm. No murmurs, rubs, or gallops. RESPIRATORY: Vesicular breath sounds bilaterally. No wheezes, rales, or rhonchi. ABDOMEN: Soft, nontender, nondistended. Bowel sounds normoactive. No hepatosplenomegaly. EXTREMITIES: No edema. SKIN: Warm, dry, well-perfused. No rashes or lesions. PSYCHIATRIC: Normal mood and affect. NEUROLOGIC: Alert and well oriented. No focal deficits. LABORATORY DATA: WBC 4.1, hemoglobin 13, platelets 162. Sodium 136, potassium 4, chloride 102, carb on dioxide 24, anion gap 14, BUN 24, creatinine 1.22, glucose 102, calcium 9. CONSULTATION: Cardiology. IMAGING: Chest x-ray. CONDITION AT DISCHARGE: Stable and improved. PROCEDURES: None. DIET: Heart healthy, low sodium. CARE GOALS: Follow up with his primary care physician within 1 week of discharge. ACTIVITY: To resume as tolerated. Discharge time 65 minutes including chart review and documentation.
[2017-09-14 16:23] VITALS: BP 107/69; TEMP 97.5
--- NOTE | 2017-09-15 12:27 | PQF ---
GISELLE CHEEKARTURO YEBOAH [id number] [facility]-291 [id number] CLINICAL DOCUMENTATION CLARIFICATION FORM: POST DISCHARGE DATE: 09/15/2017 ATTN: Dr. Glynn Please exercise your independent, professional judgment in responding to the clarification form. Clinical indicators are provided on the bottom of this form for your review Please check appropriate box(s): Conflicting documentation was noted in the Medical Record, please clarify if patient is being treated/monitored for: [ ] NSTEMI [ x ] Demand Ischemia [ ] Other diagnosis (please specify) [ ] Unable to determine In addition, please specify: Present on Admission (POA): [x ] Yes [ ] No [ ] Unable to determine For continuity of documentation, please document condition throughout progress notes and discharge summary. Thank You. CLINICAL INDICATORS - SIGNS / SYMPTOMS/ LABS Per discharge summary: NSTEMI. His troponin was also elevated on arrival and was diagnosed with NSTEMI. Per cardiology consult: Probable demand ischemia from congestive heart failure. He has not had any symptoms compatible with myocardial infarction or acute coronary syndrome. Per Hospitalist Progress Notes 09/11- 09/13: Demand ischemia of myocardium. Elevated troponin I level--Comment: Likely demand ischemia. RISK FACTORS (per progress notes) Congestive heart failure exacerbation. Ischemic cardiomyopathy. TREATMENT (per progress notes/consultation) IV Lasix for heart failure exacerbation. Cardiology consultation. (This form is maintained as a part of the permanent medical record) 2014 [email or web address]. All Rights Reserved Khadijah [email or web address] [phone] MTDD
== END 2017-09-14 17:05 | disposition home or self-care (01) | DRG 292 ==
LOC: ERS 16:43 → 2NO 18:55
PROVIDERS: ADMIT Emergency Medicine; ATTEND Emergency Medicine
DX: I11.0 Hypertensive heart disease with heart failure (principal); I24.8 Other forms of acute ischemic heart disease; I47.2 Ventricular tachycardia; I50.23 Acute on chronic systolic (congestive) heart failure; E78.5 Hyperlipidemia, unspecified; I25.10 Atherosclerotic heart disease of native coronary artery without angina pectoris; I25.5 Ischemic cardiomyopathy; F17.210 Nicotine dependence, cigarettes, uncomplicated; Z59.0 Homelessness; Z91.14 Patient's other noncompliance with medication regimen; Z86.718 Personal history of other venous thrombosis and embolism; Z86.711 Personal history of pulmonary embolism; Z95.1 Presence of aortocoronary bypass graft; Z95.810 Presence of automatic (implantable) cardiac defibrillator
CPT/HCPCS: 36415; 80048; 80053; 80061; 83735; 84100; 85025; 93005; A4216; J1650; J1940

== ENCOUNTER 2017-09-30 17:13 | Inpatient (IN) | payer MEDICARE ==
[2017-09-30 19:39] LABS: Troponin I 0.072 ng/mL (< 0.028)
[2017-09-30] MEDS ORDERED: Acetaminophen 325 MG TAB PO PRN ×2 (21:34→22:45)
[2017-09-30] MEDS ORDERED: Enoxaparin Sodium 80 MG/0.8 ML SYRINGE SC SCH (21:45)
[2017-09-30 22:26] LABS: Troponin I 0.059 ng/mL (< 0.028)
[2017-09-30] MEDS ORDERED: Senokot 8.6 MG TAB PO PRN (22:45)
[2017-09-30] MEDS ORDERED: Guaifenesin DM 100-10/5 ML UDCUP PO PRN (22:45)
[2017-09-30] MEDS ORDERED: Nitroglycerin 0.4 MG TAB (25 Tab Bottle) SL PRN (22:45)
[2017-09-30 23:38] VITALS: BMI 25.4
--- NOTE | 2017-10-01 04:12 | HP ---
REASON FOR ADMISSION: Acute CHF exacerbation with the known ejection fraction of around 10%, chronic DVT, PE with prior filter. HISTORY OF PRESENTING ILLNESS: Please note the patient is a very poor historian and describes that he was getting short of breath with fluid buildup. He is also developing swelling in his lower extremities. He states he ambulates inside the house, but does not quantify. He states he is off his medications for 1 week or so and does not know the reason why. Patient appears to be noncompliant with medications and likely diet as well. He apparently complained of chest pain at [facility] from where he was transferred here. Currently, has no chest pain or palpitation. He has orthopnea and shortness of breath. He has cough with expectoration of clear sputum. PAST MEDICAL AND SURGICAL HISTORY: History of CHF with ejection fraction of around 10%-15%, history of DVT, PE, IVC filter likely has underlying dementia as well, sick sinus syndrome with AICD, CABG, hypertension, dyslipidemia. PERSONAL HISTORY: Per prior records, patient has history of tobacco abuse. Does not abuse drugs or alcohol. He states he stays with a friend. FAMILY HISTORY: Father had cardiac problems. He does not know much about his mother. CURRENT MEDICATIONS: Patient is on aspirin 325 mg p.o. daily, Lipitor 40 mg p.o. at bedtime, Coreg 3.125 mg p.o. 3 times daily, Pepcid 20 mg twice daily, Lasix 40 mg p.o. daily, Imdur extended release 30 mg p.o. daily, lisinopril 2.5 mg p.o. daily, potassium chloride 20 mEq p.o. daily. ALLERGIES: No known drug allergies. CODE STATUS: FULL. REVIEW OF SYSTEMS: The following complete review of systems was negative, unless otherwise mentioned in the HPI or below: Constitutional: Weight loss or gain, ability to conduct usual activities. Skin: Rash, itching. Eyes: Double vision, pain. ENT/Mouth: Nose bleeding, neck stiffness, pain, tenderness. Cardiovascular: Palpitations, dyspnea on exertion, orthopnea. Respiratory: Shortness of breath, wheezing, cough, hemoptysis, fever, or night sweats. Gastrointestinal: Poor appetite, abdominal pain, heartburn, nausea, vomiting, constipation, or diarrhea. Genitourinary: Urgency, frequency, dysuria, nocturia. Musculoskeletal: Pain, swelling. Neurologic/Psychiatric: Anxiety, depression. Allergy/Immunologic: Skin rash, bleeding tendency. PHYSICAL EXAMINATION: GENERAL: Patient is a 72-year-old male who is currently not in any acute distress. VITAL SIGNS: Blood pressure 128/80, pulse 94 per minute, respiratory rate 22 per minute, temperature 99.7 degrees Fahrenheit, saturating 97% on room air. NECK: Supple, no elevated JVD. HEENT: Extraocular muscles intact. Pupils reacting to light. Oral cavity mucous membranes are moist. No exudates or congestion. CARDIOVASCULAR SYSTEM: S1, S2 heard. Regular rhythm. RESPIRATORY SYSTEM: Air entry 1+ bilateral. Scattered rales plus in the infrascapular area. ABDOMEN: Soft, bowel sounds heard. No tenderness, rigidity or guarding. EXTREMITIES: Patient has ecchymosis over the left upper quadrant. He does not know if he fell. Extremities: There is 2+ peripheral edema, no calf tenderness. VASCULAR SYSTEM: Peripheral pulses 1+ bilateral, no ischemic ulcerations or gangrene. CENTRAL NERVOUS SYSTEM: No gross focal deficits noted. Patient is alert and awake, but is not oriented well. PSYCHIATRIC SYSTEM: Patient's mood is euthymic. No hallucinations or delusions. LABORATORY DATA AND X-RAY FINDINGS: White count 4.9, H&H 13 and 43, platelet count 171, MCV is 94 with 62% neutrophils. Sodium 134, serum bicarbonate 19, BUN 25, creatinine 1.0. Serum glucose 124. Total bilirubin 3.2. AST, ALT, and alkaline phosphatase within normal limits. Troponin I is indeterminate peaking up to 0.07. CK-MB 1.9. BNP is 2766, albumin is 3.4. Ultrasound venous Doppler of lower extremities done shows evidence of obstructing DVT involving common femoral, proximal, mid and distal superficial femoral, and popliteal vein on the left side. CT angio chest done shows no evidence of PE. There is extensive coronary artery calcifications, mild left pleural effusion. CLINICAL IMPRESSION AND PLAN: Patient will be admitted to telemetry for acute on chronic congestive heart failure exacerbation with ejection fraction of around 10%. Please note the patient is a very poor historian and is known to be noncompliant with medications and likely diet. He is also not fully oriented and it is unclear if he is able to manage himself at home. He states he lives with a friend. In view of his low ejection fraction, multiple medical issues, patient likely will require placement. We will place him on aspirin, Eliquis, Coreg, and start him back on Eliquis 5 mg twice daily for the deep venous thrombosis and prior history of pulmonary embolism. He will be on Lasix 40 mg IV q.12 hourly for congestive heart failure exacerbation. We will closely monitor his electrolytes. For now, patient's code status is FULL. The patient will likely need palliative care consultation. JEFFERY
[2017-10-01] MEDS: Furosemide 40 MG/4 ML VIAL SLOW IVP SCH ×2 (05:07→14:47)
[2017-10-01 05:56] LABS: Anion Gap 14 mmol/L (10-20); BUN (Urea Nitrogen) 27 mg/dL (8.4-25.7); Calc. Creatinine Clearance 61 mL/min (70-130); Carbon Dioxide 21 mmol/L (23-31); Chloride 104 mmol/L (98-107); Estimated GFR-MDRD 75; Glucose 104 mg/dL (83-110); Potassium 4.1 mmol/L (3.5-5.1); Sodium 135 mmol/L (136-145)
[2017-10-01 06:17] LABS: Band 1 % (5-11); Eosinophils 2 % (0-10); Lymphocytes 24 % (21-51); MDiff Complete? YES; Mean Corpuscular Hemoglobin 31.9 pg (27.0-31.0); Mean Corpuscular Volume 96.5 fL (78.0-98.0); Mean Platelet Volume 8.1 fL (7.4-10.4); Monocytes 6 % (0-10); Neutrophil 66 % (42-75); PLT Morphology Comment Appears Adequate; Platelet Count 166 thou/uL (130-400); RBC Distribution Width 14.5 % (11.5-14.5); Red Blood Cell (RBC) Count 4.38 mill/uL (4.70-6.10); White Blood Cell (WBC) Count 6.3 thou/uL (4.8-10.8)
[2017-10-01] MEDS ORDERED: Sodium Chloride 0.9% 10 ML ONE (08:07)
[2017-10-01] MEDS: Potassium Chloride 20 MEQ TAB PO SCH (09:49)
[2017-10-01] MEDS: Carvedilol 6.25 MG TAB PO SCH ×2 (09:49→21:27)
[2017-10-01] MEDS: Famotidine 20 MG TAB PO SCH ×2 (09:49→21:27)
[2017-10-01] MEDS: Apixaban 5 MG TAB PO SCH ×2 (09:49→21:27)
--- NOTE | 2017-10-01 11:51 | PQF ---
CLINICAL DOCUMENTATION IMPROVEMENT CLARIFICATION FORM: ICD-10 Updated PLEASE DO AN ADDENDUM TO THE PROGRESS NOTE WITH ANY DOCUMENTATION UPDATES OR ADDITIONS AND CARRY THROUGH TO DC SUMMARY. THANK YOU. DATE: 10/01/17 ATTN: DR. EDWARDS Please exercise your independent, professional judgment in responding to the clarification form. Clinical indicators are provided on the bottom of this form for your review Please check appropriate box(s): HEART FAILURE: A. TYPE: [ ] Systolic / HFrEF [ ] Diastolic / HFpEF [ ] Combined Systolic / Diastolic [ ] Other diagnosis [ ] Unable to determine In addition, please specify: Present on Admission (POA): [ ] Yes [ ] No [ ] Unable to determine For continuity of documentation, please document condition throughout progress notes and discharge summary. Thank You. CLINICAL INDICATORS - SIGNS / SYMPTOMS / LABS H&P: "PATIENT WILL BE ADMITTED TO TELEMETRY FOR ACUTE ON CHRONIC CONGESTIVE HEART FAILURE EXACERBATION WITH EJECTION FRACTION OF AROUND 10%" RISKS: CAD HYPERTENSION TREATMENT: IV LASIX COREG TELEMETRY MONITORING (This form is maintained as a part of the permanent medical record) 2014 [employer]. All Rights Reserved [email or web address] [email or web address] Office: [phone] [facility]
[2017-10-01 14:13] LABS: Hemoglobin 14.5 g/dL (14.0-18.0)
[2017-10-01] MEDS: Atorvastatin Calcium 40 MG TAB PO SCH (21:26)
[2017-10-01 22:31] LABS: Hemoglobin 13.9 g/dL (14.0-18.0)
--- NOTE | 2017-10-01 23:28 | PDOC.PN ---
- Subjective Encounter Start Date: 10/01/17 Encounter Start Time: 14:00 Subjective: nsg notes rev, rambo ovn, pt w/o any concerns or questions -: states that he does not want to go to a SNF but will instead go "sit on a -: curb" when he is discharged - Objective Vital Signs & Weight: Vital Signs (12 hours) Temp Pulse Resp BP BP Pulse Ox 10/01/17 21:27 109/74 10/01/17 17:35 86 18 122/90 98 10/01/17 14:45 72 21 H 104/77 100 10/01/17 12:29 97.6 F 73 18 102/69 95 Weight Weight 162 lb 8 oz I&O: 09/30/17 10/01/17 10/02/17 06:59 06:59 06:59 Intake Total 300 960 Output Total 850 1300 Balance -550 -340 Result Diagrams: 10/04/17 05:16 10/06/17 05:27 Phys Exam - Physical Examination Constitutional: NAD HEENT: PERRLA, sclera anicteric does not provide any inspiratory effort Cardiovascular: RRR, no significant murmur, no rub Gastrointestinal: soft, no distention, positive bowel sounds Musculoskeletal: no edema, pulses present Neurological: moves all 4 limbs Psychiatric: A&O x 3 Deviation from normal: flat affect Dx/Plan - Plan * CHF exac * generally poor medical compliance and overall poor prognosis * continue with diuresis * serial BMP hx PE * currently on eliquis * hematuria has resolved, urine in [place] is yellow at this point in time * serial CBC deconditioning * does not actively participate in self care which is the likely etiology of his deconditioning and why he required 2 assist earlier today diet: cardiac low sodium fluid restricted activity: PT - does not actively participate, OT dvt ppx - on full A/C with eliquis pt has significant issues with medical compliance d/w CM - it seems that it may be difficult to get him to agree to a facility; multiple attempts have been made during prior hospitalizations Review of Systems - Medications/Allergies Allergies/Adverse Reactions: Allergies Allergy/AdvReac Type Severity Reaction Status Date / Time No Known Allergies Allergy Verified 09/30/17 23:44 Medications: Current Medications Acetaminophen (Tylenol) 650 mg PO Q4H PRN PRN Reason: Headache/Fever or Pain Apixaban (Eliquis) 5 mg PO BID [facility] Last Admin: 10/05/17 20:30 Dose: 5 mg Aspirin (Aspirin Chewable) 81 mg PO DAILY [facility] Last Admin: 10/05/17 08:46 Dose: 81 mg Atorvastatin Calcium (Lipitor) 40 mg PO HS [facility] Last Admin: 10/05/17 20:30 Dose: 40 mg Carvedilol (Coreg) 6.25 mg PO BID [facility] Last Admin: 10/05/17 20:30 Dose: 6.25 mg Famotidine (Pepcid) 20 mg PO 0900 [facility] Furosemide (Lasix) 40 mg PO 0900,1400 [facility] Last Admin: 10/05/17 13:52 Dose: 40 mg Guaifenesin/Dextromethorphan (Robitussin Dm) 15 ml PO Q4H PRN PRN Reason: Cough Lisinopril (Zestril) 2.5 mg PO DAILY [facility] Last Admin: 10/05/17 08:47 Dose: 2.5 mg Nitroglycerin (Nitrostat) 0.4 mg SL Q5MIN PRN PRN Reason: Chest Pain Potassium Chloride (K-Dur) 20 meq PO DAILY [facility] Last Admin: 10/05/17 08:47 Dose: 20 meq Senna (Senokot) 2 tab PO HSPRN PRN PRN Reason: Constipation
[2017-10-02] MEDS: Furosemide 40 MG/4 ML VIAL SLOW IVP SCH ×2 (05:35→15:14)
[2017-10-02 05:55] LABS: Hemoglobin 13.5 g/dL (14.0-18.0)
[2017-10-02] MEDS: Potassium Chloride 20 MEQ TAB PO SCH (08:10)
[2017-10-02] MEDS: Carvedilol 6.25 MG TAB PO SCH ×2 (08:10→21:31)
[2017-10-02] MEDS: Famotidine 20 MG TAB PO SCH ×2 (08:10→21:30)
[2017-10-02] MEDS: Apixaban 5 MG TAB PO SCH ×2 (08:10→21:30)
[2017-10-02] MEDS: Atorvastatin Calcium 40 MG TAB PO SCH (21:30)
--- NOTE | 2017-10-03 04:50 | PDOC.PN ---
- Subjective Encounter Start Date: 10/02/17 Encounter Start Time: 18:00 Subjective: nsg notes rev, rambo ovn -: pt is awake, watching tv, does not want to discuss his health issues at -: this point in time, only stating that if we want him to go, just tell him - Objective Vital Signs & Weight: Vital Signs (12 hours) Temp Pulse Resp BP BP BP Pulse Ox 10/03/17 04:25 98.0 F 70 18 132/86 98 10/02/17 21:31 144/100 H 10/02/17 20:00 97.7 F 81 16 144/100 H 100 Weight Weight 163 lb 4.8 oz I&O: 10/01/17 10/02/17 10/03/17 06:59 06:59 06:59 Intake Total 300 1200 960 Output Total 850 1750 1150 Balance -550 -550 -190 Result Diagrams: 10/02/17 05:48 10/01/17 05:23 Phys Exam - Physical Examination Constitutional: NAD HEENT: PERRLA, sclera anicteric Respiratory: no wheezing, no rales, no rhonchi, clear to auscultation bilateral dec air mvmt, pt not participating in exam actively Cardiovascular: RRR, no significant murmur, no rub Dx/Plan - Plan * CHF exac * generally poor medical compliance and overall poor prognosis * continue with diuresis * serial BMP hx PE * currently on eliquis * hematuria has resolved, urine in [place] is yellow at this point in time * serial CBC deconditioning * does not actively participate in self care which is the likely etiology of his deconditioning and why he required 2 assist earlier today diet: cardiac low sodium fluid restricted activity: PT, OT dvt ppx - on full A/C with eliquis Review of Systems - Medications/Allergies Allergies/Adverse Reactions: Allergies Allergy/AdvReac Type Severity Reaction Status Date / Time No Known Allergies Allergy Verified 09/30/17 23:44 Medications: Current Medications Acetaminophen (Tylenol) 650 mg PO Q4H PRN PRN Reason: Headache/Fever or Pain Apixaban (Eliquis) 5 mg PO BID [facility] Last Admin: 10/02/17 21:30 Dose: 5 mg Aspirin (Aspirin Chewable) 81 mg PO DAILY [facility] Last Admin: 10/02/17 08:10 Dose: 81 mg Atorvastatin Calcium (Lipitor) 40 mg PO HS [facility] Last Admin: 10/02/17 21:30 Dose: 40 mg Carvedilol (Coreg) 6.25 mg PO BID [facility] Last Admin: 10/02/17 21:31 Dose: 6.25 mg Famotidine (Pepcid) 20 mg PO BID [facility] Last Admin: 10/02/17 21:30 Dose: 20 mg Furosemide (Lasix) 40 mg SLOW IVP 0600,1400 [facility] Last Admin: 10/02/17 15:14 Dose: 40 mg Guaifenesin/Dextromethorphan (Robitussin Dm) 15 ml PO Q4H PRN PRN Reason: Cough Nitroglycerin (Nitrostat) 0.4 mg SL Q5MIN PRN PRN Reason: Chest Pain Potassium Chloride (K-Dur) 20 meq PO DAILY [facility] Last Admin: 10/02/17 08:10 Dose: 20 meq Senna (Senokot) 2 tab PO HSPRN PRN PRN Reason: Constipation
--- NOTE | 2017-10-03 05:06 | PDOC.EVN ---
Event Note - Event Note Event Note: advanced care planning dx: CHF, deconditioning, hx PE, medication non compliance participants: patient, at bedside Summary: Discussed with patient his overall poor prognosis with current CHF status. Explicitly told patient that unfortunately, I would not be surprised if he in the next year. ASked patient if he had any personal resources regarding a more stable home environment as currently his plan is to "sit on the curb" after discharge. 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 I am concerned by the patient's lack of ability to complete teachback, his actually fulll comphension of his medical issues and current acute illness. I also question is comprehension of the gravity and poor prognosis of his current condition. Consulted palliative care team to see if perhaps they are able to re- address these issues with the patient. Greater than 20 minutes spent at bedside with patient discussing the above.
[2017-10-03] MEDS: Furosemide 40 MG/4 ML VIAL SLOW IVP SCH ×2 (06:35→14:34)
[2017-10-03 08:20] LABS: #Basophils 0.1 thou/uL (0.0-0.2); #Eosinphils 0.3 thou/uL (0.0-0.7); #Lymphocytes 2.3 thou/uL (1.20-3.40); #Monocytes 0.6 thou/uL (0.11-0.59); #Neutrophils 2.7 thou/uL (1.40-6.50); %Basophils 1.6 % (0.0-1.0); %Lymphocytes 38.2 % (21.0-51.0); %Monocytes 10.6 % (0.0-10.0); %Neutrophils 44.6 % (42.0-75.0); Hemoglobin 14.6 g/dL (14.0-18.0); Mean Corpuscular HGB CONC 32.5 g/dL (32.0-36.0); Mean Corpuscular Volume 98.5 fL (78.0-98.0); Mean Platelet Volume 8.3 fL (7.4-10.4); Platelet Count 168 thou/uL (130-400); RBC Distribution Width 14.7 % (11.5-14.5); Red Blood Cell (RBC) Count 4.57 mill/uL (4.70-6.10); White Blood Cell (WBC) Count 5.9 thou/uL (4.8-10.8)
[2017-10-03 08:42] LABS: Anion Gap 13 mmol/L (10-20); BUN (Urea Nitrogen) 30 mg/dL (8.4-25.7); Calc. Creatinine Clearance 49 mL/min (70-130); Calcium 9.2 mg/dL (7.8-10.44); Carbon Dioxide 26 mmol/L (23-31); Chloride 99 mmol/L (98-107); Estimated GFR-MDRD 60; Glucose 107 mg/dL (83-110); Potassium 4.2 mmol/L (3.5-5.1); Sodium 134 mmol/L (136-145)
[2017-10-03] MEDS: Carvedilol 6.25 MG TAB PO SCH ×2 (09:39→21:18)
[2017-10-03] MEDS: Apixaban 5 MG TAB PO SCH ×2 (09:39→21:19)
[2017-10-03] MEDS: Famotidine 20 MG TAB PO SCH ×2 (09:40→21:19)
[2017-10-03] MEDS: Potassium Chloride 20 MEQ TAB PO SCH (09:40)
--- NOTE | 2017-10-03 13:09 | PDOC.PN ---
- Subjective Encounter Start Date: 10/03/17 Encounter Start Time: 09:45 -: old records requested/rev Pt seen and examined, chart reviewed in its entirety, this is my first visit with this patient follow up for A on Ch systolic CHF, LE DVT and medical nonadherence. Pt being set up for SNF, left AMA previosuly, dont expect tpo have arranged until thursday No F/C, no N/V/d/C, no CP, no increased. denies acute events All systems reviewed and neg x as per HPI - Objective MAR Reviewed: Yes Vital Signs & Weight: Vital Signs (12 hours) Temp Pulse Resp BP BP BP Pulse Ox 10/03/17 11:12 72 18 128/83 100 10/03/17 09:39 144/100 H 10/03/17 08:00 97.7 F 72 16 133/95 H 97 10/03/17 04:25 98.0 F 70 18 132/86 98 Weight Weight 159 lb I&O: 10/02/17 10/03/17 10/04/17 06:59 06:59 06:59 Intake Total 1200 1180 300 Output Total 1750 1600 Balance -550 -420 300 Result Diagrams: 10/03/17 08:09 10/03/17 08:09 Radiology Reviewed by me: Yes EKG Reviewed by me: Yes Phys Exam - Physical Examination Constitutional: NAD HEENT: PERRLA, moist MMs, sclera anicteric, oral pharynx no lesions Neck: no nodes, no JVD, supple, full ROM Respiratory: no wheezing, no rhonchi fine bibasilar crackles Cardiovascular: no significant murmur, no rub, irregular Gastrointestinal: soft, non-tender, no distention, positive bowel sounds Musculoskeletal: pulses present, edema present Neurological: non-focal, normal sensation, moves all 4 limbs Lymphatic: no nodes Psychiatric: normal affect, A&O x 3 Skin: no rash, normal turgor, cap refill <2 seconds Dx/Plan (1) Acute on chronic systolic (congestive) heart failure Code(s): I50.23 - ACUTE ON CHRONIC SYSTOLIC (CONGESTIVE) HEART FAILURE Status : Acute Comment: Improving w diuresis. Has Ischemic cardiomyopathy with EF 10- 15%. (2) Alcohol abuse Code(s): F10.10 - ALCOHOL ABUSE, UNCOMPLICATED Status: Chronic (3) Coronary artery disease Code(s): I25.10 - ATHSCL HEART DISEASE OF [place] CORONARY ARTERY W/O ANG PCTRS Status: Chronic Comment: (4) DVT, bilateral lower limbs Code(s): I82.403 - ACUTE EMBOLISM AND THOMBOS UNSP DEEP VEINS OF LOW EXTRM, BI Status: Acute Qualifiers: Affected thrombotic vein of extremity: popliteal Chronicity: acute Qualified Code(s): I82.433 - Acute embolism and thrombosis of popliteal vein, bilateral (5) Dyslipidemia Code(s): E78.5 - HYPERLIPIDEMIA, UNSPECIFIED Status: Chronic Comment: (6) H/O sick sinus syndrome Code(s): Z86.79 - PERSONAL HISTORY OF OTHER DISEASES OF THE CIRCULATORY SYSTEM Status: Chronic (7) Hypertension Code(s): I10 - ESSENTIAL (PRIMARY) HYPERTENSION Status: Chronic Qualifiers: Hypertension type: essential hypertension Qualified Code(s): I10 - Essential (primary) hypertension Comment: (8) Noncompliance with medication regimen Code(s): Z91.14 - PATIENT'S OTHER NONCOMPLIANCE WITH MEDICATION REGIMEN Status : Chronic Comment: (9) PAD (peripheral artery disease) Code(s): I73.9 - PERIPHERAL VASCULAR DISEASE, UNSPECIFIED Status: Chronic (10) Pulmonary embolism Code(s): I26.99 - OTHER PULMONARY EMBOLISM WITHOUT ACUTE COR PULMONALE Status : Acute Qualifiers: Chronicity: acute (11) S/P IVC filter Status: Acute (12) Severe mitral regurgitation Code(s): I34.0 - NONRHEUMATIC MITRAL (VALVE) INSUFFICIENCY Status: Acute (13) Tobacco abuse Code(s): Z72.0 - TOBACCO USE Status: Chronic - Plan cont current plan of care, PT/OT, social welfare research worker, respiratory therapy, out of bed/ambulate * .
[2017-10-03] MEDS: Atorvastatin Calcium 40 MG TAB PO SCH (21:19)
[2017-10-04 05:39] LABS: #Basophils 0.1 thou/uL (0.0-0.2); #Eosinphils 0.2 thou/uL (0.0-0.7); #Lymphocytes 1.8 thou/uL (1.20-3.40); #Monocytes 0.7 thou/uL (0.11-0.59); #Neutrophils 1.8 thou/uL (1.40-6.50); %Basophils 1.2 % (0.0-1.0); %Eosinophils 3.6 % (0.0-10.0); %Lymphocytes 39.4 % (21.0-51.0); %Monocytes 14.5 % (0.0-10.0); %Neutrophils 41.3 % (42.0-75.0); Hemoglobin 13.6 g/dL (14.0-18.0); Mean Corpuscular HGB CONC 32.1 g/dL (32.0-36.0); Mean Corpuscular Hemoglobin 31.4 pg (27.0-31.0); Mean Corpuscular Volume 97.8 fL (78.0-98.0); Mean Platelet Volume 8.7 fL (7.4-10.4); Platelet Count 172 thou/uL (130-400); RBC Distribution Width 14.8 % (11.5-14.5); Red Blood Cell (RBC) Count 4.35 mill/uL (4.70-6.10); White Blood Cell (WBC) Count 4.5 thou/uL (4.8-10.8)
[2017-10-04] MEDS: Furosemide 40 MG/4 ML VIAL SLOW IVP SCH (05:41)
[2017-10-04 05:44] LABS: Anion Gap 15 mmol/L (10-20); BUN (Urea Nitrogen) 30 mg/dL (8.4-25.7); Calc. Creatinine Clearance 51 mL/min (70-130); Calcium 8.8 mg/dL (7.8-10.44); Carbon Dioxide 19 mmol/L (23-31); Chloride 102 mmol/L (98-107); Estimated GFR-MDRD 63; Glucose 106 mg/dL (83-110); Magnesium 1.6 mg/dL (1.6-2.6); Potassium 4.1 mmol/L (3.5-5.1); Sodium 132 mmol/L (136-145)
[2017-10-04] MEDS ORDERED: Metolazone 5 MG TAB PO SCH (09:00)
[2017-10-04] MEDS ORDERED: Furosemide 20 MG TAB PO SCH (09:00)
[2017-10-04] MEDS: Apixaban 5 MG TAB PO SCH ×2 (09:12→21:58)
[2017-10-04] MEDS: Carvedilol 6.25 MG TAB PO SCH ×2 (09:12→21:58)
[2017-10-04] MEDS: Famotidine 20 MG TAB PO SCH ×2 (09:12→21:58)
[2017-10-04] MEDS: Furosemide 40 MG TAB PO SCH ×2 (09:13→14:02)
[2017-10-04] MEDS: Potassium Chloride 20 MEQ TAB PO SCH (09:13)
--- NOTE | 2017-10-04 13:42 | PDOC.PN ---
- Subjective Encounter Start Date: 10/04/17 Encounter Start Time: 13:40 Subjective: RN report pt anival Mahoney,not following instructions -: seen and examined at bedside.care discussed.Apathy noted -: he "doesn't care anymore".denies any new symptoms - Objective MAR Reviewed: Yes Vital Signs & Weight: Vital Signs (12 hours) Temp Pulse Resp BP BP Pulse Ox 10/04/17 08:00 98.3 F 68 18 123/85 94 L 10/04/17 04:00 97.4 F L 69 20 131/87 99 Weight Weight 158 lb 8 oz I&O: 10/03/17 10/04/17 10/05/17 06:59 06:59 06:59 Intake Total 1180 1400 Output Total 1600 625 Balance -420 775 Result Diagrams: 10/04/17 05:16 10/04/17 05:16 Additional Labs: Laboratory Tests 05/09/15 09/24/15 01/30/17 01:10 17:44 19:26 Creatinine B-Natriuretic Peptide 49.4 146.9 H Troponin I 0.031 H Plasma Alcohol 01/30/17 01/30/17 01/30/17 19:26 19:26 23:01 Creatinine B-Natriuretic Peptide 354.1 H Troponin I 0.049 H Plasma Alcohol 179 01/31/17 10/01/17 10/03/17 01:37 05:23 08:09 Creatinine 1.16 1.40 H B-Natriuretic Peptide Troponin I 0.056 H Plasma Alcohol 10/04/17 05:16 Creatinine 1.36 H B-Natriuretic Peptide Troponin I Plasma Alcohol labs reviewed Phys Exam - Physical Examination Constitutional: NAD HEENT: PERRLA, moist MMs, sclera anicteric, oral pharynx no lesions Neck: no nodes, no JVD, supple, full ROM Respiratory: no wheezing, no rales, no rhonchi, clear to auscultation bilateral Cardiovascular: RRR, no significant murmur Gastrointestinal: soft, non-tender, no distention, positive bowel sounds Musculoskeletal: no edema, pulses present Neurological: non-focal, normal sensation, moves all 4 limbs Psychiatric: normal affect, A&O x 3 Skin: no rash Dx/Plan (1) Acute on chronic systolic (congestive) heart failure Code(s): I50.23 - ACUTE ON CHRONIC SYSTOLIC (CONGESTIVE) HEART FAILURE Status : Acute Comment: Improving w diuresis. Has Ischemic cardiomyopathy with EF 10- 15%. (2) DVT, bilateral lower limbs Code(s): I82.403 - ACUTE EMBOLISM AND THOMBOS UNSP DEEP VEINS OF LOW EXTRM, BI Status: Acute Qualifiers: Affected thrombotic vein of extremity: popliteal Chronicity: acute Qualified Code(s): I82.433 - Acute embolism and thrombosis of popliteal vein, bilateral Comment: IVC filter in place. restarted on Anticoagulation (3) Demand ischemia of myocardium Code(s): I24.8 - OTHER FORMS OF ACUTE ISCHEMIC HEART DISEASE Status: Acute (4) S/P IVC filter Status: Chronic (5) Severe mitral regurgitation Code(s): I34.0 - NONRHEUMATIC MITRAL (VALVE) INSUFFICIENCY Status: Chronic (6) Alcohol abuse Code(s): F10.10 - ALCOHOL ABUSE, UNCOMPLICATED Status: Chronic (7) Coronary artery disease Code(s): I25.10 - ATHSCL HEART DISEASE OF [place] CORONARY ARTERY W/O ANG PCTRS Status: Chronic Comment: (8) Dyslipidemia Code(s): E78.5 - HYPERLIPIDEMIA, UNSPECIFIED Status: Chronic Comment: (9) H/O sick sinus syndrome Code(s): Z86.79 - PERSONAL HISTORY OF OTHER DISEASES OF THE CIRCULATORY SYSTEM Status: Chronic (10) History of pulmonary embolism Code(s): Z86.711 - PERSONAL HISTORY OF PULMONARY EMBOLISM Status: Chronic Comment: Continue Eliquis 5 mg BID. (11) Hypertension Code(s): I10 - ESSENTIAL (PRIMARY) HYPERTENSION Status: Chronic Qualifiers: Hypertension type: essential hypertension Qualified Code(s): I10 - Essential (primary) hypertension Comment: (12) Noncompliance with medication regimen Code(s): Z91.14 - PATIENT'S OTHER NONCOMPLIANCE WITH MEDICATION REGIMEN Status : Chronic Comment: (13) PAD (peripheral artery disease) Code(s): I73.9 - PERIPHERAL VASCULAR DISEASE, UNSPECIFIED Status: Chronic (14) Tobacco abuse Code(s): Z72.0 - TOBACCO USE Status: Chronic (15) Ischemic cardiomyopathy Code(s): I25.5 - ISCHEMIC CARDIOMYOPATHY Status: Chronic Comment: AICD in place - Plan DVT proph w/SCDs Change Lasix to PO.inadequate response w worsening of creatinine -: give 1 dose zaroxolyn & re assess tomorrow.Strict I/Os, -: ADD ACE_I given severe cardiomyopathy -: cont eliquis for Ac DVT.No PE on CTA 09/30/17. -: SNIF on DC. pt unrelable & non compliant * .HD stable. * am labs Review of Systems - Review of Systems Constitutional: negative: fever, chills, sweats, weakness, malaise, other ENT: negative: Ear Pain, Ear Discharge, Nose Pain, Nose Discharge, Nose Congestion, Mouth Pain, Mouth Swelling, Throat Pain, Throat Swelling, Other Respiratory: negative: Cough, Dry, Shortness of Breath, Hemoptysis, SOB with Excertion, Pleuritic Pain, Sputum, Wheezing Cardiovascular: negative: chest pain, palpitations, orthopnea, paroxysmal nocturnal dyspnea, edema, light headedness, other Gastrointestinal: negative: Nausea, Vomiting, Abdominal Pain, Diarrhea, Constipation, Melena, Hematochezia, Other Genitourinary: negative: Dysuria, Frequency, Incontinence, Hematuria, Retention , Other Musculoskeletal: negative: Neck Pain, Shoulder Pain, Arm Pain, Back Pain, Hand Pain, Leg Pain, Foot Pain, Other Skin: negative: Rash, Lesions, Isaiah, Bruising, Other Neurological: negative: Weakness, Numbness, Incoordination, Change in Speech, Confusion, Seizures, Other - Medications/Allergies Allergies/Adverse Reactions: Allergies Allergy/AdvReac Type Severity Reaction Status Date / Time No Known Allergies Allergy Verified 09/30/17 23:44 Medications: Current Medications Acetaminophen (Tylenol) 650 mg PO Q4H PRN PRN Reason: Headache/Fever or Pain Apixaban (Eliquis) 5 mg PO BID [facility] Last Admin: 10/04/17 09:12 Dose: 5 mg Aspirin (Aspirin Chewable) 81 mg PO DAILY [facility] Last Admin: 10/04/17 09:12 Dose: 81 mg Atorvastatin Calcium (Lipitor) 40 mg PO HS [facility] Last Admin: 10/03/17 21:19 Dose: 40 mg Carvedilol (Coreg) 6.25 mg PO BID [facility] Last Admin: 10/04/17 09:12 Dose: 6.25 mg Famotidine (Pepcid) 20 mg PO BID [facility] Last Admin: 10/04/17 09:12 Dose: 20 mg Furosemide (Lasix) 40 mg PO 0900,1400 [facility] Last Admin: 10/04/17 09:13 Dose: 40 mg Guaifenesin/Dextromethorphan (Robitussin Dm) 15 ml PO Q4H PRN PRN Reason: Cough Lisinopril (Zestril) 2.5 mg PO DAILY [facility] Nitroglycerin (Nitrostat) 0.4 mg SL Q5MIN PRN PRN Reason: Chest Pain Potassium Chloride (K-Dur) 20 meq PO DAILY [facility] Last Admin: 10/04/17 09:13 Dose: 20 meq Senna (Senokot) 2 tab PO HSPRN PRN PRN Reason: Constipation
[2017-10-04] MEDS: Atorvastatin Calcium 40 MG TAB PO SCH (21:58)
[2017-10-05 05:54] LABS: Anion Gap 14 mmol/L (10-20); BUN (Urea Nitrogen) 31 mg/dL (8.4-25.7); Calc. Creatinine Clearance 47 mL/min (70-130); Calcium 9.1 mg/dL (7.8-10.44); Carbon Dioxide 25 mmol/L (23-31); Chloride 99 mmol/L (98-107); Estimated GFR-MDRD 60; Glucose 98 mg/dL (83-110); Potassium 3.9 mmol/L (3.5-5.1); Sodium 134 mmol/L (136-145)
[2017-10-05] MEDS: Carvedilol 6.25 MG TAB PO SCH ×2 (08:46→20:30)
[2017-10-05] MEDS: Apixaban 5 MG TAB PO SCH ×2 (08:46→20:30)
[2017-10-05] MEDS: Furosemide 40 MG TAB PO SCH ×2 (08:47→13:52)
[2017-10-05] MEDS: Lisinopril 2.5 MG TAB PO SCH (08:47)
[2017-10-05] MEDS: Famotidine 20 MG TAB PO SCH (08:47)
[2017-10-05] MEDS: Potassium Chloride 20 MEQ TAB PO SCH (08:47)
--- NOTE | 2017-10-05 13:45 | PDOC.PN ---
- Subjective Encounter Start Date: 10/05/17 Encounter Start Time: 13:42 Subjective: not very conversant as yesterday w minimal participation in interview -: winces w light tough all over,when asked about pain-doesn't reply -: RN reported 11 beats of NSVT - Objective MAR Reviewed: Yes Vital Signs & Weight: Vital Signs (12 hours) Temp Pulse Resp BP BP Pulse Ox 10/05/17 11:50 98.2 F 60 16 119/83 99 10/05/17 08:46 112/90 10/05/17 08:00 97.4 F L 70 16 100 10/05/17 07:56 97.4 F L 70 16 129/76 100 10/05/17 04:00 98.2 F 61 18 119/88 98 Weight Weight 153 lb 12.8 oz I&O: 10/04/17 10/05/17 10/06/17 06:59 06:59 06:59 Intake Total 1400 1320 Output Total 625 675 Balance 775 645 Result Diagrams: 10/04/17 05:16 10/05/17 05:04 Additional Labs: labs reviewed Phys Exam - Physical Examination Constitutional: NAD HEENT: PERRLA, moist MMs, sclera anicteric, oral pharynx no lesions Neck: no nodes, no JVD, supple, full ROM Respiratory: no wheezing, no rales, no rhonchi, clear to auscultation bilateral Cardiovascular: RRR, no significant murmur Gastrointestinal: soft, non-tender, no distention, positive bowel sounds Musculoskeletal: pulses present, edema present (b/l LE-improving) Neurological: non-focal, normal sensation, moves all 4 limbs Psychiatric: normal affect, A&O x 3 Skin: no rash Dx/Plan (1) Acute on chronic systolic (congestive) heart failure Code(s): I50.23 - ACUTE ON CHRONIC SYSTOLIC (CONGESTIVE) HEART FAILURE Status : Acute Comment: Improving w diuresis. Has Ischemic cardiomyopathy with EF 10- 15%. (2) DVT, bilateral lower limbs Code(s): I82.403 - ACUTE EMBOLISM AND THOMBOS UNSP DEEP VEINS OF LOW EXTRM, BI Status: Acute Qualifiers: Affected thrombotic vein of extremity: popliteal Chronicity: acute Qualified Code(s): I82.433 - Acute embolism and thrombosis of popliteal vein, bilateral Comment: IVC filter in place. restarted on Anticoagulation (3) Demand ischemia of myocardium Code(s): I24.8 - OTHER FORMS OF ACUTE ISCHEMIC HEART DISEASE Status: Acute (4) S/P IVC filter Status: Chronic (5) Severe mitral regurgitation Code(s): I34.0 - NONRHEUMATIC MITRAL (VALVE) INSUFFICIENCY Status: Chronic (6) Alcohol abuse Code(s): F10.10 - ALCOHOL ABUSE, UNCOMPLICATED Status: Chronic (7) Coronary artery disease Code(s): I25.10 - ATHSCL HEART DISEASE OF [place] CORONARY ARTERY W/O ANG PCTRS Status: Chronic Comment: (8) Dyslipidemia Code(s): E78.5 - HYPERLIPIDEMIA, UNSPECIFIED Status: Chronic Comment: (9) H/O sick sinus syndrome Code(s): Z86.79 - PERSONAL HISTORY OF OTHER DISEASES OF THE CIRCULATORY SYSTEM Status: Chronic (10) History of pulmonary embolism Code(s): Z86.711 - PERSONAL HISTORY OF PULMONARY EMBOLISM Status: Chronic Comment: Continue Eliquis 5 mg BID. (11) Hypertension Code(s): I10 - ESSENTIAL (PRIMARY) HYPERTENSION Status: Chronic Qualifiers: Hypertension type: essential hypertension Qualified Code(s): I10 - Essential (primary) hypertension Comment: (12) Noncompliance with medication regimen Code(s): Z91.14 - PATIENT'S OTHER NONCOMPLIANCE WITH MEDICATION REGIMEN Status : Chronic Comment: (13) PAD (peripheral artery disease) Code(s): I73.9 - PERIPHERAL VASCULAR DISEASE, UNSPECIFIED Status: Chronic (14) Tobacco abuse Code(s): Z72.0 - TOBACCO USE Status: Chronic (15) Ischemic cardiomyopathy Code(s): I25.5 - ISCHEMIC CARDIOMYOPATHY Status: Chronic Comment: AICD in place - Plan PT/OT, social welfare clerk, respiratory therapy, incentive spirometry, out of bed/ ambulate, DVT proph w/SCDs Pt accepted for rehab and sicharged but had 11 beats of NSVT.will hold DC f -: check Mag & replace if low.cont Coreg.asymptomatic -: AICD interrogation requested. -: If re-occurs,will request cardiology recs.stable fo rnow -: cont lasix PO.excellent diuresis w Zaroxolyn.clinically better for CHF * .cont anticoagulation * rest of the meds as started. on BB,ALMA-I,diuretics,ASA. * am labs . * follow closely on tele. Review of Systems - Review of Systems Other: Limited ROS as Pt very resigned and does not answer - Medications/Allergies Allergies/Adverse Reactions: Allergies Allergy/AdvReac Type Severity Reaction Status Date / Time No Known Allergies Allergy Verified 09/30/17 23:44 Medications: Current Medications Acetaminophen (Tylenol) 650 mg PO Q4H PRN PRN Reason: Headache/Fever or Pain Apixaban (Eliquis) 5 mg PO BID [facility] Last Admin: 10/05/17 08:46 Dose: 5 mg Aspirin (Aspirin Chewable) 81 mg PO DAILY [facility] Last Admin: 10/05/17 08:46 Dose: 81 mg Atorvastatin Calcium (Lipitor) 40 mg PO HS [facility] Last Admin: 10/04/17 21:58 Dose: 40 mg Carvedilol (Coreg) 6.25 mg PO BID [facility] Last Admin: 10/05/17 08:46 Dose: 6.25 mg Famotidine (Pepcid) 20 mg PO 0900 [facility] Furosemide (Lasix) 40 mg PO 0900,1400 [facility] Last Admin: 10/05/17 08:47 Dose: 40 mg Guaifenesin/Dextromethorphan (Robitussin Dm) 15 ml PO Q4H PRN PRN Reason: Cough Lisinopril (Zestril) 2.5 mg PO DAILY [facility] Last Admin: 10/05/17 08:47 Dose: 2.5 mg Nitroglycerin (Nitrostat) 0.4 mg SL Q5MIN PRN PRN Reason: Chest Pain Potassium Chloride (K-Dur) 20 meq PO DAILY [facility] Last Admin: 10/05/17 08:47 Dose: 20 meq Senna (Senokot) 2 tab PO HSPRN PRN PRN Reason: Constipation
[2017-10-05] MEDS: Atorvastatin Calcium 40 MG TAB PO SCH (20:30)
[2017-10-06 06:18] LABS: Anion Gap 14 mmol/L (10-20); BUN (Urea Nitrogen) 25 mg/dL (8.4-25.7); Calc. Creatinine Clearance 53 mL/min (70-130); Calcium 9.1 mg/dL (7.8-10.44); Carbon Dioxide 27 mmol/L (23-31); Chloride 97 mmol/L (98-107); Estimated GFR-MDRD 70; Glucose 89 mg/dL (83-110); Potassium 3.6 mmol/L (3.5-5.1); Sodium 134 mmol/L (136-145)
[2017-10-06] MEDS ORDERED: Famotidine 20 MG TAB PO SCH (09:00)
--- NOTE | 2017-10-06 14:56 | PQF ---
CLINICAL DOCUMENTATION IMPROVEMENT CLARIFICATION FORM: ICD-10 Updated PLEASE DO AN ADDENDUM TO THE PROGRESS NOTE WITH ANY DOCUMENTATION UPDATES OR ADDITIONS AND CARRY THROUGH TO DC SUMMARY. THANK YOU. DATE: 10/06/17 ATTN : DR. RECIO Please exercise your independent, professional judgment in responding to the clarification form. Clinical indicators are provided on the bottom of this form for your review Please check appropriate box(s): [ ] Encephalopathy: Type: [ ] Acute [ ] Subacute [ ] Chronic Etiology: [ ] Hypertensive [ ] Metabolic [ ] Toxic [ ] Hepatic with Coma [ ] Hepatic w/o Coma [ ] Hypoxic [ ] Septic [ ] Drug induced: [ ] Unspecified [ ] in the setting of underlying dementia [ ] Other (please specify) [ X ] Transient Alteration of Awareness [ ] Other diagnosis [ ] Unable to determine In addition, please specify: Present on Admission (POA): [X ] Yes [ ] No [ ] Unable to determine For continuity of documentation, please document condition throughout progress notes and discharge summary. Thank You. CLINICAL INDICATORS - SIGNS / SYMPTOMS / LABS H&P 09/30: "UNDERLYING DEMENTIA; ALERT AND AWAKE, BUT IS NOT ORIENTED WELL; NOT FULLY ORIENTED AND IT IS UNCLEAR IF HE IS ABLE TO MANAGE HIMSELF AT HOME." PROGRESS NOTE 10/02: "NOT PARTICIPATING IN EXAM ACTIVELY; DOES NOT ACTIVELY PARTICIPATE IN SELF CARE-REQUIRED X2 ASSIST EARLIER TODAY." PROGRESS NOTE 10/04: "RN REPORTED PATIENT DAGO MEI, NOT FOLLOWING INSTRUCTIONS" PALLIATIVE CARE CONSULT: "PATIENT IS ORIENTED TO SELF AND THAT HE IS 'IN THE HOSPITAL' AND 'I AM NOT CRAZY.' PATIENT UNABLE TO STATE MONTH, DAY, YEAR, OR WHY HE IS IN THE HOSPITAL." RISKS: CHRONIC ALCOHOL ABUSE (ER PROGRESS NTOE 10/03) NONCOMPLIANCE WITH MEDICATION REGIMEN (PER PROGRESS NOTE 10/03) DEMENTIA TREATMENT: OCCUPATIONAL THERAPY CONSULT ASSISTANCE WITH ADLS [employer] GASOLINE LOCOMOTIVE CRANE OPERATOR FOR ASSISTANCE IN PLACEMENT (This form is maintained as a part of the permanent medical record) 2014 [employer]. All Rights Reserved [email or web address] Office: [phone] [facility]
--- NOTE | 2017-10-06 15:03 | PDOC.PN ---
- Subjective Encounter Start Date: 10/06/17 Encounter Start Time: 15:02 Subjective: pt refusing exam,labs, -: wants to sleep and keeps "doesn't care" repeatedly - Objective MAR Reviewed: Yes Vital Signs & Weight: Vital Signs (12 hours) Temp Pulse Resp BP Pulse Ox 10/06/17 03:57 99.4 F 73 20 143/70 H 93 L Weight Weight 149 lb 8 oz I&O: 10/05/17 10/06/17 10/07/17 06:59 06:59 06:59 Intake Total 1320 990 Output Total 675 250 Balance 645 740 Result Diagrams: 10/04/17 05:16 10/06/17 05:27 Phys Exam - Physical Examination Constitutional: NAD HEENT: PERRLA, moist MMs, sclera anicteric, oral pharynx no lesions Neck: no nodes, no JVD, supple, full ROM Respiratory: no wheezing, no rales, no rhonchi Cardiovascular: RRR, no significant murmur Gastrointestinal: soft, non-tender, no distention, positive bowel sounds Musculoskeletal: no edema, pulses present Neurological: non-focal, normal sensation, moves all 4 limbs Skin: no rash, normal turgor, cap refill <2 seconds Dx/Plan (1) Acute on chronic systolic (congestive) heart failure Code(s): I50.23 - ACUTE ON CHRONIC SYSTOLIC (CONGESTIVE) HEART FAILURE Status : Acute Comment: Improving w diuresis. Has Ischemic cardiomyopathy with EF 10- 15%. (2) DVT, bilateral lower limbs Code(s): I82.403 - ACUTE EMBOLISM AND THOMBOS UNSP DEEP VEINS OF LOW EXTRM, BI Status: Acute Qualifiers: Affected thrombotic vein of extremity: popliteal Chronicity: acute Qualified Code(s): I82.433 - Acute embolism and thrombosis of popliteal vein, bilateral Comment: IVC filter in place. restarted on Anticoagulation (3) Demand ischemia of myocardium Code(s): I24.8 - OTHER FORMS OF ACUTE ISCHEMIC HEART DISEASE Status: Acute (4) S/P IVC filter Status: Chronic (5) Severe mitral regurgitation Code(s): I34.0 - NONRHEUMATIC MITRAL (VALVE) INSUFFICIENCY Status: Chronic (6) Alcohol abuse Code(s): F10.10 - ALCOHOL ABUSE, UNCOMPLICATED Status: Chronic (7) Coronary artery disease Code(s): I25.10 - ATHSCL HEART DISEASE OF [place] CORONARY ARTERY W/O ANG PCTRS Status: Chronic Comment: (8) Dyslipidemia Code(s): E78.5 - HYPERLIPIDEMIA, UNSPECIFIED Status: Chronic Comment: (9) H/O sick sinus syndrome Code(s): Z86.79 - PERSONAL HISTORY OF OTHER DISEASES OF THE CIRCULATORY SYSTEM Status: Chronic (10) History of pulmonary embolism Code(s): Z86.711 - PERSONAL HISTORY OF PULMONARY EMBOLISM Status: Chronic Comment: Continue Eliquis 5 mg BID. (11) Hypertension Code(s): I10 - ESSENTIAL (PRIMARY) HYPERTENSION Status: Chronic Qualifiers: Hypertension type: essential hypertension Qualified Code(s): I10 - Essential (primary) hypertension Comment: (12) Noncompliance with medication regimen Code(s): Z91.14 - PATIENT'S OTHER NONCOMPLIANCE WITH MEDICATION REGIMEN Status : Chronic Comment: (13) PAD (peripheral artery disease) Code(s): I73.9 - PERIPHERAL VASCULAR DISEASE, UNSPECIFIED Status: Chronic (14) Tobacco abuse Code(s): Z72.0 - TOBACCO USE Status: Chronic (15) Ischemic cardiomyopathy Code(s): I25.5 - ISCHEMIC CARDIOMYOPATHY Status: Chronic Comment: AICD in place - Plan PT/OT, out of bed/ambulate, DVT proph w/SCDs Will DC to rehab as pt remains non compliant w treatment -: pt refusing to sign rehab papers & will be DCed home if keeps refusing -: another run of asymptomatic SVT.will need to increase coreg but refuses VS -: high risk of re admisison d/t extreme non compliance -: family could not be reached. * . Review of Systems - Review of Systems Constitutional: negative: fever, chills, sweats, weakness, malaise, other Respiratory: negative: Cough, Dry, Shortness of Breath, Hemoptysis, SOB with Excertion, Pleuritic Pain, Sputum, Wheezing Cardiovascular: negative: chest pain, palpitations, orthopnea, paroxysmal nocturnal dyspnea, edema, light headedness, other Gastrointestinal: negative: Nausea, Vomiting, Abdominal Pain, Diarrhea, Constipation, Melena, Hematochezia, Other Genitourinary: negative: Dysuria, Frequency, Incontinence, Hematuria, Retention , Other Musculoskeletal: negative: Neck Pain, Shoulder Pain, Arm Pain, Back Pain, Hand Pain, Leg Pain, Foot Pain, Other Neurological: negative: Weakness, Numbness, Incoordination, Change in Speech, Confusion, Seizures, Other - Medications/Allergies Allergies/Adverse Reactions: Allergies Allergy/AdvReac Type Severity Reaction Status Date / Time No Known Allergies Allergy Verified 09/30/17 23:44 Medications: Current Medications Acetaminophen (Tylenol) 650 mg PO Q4H PRN PRN Reason: Headache/Fever or Pain Apixaban (Eliquis) 5 mg PO BID [facility] Last Admin: 10/05/17 20:30 Dose: 5 mg Aspirin (Aspirin Chewable) 81 mg PO DAILY [facility] Last Admin: 10/05/17 08:46 Dose: 81 mg Atorvastatin Calcium (Lipitor) 40 mg PO HS [facility] Last Admin: 10/05/17 20:30 Dose: 40 mg Carvedilol (Coreg) 6.25 mg PO BID [facility] Last Admin: 10/05/17 20:30 Dose: 6.25 mg Famotidine (Pepcid) 20 mg PO 0900 [facility] Furosemide (Lasix) 40 mg PO 0900,1400 [facility] Last Admin: 10/05/17 13:52 Dose: 40 mg Guaifenesin/Dextromethorphan (Robitussin Dm) 15 ml PO Q4H PRN PRN Reason: Cough Lisinopril (Zestril) 2.5 mg PO DAILY [facility] Last Admin: 10/05/17 08:47 Dose: 2.5 mg Nitroglycerin (Nitrostat) 0.4 mg SL Q5MIN PRN PRN Reason: Chest Pain Potassium Chloride (K-Dur) 20 meq PO DAILY [facility] Last Admin: 10/05/17 08:47 Dose: 20 meq Senna (Senokot) 2 tab PO HSPRN PRN PRN Reason: Constipation
[2017-10-06] MEDS: Carvedilol 6.25 MG TAB PO SCH (16:56)
[2017-10-06] MEDS: Apixaban 5 MG TAB PO SCH (16:56)
[2017-10-06] MEDS: Potassium Chloride 20 MEQ TAB PO SCH (16:57)
[2017-10-06] MEDS: Furosemide 40 MG TAB PO SCH ×2 (16:57)
[2017-10-06] MEDS: Lisinopril 2.5 MG TAB PO SCH (16:58)
[2017-10-06 17:07] VITALS: BP 123/61; TEMP 98.1
--- NOTE | 2017-10-07 19:44 | DIS ---
DATE OF ADMISSION: 09/30/2017 DATE OF DISCHARGE: 10/06/2017 CONDITION AT THE TIME OF DISCHARGE: Stable and improved. DISCHARGE DISPOSITION: [facility]. DISCHARGE DIAGNOSES: 1. Acute on chronic systolic congestive heart failure, stage C. 2. Bilateral lower extremity new deep venous thrombosis. 3. History of deep venous thrombosis and pulmonary embolism with IVC filter placement. 4. Demand ischemia of myocardium. 5. Chronic mitral regurgitation. 6. History of chronic alcohol abuse. 7. Coronary artery disease. 8. Ischemic cardiomyopathy. 9. Status post AICD placement. 10. Dyslipidemia. 11. History of sick sinus syndrome. 12. Hypertension. 13. Extreme medication noncompliance. 14. Peripheral arterial disease. 15. Tobacco abuse. DISCHARGE MEDICATIONS: As follows, Eliquis 5 mg p.o. b.i.d., Tylenol 650 mg every 4 hours p.r.n., as pirin 81 mg daily, Lipitor 40 mg daily, Coreg 6.25 mg p.o. b.i.d., famotidine 200 mg daily, Lasix 40 mg p.o. b.i.d., lisinopril 2.5 mg daily, sublingual nitroglycerin as needed, potassium chloride 20 mE q daily, Senokot as needed. CONSULTATIONS INHOUSE: None. PROCEDURES INHOUSE: None. HISTORY OF PRESENT ILLNESS: Mr. Kiser is a 72-year-old homeless narayan with severe ischemic cardiomyopat hy and history of DVT and PE, who presented to the emergency room somehow with complaints of shortnes s of breath and fluid buildup and lower extremity swelling. He has been off of his medication for an unknown period of time. He has had multiple hospitalizations in the past because of medication nonc ompliance. Anyhow, he presented initially to [facility] and was transferred to her hospital for further evaluation and care. He was hemodynamically stable upon presentation. He did h ave troponin intermediate range of 0.07 with normal CK-MB. BNP was elevated to 2700. Lower extremit y ultrasound was done, which showed findings of new obstructing DVT in the common femoral, proximal, mid and distal superficial femoral and popliteal vein on the left side. CT angio was negative for pu lmonary embolism. He was admitted with a presumptive diagnosis of acute CHF exacerbation and new DVT . He was restarted on his Eliquis and cardiac prudent medications and IV Lasix. Please see admissio n history and physical for further details. HOSPITAL COURSE: The patient had excellent response to the diuretics and his strict I's and O's were done. He has lost about 10 pounds of water weight while in the hospital. His hospitalization was r ather uncomplicated except for the extreme noncompliance, he continued to exhibit even in the hospita l. He would refuse medication. Vital signs and labs were checked from time to time. He did have a couple episodes of nonsustained ventricular tachycardia when he was asymptomatic. His magnesium was checked and his AICD was interrogated, both were normal and in working condition. He is on Coreg, wh ich could be increased, but the patient refused vital sign check for that. At this time, it was a difficult situation because of him being homeless and multiple readmission bec ause of medication noncompliance. Case management was consulted and they somehow able to be manage [facility] for him for the time being. He once again exhibited extreme difficulty to get him there. He would refuse to sign the paperwork despite multiple attempts. Eventually family members w ere located with the help of the caser in and the palliative care team and the papers were signed and he was discharged to rehabilitation. He was seen and examined prior to discharge. Please see hospitalist progress note from the date of d ischarge for full detail including [id number] interaction. He remains very high risk for readmissi on, but please note that this patient does not want to be treated while in the hospital, so readmissi on should be taught in terms of difficulty to treat this patient as well. Total time spent in the discharge of this patient 36 minutes.
== END 2017-10-06 18:48 | DRG 292 ==
LOC: ERS 17:13 → 2NO 21:43 → OBSVTOIN 22:45
PROVIDERS: ADMIT Internal Medicine Infectious Disease; ATTEND Internal Medicine Infectious Disease
DX: I11.0 Hypertensive heart disease with heart failure (principal); I82.512 Chronic embolism and thrombosis of left femoral vein; I82.532 Chronic embolism and thrombosis of left popliteal vein; T44.7X6A Underdosing of beta-adrenoreceptor antagonists, initial encounter; I50.23 Acute on chronic systolic (congestive) heart failure; Z91.138 Patient's unintentional underdosing of medication regimen for other reason; Z87.891 Personal history of nicotine dependence; Y63.6 Underdosing and nonadministration of necessary drug, medicament or biological substance; Z91.11 Patient's noncompliance with dietary regimen; E78.5 Hyperlipidemia, unspecified; F03.90 Unspecified dementia, unspecified severity, without behavioral disturbance, psychotic disturbance, mood disturbance, and anxiety; Z95.1 Presence of aortocoronary bypass graft; Z79.01 Long term (current) use of anticoagulants; I25.10 Atherosclerotic heart disease of native coronary artery without angina pectoris; I25.5 Ischemic cardiomyopathy; F10.10 Alcohol abuse, uncomplicated; I73.9 Peripheral vascular disease, unspecified; I34.0 Nonrheumatic mitral (valve) insufficiency; Z86.711 Personal history of pulmonary embolism; T50.1X6A Underdosing of loop [high-ceiling] diuretics, initial encounter
CPT/HCPCS: 36415; 80048; 83735; 85014; 85018; 85025; 93005; A4216; G8978-GP-CK; G8979-GP-CI; G8987-GO-CL; G8988-GO-CJ; J1940

== ENCOUNTER 2017-11-12 21:11 | Inpatient (IN) | payer MEDICARE ==
[2017-11-12 23:38] LABS: Troponin I 0.032 ng/mL (< 0.028)
[2017-11-13 00:09] VITALS: BMI 25.0
[2017-11-13] MEDS ORDERED: Ondansetron HCl/PF 4 MG/2 ML Vial IVP PRN (00:25)
[2017-11-13] MEDS ORDERED: Ondansetron ODT 4 MG TAB SL PRN (00:25)
[2017-11-13] MEDS ORDERED: Acetaminophen 325 MG TAB PO PRN (00:25)
[2017-11-13 02:40] LABS: Troponin I 0.039 ng/mL (< 0.028)
[2017-11-13] MEDS ORDERED: Senokot 8.6 MG TAB PO PRN (04:46)
[2017-11-13] MEDS ORDERED: Bisacodyl 5 MG TAB PO PRN (04:46)
--- NOTE | 2017-11-13 05:10 | PDOC.EVN ---
Event Note - Event Note Event Note: h&p [id number]
[2017-11-13 05:44] LABS: Troponin I 0.036 ng/mL (< 0.028)
--- NOTE | 2017-11-13 06:39 | HP ---
[facility] PH[facility]: Dr. Brad Galeana. PATIENT'S LARD MIXER: Dr. France. HISTORY OF PRESENT ILLNESS: This is a 72-year-old man with a known history of chronic DVT, PE, CHF with an EF of 10%, who presented with a chief complaint of shortness of breath. He reports having lost his medications over the last 3 days and has not been taking them. Of note, the patient also has a known history of medication noncompliance in the past. He was initially seen in [place] [facility] where a CTA was also noted to be negative. He was transferred to our facility for further evaluation. At the time of my evaluation, the patient states that his breathing is better. Denies any active chest pain. REVIEW OF SYSTEMS: As per HPI. Constitutional: No significant weight loss or gain. Denies any fevers or chills. HEENT: Denies any headaches, dizziness, or vision blurriness. Cardiovascular: Currently denying any chest pain, but earlier did have some dyspnea on exertion with chest pain, particularly with exertion. Patient also endorsed orthopnea and edema. Respiratory: Dyspnea with exertion with cough, nonproductive. No other issues with congestion or recent upper respiratory illness. Gastrointestinal: No nausea, no vomiting, no abdominal pain. No issues with constipation or diarrhea. Genitourinary: No dysuria or changes in urinary frequency, color or quantity or odor. Musculoskeletal: No new myalgias or arthralgias. Remainder of the review of systems otherwise negative. PAST MEDICAL HISTORY: Significant for; 1. CHF with a known EF of 10-15%. 2. History of DVT, PE with an IVC filter in place. 3. Sick sinus syndrome with AICD in place. 4. History of CABG. 5. Hypertension. 6. Hyperlipidemia. HOME MEDICATIONS: Per the EMR, which is currently unconfirmed. The patient's ideal regimen should include, Senokot 2 tabs p.o. at bedtime, potassium chloride 20 mEq p.o. daily, nitroglycerin 0.4 mg sublingual every 5 minutes p.r.n., lisinopril 2.5 mg p.o. daily, guaifenesin 15 mL p.o. q.4 hours p.r.n., Lasix 40 mg p.o. b.i.d., famotidine 20 mg p.o. q.a.m., carvedilol 6.25 mg p.o. b.i.d., atorvastatin 40 mg p.o. at bedtime, aspirin 81 mg p.o. daily, apixaban 5 mg p.o. b.i.d., acetaminophen 650 mg p.o. q.4 hours p.r.n. ALLERGIES: No known drug allergies. SOCIAL HISTORY: The patient has a very poor social condition. Does not have reliable housing. Has a long history of medication noncompliance. Denies active use of illicit drugs, alcohol. The patient currently not endorsing tobacco use, but he does have a prior, recent history of tobacco use per medical records. FAMILY HISTORY: Significant for heart trouble. PHYSICAL EXAMINATION: GENERAL: The patient is awake, conversant, in no acute distress, lying in the hospital bed. HEENT: Normocephalic, atraumatic, slightly dry mucous membranes. Equal ocular motions are intact. CARDIOVASCULAR: S1, S2. No murmurs, rubs, or gallops. Pulses 2+ bilateral upper extremity, 1+ bilateral pitting pedal edema. RESPIRATORY: Reasonable air movement. No conversational dyspnea. No active wheezes, rales, or rhonchi. ABDOMEN: Positive bowel sounds, soft, nontender to palpation. MUSCULOSKELETAL: Moving all 4 extremities. LABORATORY DATA AND IMAGING: All I have available are troponins initial 0.032 followed by 0.039. ASSESSMENT AND PLAN: A 72-year-old male with a known history of CHF, CABG, CAD , who presents with a chief complaint of shortness of breath. 1. Shortness of breath likely secondary to fluid overload from medication noncompliance. The patient has been placed on Lasix 40 mg IV x1 in the ER with subsequent improvement in his respiratory function. He will continue with Lasix p.r.n. and I expect that he will shortly be able to resume his home regimen. He should also be on his home lisinopril, beta olena. 2. Known history of coronary artery disease, currently considered stable. We will need the patient to resume his home regimen. 3. Hyperlipidemia, patient will need to continue his home regimen. 4. Deep venous thrombosis, pulmonary embolism with medication noncompliance. The patient will need to resume his home regimen as well. 5. Diet: Cardiac. 6. Activity: As tolerated. 7. Deep venous thrombosis prophylaxis: Enoxaparin until the patient's home anticoagulation regimen is clarified. Once the patient is back on his anticoagulation regimen, his DVT prophylaxis can be discontinued. 8. Code status was readdressed with the patient wishes to be FULL CODE at this point in time. Unfortunately, the patients longitudinal history of medication noncompliance has created medical issues with poor senior living prognosis. This was reviewed with the patient. JEFFERY
[2017-11-13] MEDS ORDERED: Enoxaparin Sodium 30 MG/0.3 ML SYRINGE SC SCH (09:00)
[2017-11-13] MEDS ORDERED: Furosemide 40 MG/4 ML VIAL SLOW IVP SCH (09:00)
[2017-11-13] MEDS: Docusate 100 MG CAP PO SCH ×2 (09:13→21:03)
[2017-11-13] MEDS ORDERED: Nitroglycerin 0.4 MG TAB (25 Tab Bottle) SL PRN (09:34)
--- NOTE | 2017-11-13 15:40 | PDOC.EVN ---
Event Note - Event Note Event Note: PAtient seen today, Alert and oriented,. He is very depressed and low mood, Not Suicidal, deneis any chest pain, no SOB. He is explained he has Blood clot in lungs and hence causing SOb, But he is showing no expression, he says he is homeless from [place].
[2017-11-13] MEDS: Potassium Chloride 20 MEQ TAB PO SCH (18:30)
[2017-11-13] MEDS: Atorvastatin Calcium 40 MG TAB PO SCH (21:03)
[2017-11-13] MEDS: Carvedilol 6.25 MG TAB PO SCH (21:03)
[2017-11-13] MEDS: Apixaban 5 MG TAB PO SCH (21:03)
[2017-11-13] MEDS: Furosemide 40 MG/4 ML VIAL SLOW IVP SCH (21:04)
--- NOTE | 2017-11-14 02:28 | CON ---
DATE OF CONSULTATION: 11/13/2017 HISTORY: Navin Kiser is a 72-year-old, black male, who underwent bypass surgery here in 1997. There was placement of BLISS to LAD and saphenous vein graft to the ramus, obtuse marginal, and right coronary artery. In 04/2011, he underwent repeat catheterization, had patent grafts with BLISS to the LAD, saphenous vein graft to the obtuse marginal, and saphenous vein graft to the right posterior descending. There was no mention of a ramus graft. He has been hospitalized multiple times with congestive heart failure. Also, at times , he has been taken care of by Dr. Sales at the [facility] and had an ICD placed. Most recent echocardiogram showed an ejection fraction of 10%-15%. In 06/2017, he was found to have pulmonary embolism on CT angiogram as well as DVT in both popliteal veins, underwent placement of an inferior vena cava filter. He was again admitted in 08/2017 with increase in peripheral edema and shortness of breath. He was diuresed. He now is admitted with increased shortness of breath. He states that he has had no medicines for 4-5 days. He denies any significant chest discomfort. He went to [place] ER. CT angiogram was negative. He was transferred here for further care. PAST MEDICAL HISTORY: Ischemic cardiomyopathy with ejection fraction of 10%-15% , status post ICD placement, status post CABG, hypertension, hyperlipidemia, history of pulmonary embolism and noncompliance. OPERATIONS: Bypass surgery, ICD placement, IVC filter placement. MEDICATIONS: Previously at home included Eliquis 5 mg b.i.d., aspirin 81 daily , atorvastatin 40 at bedtime, carvedilol 6.25 b.i.d., famotidine 20 daily, Lasix 40 mg b.i.d., lisinopril 2.5 mg daily, nitroglycerin p.r.n., KCl 20 mEq daily, Senokot. ALLERGIES: None. SOCIAL HISTORY: He continues to smoke 1 pack per day. He has 5 drinks per day. FAMILY HISTORY: Father had cardiac problems. REVIEW OF SYSTEMS: Twelve-point review of systems, otherwise, unremarkable. PHYSICAL EXAMINATION: VITAL SIGNS: Blood pressure 108/70 and pulse 73. HEENT: PERRL. NECK: Supple. CHEST: Clear. CARDIAC EXAMINATION: S1 and S2 are normal without any S3, S4, or murmurs. Carotid upstroke is normal. ABDOMEN: Normal bowel sounds, without tenderness. EXTREMITIES: Reveal 1-2+ pretibial edema. NEUROLOGIC: Grossly intact. SKIN: Warm and dry. LABORATORY DATA AND X-RAY FINDINGS: EKG revealed normal sinus rhythm with nonspecific T-wave changes. Hemoglobin 12.2, hematocrit 37.9, white count 4800 , platelets 182,000. Sodium 134, potassium 4.2, chloride 106, carbon dioxide 18 , BUN 20, creatinine 1.02. Troponin I 0.039. He has chronically elevated troponin I's. CK-MB is normal. IMPRESSION: 1. Noncompliance. 2. Chronically elevated troponin I secondary to demand ischemia from his congestive heart failure. 3. Severe ischemic cardiomyopathy with last ejection fraction of 10%-15%. 4. History of bilateral lower extremity deep venous thrombosis and pulmonary embolism in 06/2017. IVC filter was placed. 5. Hypertension. 6. Hyperlipidemia. 7. Patient continues to smoke. 8. Five drinks per day. 9. History of coronary artery bypass grafting. PLAN: The patient's medications will be restarted. This is continuing to be a very difficult social situation with the patient frequently not taking his medications. MTDD
[2017-11-14 05:17] LABS: INR-International Normal Ratio 1.4; Prothrombin Time 17.5 SEC (12.0-14.7)
[2017-11-14 05:21] LABS: #Basophils 0.1 thou/uL (0.0-0.2); #Eosinphils 0.3 thou/uL (0.0-0.7); #Monocytes 0.6 thou/uL (0.11-0.59); #Neutrophils 1.3 thou/uL (1.40-6.50); %Basophils 1.6 % (0.0-1.0); %Eosinophils 7.7 % (0.0-10.0); %Lymphocytes 45.9 % (21.0-51.0); %Monocytes 13.9 % (0.0-10.0); %Neutrophils 30.9 % (42.0-75.0); Hemoglobin 12.6 g/dL (14.0-18.0); Mean Corpuscular HGB CONC 33.2 g/dL (32.0-36.0); Mean Corpuscular Hemoglobin 31.8 pg (27.0-31.0); Mean Corpuscular Volume 95.9 fL (78.0-98.0); Mean Platelet Volume 7.7 fL (7.4-10.4); Platelet Count 190 thou/uL (130-400); RBC Distribution Width 15.5 % (11.5-14.5); Red Blood Cell (RBC) Count 3.96 mill/uL (4.70-6.10); White Blood Cell (WBC) Count 4.3 thou/uL (4.8-10.8)
[2017-11-14 05:34] LABS: Anion Gap 13 mmol/L (10-20); BUN (Urea Nitrogen) 22 mg/dL (8.4-25.7); Calc. Creatinine Clearance 55 mL/min (70-130); Carbon Dioxide 24 mmol/L (23-31); Chloride 104 mmol/L (98-107); Estimated GFR-MDRD 71; Glucose 128 mg/dL (83-110); Sodium 137 mmol/L (136-145)
[2017-11-14] MEDS: Potassium Chloride 20 MEQ TAB PO SCH ×2 (09:43→16:51)
[2017-11-14] MEDS: Apixaban 5 MG TAB PO SCH ×2 (09:43→20:51)
[2017-11-14] MEDS: Lisinopril 2.5 MG TAB PO SCH (09:43)
[2017-11-14] MEDS: Carvedilol 6.25 MG TAB PO SCH ×2 (09:44→20:51)
[2017-11-14] MEDS: Docusate 100 MG CAP PO SCH ×2 (09:44→20:55)
[2017-11-14] MEDS: Furosemide 40 MG/4 ML VIAL SLOW IVP SCH ×2 (09:44→20:55)
--- NOTE | 2017-11-14 18:06 | PDOC.PN ---
- Subjective Encounter Start Date: 11/14/17 Encounter Start Time: 11:00 Patient is seen today, drowsy and lethargic, not interested in listening to what i was sayoing, reinforced to take meds. - Objective Resuscitation Status: Resuscitation Status FULL:Full Resuscitation MAR Reviewed: Yes Vital Signs & Weight: Vital Signs (12 hours) Temp Pulse Resp BP Pulse Ox 11/14/17 08:00 98.3 F 90 16 99 11/14/17 07:34 98.3 F 90 16 105/63 99 Weight Weight 153 lb 9.6 oz I&O: 11/13/17 11/14/17 11/15/17 06:59 06:59 06:59 Intake Total 240 934 Output Total 500 1050 Balance -260 -116 Result Diagrams: 11/14/17 04:42 11/14/17 04:42 Radiology Reviewed by me: Yes Phys Exam - Physical Examination HEENT: PERRLA, moist MMs Neck: no nodes, no JVD Respiratory: no wheezing, no rales Cardiovascular: RRR, no significant murmur Gastrointestinal: soft, non-tender Musculoskeletal: no edema, pulses present Neurological: non-focal, normal sensation Psychiatric: normal affect, A&O x 3 Skin: no rash, normal turgor Dx/Plan (1) Acute on chronic systolic (congestive) heart failure Code(s): I50.23 - ACUTE ON CHRONIC SYSTOLIC (CONGESTIVE) HEART FAILURE Status : Acute Comment: Improving w diuresis. Has Ischemic cardiomyopathy with EF 10- 15%. Dr. France following, EF is very low. (2) Demand ischemia of myocardium Code(s): I24.8 - OTHER FORMS OF ACUTE ISCHEMIC HEART DISEASE Status: Acute Comment: Stbale, continue On Aspirin/ BB, Atorvastatin. (3) Elevated troponin I level Code(s): R74.8 - ABNORMAL LEVELS OF OTHER SERUM ENZYMES Status: Acute Comment: likely demand ischemia. (4) Coronary artery disease Code(s): I25.10 - ATHSCL HEART DISEASE OF [place] CORONARY ARTERY W/O ANG PCTRS Status: Chronic Comment: Continue with aspirin. (5) DVT (deep venous thrombosis) Code(s): I82.409 - ACUTE EMBOLISM AND THOMBOS UNSP DEEP VN UNSP LOWER EXTREMITY Status: Chronic Qualifiers: DVT location: lower extremity Laterality: bilateral Comment: continue on Eliquis. Pt has IVC filter. (6) Hypertension Code(s): I10 - ESSENTIAL (PRIMARY) HYPERTENSION Status: Chronic Qualifiers: Hypertension type: essential hypertension Qualified Code(s): I10 - Essential (primary) hypertension Comment: continue pt on ACEi/ BB. (7) Ischemic cardiomyopathy Code(s): I25.5 - ISCHEMIC CARDIOMYOPATHY Status: Chronic Comment: AICD in place - Plan cont current plan of care, PT/OT, social service liaison, incentive spirometry, out of bed/ambulate * . Review of Systems - Review of Systems Constitutional: negative: fever, chills, sweats, weakness, malaise, other ENT: negative: Ear Pain, Ear Discharge, Nose Pain, Nose Discharge, Nose Congestion, Mouth Pain, Mouth Swelling, Throat Pain, Throat Swelling, Other Respiratory: negative: Cough, Dry, Shortness of Breath, Hemoptysis, SOB with Excertion, Pleuritic Pain, Sputum, Wheezing Cardiovascular: negative: chest pain, palpitations, orthopnea, paroxysmal nocturnal dyspnea, edema, light headedness, other Gastrointestinal: negative: Nausea, Vomiting, Abdominal Pain, Diarrhea, Constipation, Melena, Hematochezia, Other Genitourinary: negative: Dysuria, Frequency, Incontinence, Hematuria, Retention , Other Musculoskeletal: negative: Neck Pain, Shoulder Pain, Arm Pain, Back Pain, Hand Pain, Leg Pain, Foot Pain, Other Skin: negative: Rash, Lesions, Isaiah, Bruising, Other - Medications/Allergies Allergies/Adverse Reactions: Allergies Allergy/AdvReac Type Severity Reaction Status Date / Time No Known Allergies Allergy Verified 11/13/17 01:23 Medications: Current Medications Apixaban (Eliquis) 5 mg PO BID [facility] Last Admin: 11/14/17 09:43 Dose: 5 mg Aspirin (Aspirin Chewable) 81 mg PO DAILY [facility] Last Admin: 11/14/17 09:43 Dose: 81 mg Atorvastatin Calcium (Lipitor) 40 mg PO HS [facility] Last Admin: 11/13/17 21:03 Dose: 40 mg Bisacodyl (Dulcolax) 10 mg PO DAILYPRN PRN PRN Reason: Constipation Carvedilol (Coreg) 6.25 mg PO BID [facility] Last Admin: 11/14/17 09:44 Dose: 6.25 mg Docusate Sodium (Colace) 100 mg PO BID [facility] Last Admin: 11/14/17 09:44 Dose: Not Given Furosemide (Lasix) 40 mg SLOW IVP BID [facility] Last Admin: 11/14/17 09:44 Dose: 40 mg Lisinopril (Zestril) 2.5 mg PO DAILY [facility] Last Admin: 11/14/17 09:43 Dose: 2.5 mg Nitroglycerin (Nitrostat) 0.4 mg SL Q5MIN PRN PRN Reason: Chest Pain Potassium Chloride (K-Dur) 20 meq PO BID-[facility] Last Admin: 11/14/17 16:51 Dose: 20 meq Senna (Senokot) 2 tab PO HSPRN PRN PRN Reason: Constipation Sodium Chloride (Flush - Normal Saline) 10 ml IVF Q12HR [facility] Last Admin: 11/14/17 09:44 Dose: 10 ml Sodium Chloride (Flush - Normal Saline) 10 ml IVF PRN PRN PRN Reason: Saline Flush
[2017-11-14] MEDS: Atorvastatin Calcium 40 MG TAB PO SCH (20:51)
[2017-11-15 05:18] LABS: #Basophils 0.1 thou/uL (0.0-0.2); #Eosinphils 0.5 thou/uL (0.0-0.7); #Monocytes 0.6 thou/uL (0.11-0.59); #Neutrophils 1.1 thou/uL (1.40-6.50); %Basophils 1.9 % (0.0-1.0); %Eosinophils 11.2 % (0.0-10.0); %Lymphocytes 48.3 % (21.0-51.0); %Monocytes 13.4 % (0.0-10.0); %Neutrophils 25.3 % (42.0-75.0); Hemoglobin 12.3 g/dL (14.0-18.0); Mean Corpuscular HGB CONC 33.7 g/dL (32.0-36.0); Mean Corpuscular Hemoglobin 32.1 pg (27.0-31.0); Mean Corpuscular Volume 95.3 fL (78.0-98.0); Mean Platelet Volume 7.8 fL (7.4-10.4); Platelet Count 196 thou/uL (130-400); RBC Distribution Width 15.5 % (11.5-14.5); Red Blood Cell (RBC) Count 3.84 mill/uL (4.70-6.10); White Blood Cell (WBC) Count 4.2 thou/uL (4.8-10.8)
[2017-11-15 05:22] LABS: INR-International Normal Ratio 1.5; Prothrombin Time 18.1 SEC (12.0-14.7)
[2017-11-15 05:29] LABS: Anion Gap 11 mmol/L (10-20); BUN (Urea Nitrogen) 18 mg/dL (8.4-25.7); Calc. Creatinine Clearance 62 mL/min (70-130); Calcium 8.9 mg/dL (7.8-10.44); Carbon Dioxide 26 mmol/L (23-31); Chloride 103 mmol/L (98-107); Estimated GFR-MDRD 82; Glucose 95 mg/dL (83-110); Potassium 4.2 mmol/L (3.5-5.1); Sodium 136 mmol/L (136-145)
[2017-11-15] MEDS: Potassium Chloride 20 MEQ TAB PO SCH ×2 (09:33→17:18)
[2017-11-15] MEDS: Lisinopril 2.5 MG TAB PO SCH (09:34)
[2017-11-15] MEDS: Apixaban 5 MG TAB PO SCH ×2 (09:34→21:02)
[2017-11-15] MEDS: Furosemide 40 MG/4 ML VIAL SLOW IVP SCH ×2 (09:34→21:03)
[2017-11-15] MEDS: Docusate 100 MG CAP PO SCH ×2 (09:34→21:03)
[2017-11-15] MEDS: Carvedilol 6.25 MG TAB PO SCH ×2 (09:34→21:02)
--- NOTE | 2017-11-15 14:20 | PDOC.PN ---
- Subjective Encounter Start Date: 11/15/17 Encounter Start Time: 10:00 Patient is seen today, alert and otriented. He is saysing feeling better but not able to walk and is very weak. - Objective Resuscitation Status: Resuscitation Status FULL:Full Resuscitation MAR Reviewed: Yes Vital Signs & Weight: Vital Signs (12 hours) Temp Pulse Resp BP Pulse Ox 11/15/17 04:00 98.6 F 72 20 117/68 95 Weight Weight 155 lb 1.6 oz I&O: 11/14/17 11/15/17 11/16/17 06:59 06:59 06:59 Intake Total 934 360 Output Total 1050 600 Balance -116 -240 Result Diagrams: 11/15/17 04:38 11/15/17 04:38 Radiology Reviewed by me: Yes Phys Exam - Physical Examination HEENT: PERRLA, moist MMs Neck: no nodes, no JVD Respiratory: wheezing present Cardiovascular: RRR, no significant murmur Gastrointestinal: soft, non-tender Musculoskeletal: edema present Neurological: non-focal, normal sensation Lymphatic: no nodes Psychiatric: normal affect, A&O x 3 Dx/Plan (1) Acute on chronic systolic (congestive) heart failure Code(s): I50.23 - ACUTE ON CHRONIC SYSTOLIC (CONGESTIVE) HEART FAILURE Status : Acute Comment: Improving w diuresis. Has Ischemic cardiomyopathy with EF 10- 15%. Dr. France following, EF is very low. will continue Diuresis. (2) Demand ischemia of myocardium Code(s): I24.8 - OTHER FORMS OF ACUTE ISCHEMIC HEART DISEASE Status: Acute Comment: Stbale, continue On Aspirin/ BB, Atorvastatin. (3) Elevated troponin I level Code(s): R74.8 - ABNORMAL LEVELS OF OTHER SERUM ENZYMES Status: Acute Comment: likely demand ischemia. (4) Coronary artery disease Code(s): I25.10 - ATHSCL HEART DISEASE OF [place] CORONARY ARTERY W/O ANG PCTRS Status: Chronic Comment: Continue with aspirin. (5) DVT (deep venous thrombosis) Code(s): I82.409 - ACUTE EMBOLISM AND THOMBOS UNSP DEEP VN UNSP LOWER EXTREMITY Status: Chronic Qualifiers: DVT location: lower extremity Laterality: bilateral Comment: continue on Eliquis. Pt has IVC filter. (6) Hypertension Code(s): I10 - ESSENTIAL (PRIMARY) HYPERTENSION Status: Chronic Qualifiers: Hypertension type: essential hypertension Qualified Code(s): I10 - Essential (primary) hypertension Comment: continue pt on ACEi/ BB. (7) Ischemic cardiomyopathy Code(s): I25.5 - ISCHEMIC CARDIOMYOPATHY Status: Chronic Comment: AICD in place - Plan cont current plan of care, PT/OT, social media marketing specialist, respiratory therapy, incentive spirometry, DVT proph w/lovenox Likely D/c home tomorrow. * . Review of Systems - Review of Systems Eyes: negative: Pain, Vision Change, Conjunctivae Inflammation, Eyelid Inflammation, Redness, Other ENT: negative: Ear Pain, Ear Discharge, Nose Pain, Nose Discharge, Nose Congestion, Mouth Pain, Mouth Swelling, Throat Pain, Throat Swelling, Other Respiratory: Cough, Shortness of Breath. negative: Dry, Hemoptysis, SOB with Excertion, Pleuritic Pain, Sputum, Wheezing Cardiovascular: orthopnea, edema. negative: chest pain, palpitations, paroxysmal nocturnal dyspnea, light headedness, other Gastrointestinal: negative: Nausea, Vomiting, Abdominal Pain, Diarrhea, Constipation, Melena, Hematochezia, Other Genitourinary: negative: Dysuria, Frequency, Incontinence, Hematuria, Retention , Other Musculoskeletal: negative: Neck Pain, Shoulder Pain, Arm Pain, Back Pain, Hand Pain, Leg Pain, Foot Pain, Other - Medications/Allergies Allergies/Adverse Reactions: Allergies Allergy/AdvReac Type Severity Reaction Status Date / Time No Known Allergies Allergy Verified 11/13/17 01:23 Medications: Current Medications Apixaban (Eliquis) 5 mg PO BID [facility] Last Admin: 11/15/17 09:34 Dose: 5 mg Aspirin (Aspirin Chewable) 81 mg PO DAILY [facility] Last Admin: 11/15/17 09:34 Dose: 81 mg Atorvastatin Calcium (Lipitor) 40 mg PO HS [facility] Last Admin: 11/14/17 20:51 Dose: 40 mg Bisacodyl (Dulcolax) 10 mg PO DAILYPRN PRN PRN Reason: Constipation Carvedilol (Coreg) 6.25 mg PO BID [facility] Last Admin: 11/15/17 09:34 Dose: 6.25 mg Docusate Sodium (Colace) 100 mg PO BID [facility] Last Admin: 11/15/17 09:34 Dose: 100 mg Furosemide (Lasix) 40 mg SLOW IVP BID [facility] Last Admin: 11/15/17 09:34 Dose: 40 mg Lisinopril (Zestril) 2.5 mg PO DAILY [facility] Last Admin: 11/15/17 09:34 Dose: 2.5 mg Nitroglycerin (Nitrostat) 0.4 mg SL Q5MIN PRN PRN Reason: Chest Pain Potassium Chloride (K-Dur) 20 meq PO BID[facility] Last Admin: 11/15/17 09:33 Dose: 20 meq Senna (Senokot) 2 tab PO HSPRN PRN PRN Reason: Constipation Sodium Chloride (Flush - Normal Saline) 10 ml IVF Q12HR [facility] Last Admin: 11/15/17 09:35 Dose: 10 ml Sodium Chloride (Flush - Normal Saline) 10 ml IVF PRN PRN PRN Reason: Saline Flush
[2017-11-15] MEDS: Atorvastatin Calcium 40 MG TAB PO SCH (21:02)
[2017-11-16 05:26] LABS: #Basophils 0.1 thou/uL (0.0-0.2); #Eosinphils 0.5 thou/uL (0.0-0.7); #Lymphocytes 2.4 thou/uL (1.20-3.40); #Monocytes 0.6 thou/uL (0.11-0.59); #Neutrophils 1.5 thou/uL (1.40-6.50); %Basophils 2.1 % (0.0-1.0); %Eosinophils 10.2 % (0.0-10.0); %Lymphocytes 47.4 % (21.0-51.0); %Monocytes 11.7 % (0.0-10.0); %Neutrophils 28.6 % (42.0-75.0); Hemoglobin 12.9 g/dL (14.0-18.0); Mean Corpuscular HGB CONC 33.1 g/dL (32.0-36.0); Mean Corpuscular Hemoglobin 31.7 pg (27.0-31.0); Mean Corpuscular Volume 95.7 fL (78.0-98.0); Mean Platelet Volume 8.1 fL (7.4-10.4); Platelet Count 204 thou/uL (130-400); RBC Distribution Width 15.6 % (11.5-14.5); Red Blood Cell (RBC) Count 4.07 mill/uL (4.70-6.10); White Blood Cell (WBC) Count 5.1 thou/uL (4.8-10.8)
[2017-11-16 05:27] LABS: INR-International Normal Ratio 1.5
[2017-11-16 05:33] LABS: Anion Gap 14 mmol/L (10-20); BUN (Urea Nitrogen) 24 mg/dL (8.4-25.7); Calc. Creatinine Clearance 52 mL/min (70-130); Calcium 9.5 mg/dL (7.8-10.44); Carbon Dioxide 23 mmol/L (23-31); Chloride 102 mmol/L (98-107); Estimated GFR-MDRD 66; Glucose 96 mg/dL (83-110); Potassium 4.6 mmol/L (3.5-5.1); Sodium 134 mmol/L (136-145)
[2017-11-16] MEDS: Apixaban 5 MG TAB PO SCH ×2 (08:54→21:36)
[2017-11-16] MEDS: Potassium Chloride 20 MEQ TAB PO SCH ×2 (08:54→17:36)
[2017-11-16] MEDS: Lisinopril 2.5 MG TAB PO SCH ×2 (08:54→09:30)
[2017-11-16] MEDS: Docusate 100 MG CAP PO SCH ×3 (08:55→21:36)
[2017-11-16] MEDS: Carvedilol 6.25 MG TAB PO SCH ×3 (08:55→21:36)
[2017-11-16] MEDS: Furosemide 40 MG/4 ML VIAL SLOW IVP SCH ×2 (09:29→21:36)
--- NOTE | 2017-11-16 14:00 | PDOC.CTH ---
Cardiology Progress Note - Subjective No current complaints. Feels better. - Objective Vital Signs Temp Pulse Resp BP BP Pulse Ox 11/16/17 09:30 64 92/65 11/16/17 07:20 98.1 F 64 22 H 103/69 94 L 11/16/17 03:46 98.5 F 101 H 14 97/65 97 Weight 152 lb 11/15/17 11/16/17 11/17/17 06:59 06:59 06:59 Intake Total 360 340 Output Total 600 650 Balance -240 -310 - Physical Examination General/Neuro: alert & oriented x3, NAD Neck: carotid US brisk, no JVD present Lungs: unlabored respirations Heart: PMI normal, RRR Abdomen: no HSM, NT/ND, soft Extremities: + femoral B - Labs Result Diagrams: 11/16/17 04:35 11/16/17 04:35 Troponin/CKMB Troponin I 0.036 ng/mL (< 0.028) H 11/13/17 04:53 - Assessment/Plan 1. Acute on chronis systolic HF 2. Non-compliance 3. CAD s/p CABG Very difficult situation. Pt not taking medications that keeep him out of the hospital. Have recommended conservative treatment in the past d/t non-compliance with meds. Would not benefit from angio or stress test given that it will not change managment Restart meds Would like to have pt fu in office and see if he is complinat
--- NOTE | 2017-11-16 16:02 | EKG ---
Test Reason : Blood Pressure : / mmHG Vent. Rate : 068 BPM Atrial Rate : 068 BPM P-R Int : 172 ms QRS Dur : 110 ms QT Int : 446 ms P-R-T Axes : 062 011 218 degrees QTc Int : 474 ms Normal sinus rhythm Non-specific intra-ventricular conduction delay Marked T-wave abnormality, consider inferolateral ischemia Prolonged QT Abnormal ECG Confirmed by FARA RENTERIA ([id number]) on 11/16/2017 4:01:56 PM Referred By: JERRY Confirmed By:FARA RENTERIA
--- NOTE | 2017-11-16 16:37 | PDOC.PN ---
- Subjective Encounter Start Date: 11/16/17 Encounter Start Time: 16:35 Subjective: says he feels SOB and not taking meds but will take now -: is homeless - Objective Resuscitation Status: Resuscitation Status FULL:Full Resuscitation MAR Reviewed: Yes Vital Signs & Weight: Vital Signs (12 hours) Temp Pulse Resp BP BP Pulse Ox 11/16/17 15:53 97.4 F L 64 20 97/61 100 11/16/17 12:10 97.1 F L 80 18 126/87 95 11/16/17 09:30 64 92/65 11/16/17 07:20 98.1 F 64 22 H 103/69 94 L Weight Weight 152 lb I&O: 11/15/17 11/16/17 11/17/17 06:59 06:59 06:59 Intake Total 360 340 Output Total 600 650 Balance -240 -310 Result Diagrams: 11/16/17 04:35 11/16/17 04:35 Additional Labs: Laboratory Tests 11/12/17 11/15/17 11/16/17 18:15 04:38 04:35 B-Natriuretic Peptide 2286.8 H 1489.2 H 1536.9 H labs reviewed Phys Exam - Physical Examination Constitutional: NAD HEENT: PERRLA, moist MMs, sclera anicteric, TM's clear, oral pharynx no lesions , 2+ tonsils Neck: no nodes, no JVD, supple, full ROM Respiratory: no wheezing, no rales, no rhonchi, clear to auscultation bilateral Cardiovascular: RRR, no significant murmur Gastrointestinal: soft, non-tender, no distention, positive bowel sounds Musculoskeletal: no edema, pulses present Neurological: non-focal, normal sensation, moves all 4 limbs Psychiatric: normal affect, A&O x 3 Skin: no rash Dx/Plan (1) Acute on chronic systolic (congestive) heart failure Code(s): I50.23 - ACUTE ON CHRONIC SYSTOLIC (CONGESTIVE) HEART FAILURE Status : Acute Comment: Improving w diuresis. Has Ischemic cardiomyopathy with EF 10- 15%. Dr. Simons following, EF is very low. will continue Diuresis. (2) Coronary artery disease Code(s): I25.10 - ATHSCL HEART DISEASE OF [place] CORONARY ARTERY W/O ANG PCTRS Status: Chronic Comment: Continue with aspirin. (3) Dyslipidemia Code(s): E78.5 - HYPERLIPIDEMIA, UNSPECIFIED Status: Chronic Comment: (4) H/O sick sinus syndrome Code(s): Z86.79 - PERSONAL HISTORY OF OTHER DISEASES OF THE CIRCULATORY SYSTEM Status: Chronic (5) History of pulmonary embolism Code(s): Z86.711 - PERSONAL HISTORY OF PULMONARY EMBOLISM Status: Chronic Comment: Continue Eliquis 5 mg BID. (6) Hypertension Code(s): I10 - ESSENTIAL (PRIMARY) HYPERTENSION Status: Chronic Qualifiers: Hypertension type: essential hypertension Qualified Code(s): I10 - Essential (primary) hypertension Comment: continue pt on ACEi/ BB. (7) PAD (peripheral artery disease) Code(s): I73.9 - PERIPHERAL VASCULAR DISEASE, UNSPECIFIED Status: Chronic (8) S/P IVC filter Status: Chronic (9) Severe mitral regurgitation Code(s): I34.0 - NONRHEUMATIC MITRAL (VALVE) INSUFFICIENCY Status: Chronic (10) Tobacco abuse Code(s): Z72.0 - TOBACCO USE Status: Chronic (11) H/O deep venous thrombosis Code(s): Z86.718 - PERSONAL HISTORY OF OTHER VENOUS THROMBOSIS AND EMBOLISM Status: Acute Comment: on Anticoagulation (12) Ischemic cardiomyopathy Code(s): I25.5 - ISCHEMIC CARDIOMYOPATHY Status: Chronic Comment: AICD in place (13) Noncompliance with medication regimen Code(s): Z91.14 - PATIENT'S OTHER NONCOMPLIANCE WITH MEDICATION REGIMEN Status : Chronic Comment: - Plan DVT proph w/SCDs cont diuresis. strict I/Os. -: cont ASA,statin,BB,ALMA-I. -: Consult CM for DC planning.Palliative for same.pt homeless -: recurrent admits d/t non compliance -: am labs. hemodynamically stable * . Review of Systems - Review of Systems Constitutional: weakness, malaise. negative: fever, chills, sweats, other ENT: negative: Ear Pain, Ear Discharge, Nose Pain, Nose Discharge, Nose Congestion, Mouth Pain, Mouth Swelling, Throat Pain, Throat Swelling, Other Respiratory: Shortness of Breath. negative: Cough, Dry, Hemoptysis, SOB with Excertion, Pleuritic Pain, Sputum, Wheezing Cardiovascular: orthopnea, paroxysmal nocturnal dyspnea. negative: chest pain, palpitations, edema, light headedness, other Gastrointestinal: negative: Nausea, Vomiting, Abdominal Pain, Diarrhea, Constipation, Melena, Hematochezia, Other Genitourinary: negative: Dysuria, Frequency, Incontinence, Hematuria, Retention , Other Musculoskeletal: negative: Neck Pain, Shoulder Pain, Arm Pain, Back Pain, Hand Pain, Leg Pain, Foot Pain, Other Skin: negative: Rash, Lesions, Isaiah, Bruising, Other Neurological: negative: Weakness, Numbness, Incoordination, Change in Speech, Confusion, Seizures, Other - Medications/Allergies Allergies/Adverse Reactions: Allergies Allergy/AdvReac Type Severity Reaction Status Date / Time No Known Allergies Allergy Verified 11/13/17 01:23 Medications: Current Medications Apixaban (Eliquis) 5 mg PO BID [facility] Last Admin: 11/16/17 08:54 Dose: 5 mg Aspirin (Aspirin Chewable) 81 mg PO DAILY [facility] Last Admin: 11/16/17 09:29 Dose: 81 mg Atorvastatin Calcium (Lipitor) 40 mg PO HS [facility] Last Admin: 11/15/17 21:02 Dose: 40 mg Bisacodyl (Dulcolax) 10 mg PO DAILYPRN PRN PRN Reason: Constipation Carvedilol (Coreg) 6.25 mg PO BID [facility] Last Admin: 11/16/17 09:30 Dose: Not Given Docusate Sodium (Colace) 100 mg PO BID [facility] Last Admin: 11/16/17 09:31 Dose: Not Given Furosemide (Lasix) 40 mg SLOW IVP BID [facility] Last Admin: 11/16/17 09:29 Dose: Not Given Lisinopril (Zestril) 2.5 mg PO DAILY [facility] Last Admin: 11/16/17 09:30 Dose: Not Given Nitroglycerin (Nitrostat) 0.4 mg SL Q5MIN PRN PRN Reason: Chest Pain Potassium Chloride (K-Dur) 20 meq PO BID-[facility] Last Admin: 11/16/17 08:54 Dose: 20 meq Senna (Senokot) 2 tab PO HSPRN PRN PRN Reason: Constipation Sodium Chloride (Flush - Normal Saline) 10 ml IVF Q12HR [facility] Last Admin: 11/16/17 09:30 Dose: 10 ml Sodium Chloride (Flush - Normal Saline) 10 ml IVF PRN PRN PRN Reason: Saline Flush
[2017-11-16] MEDS: Atorvastatin Calcium 40 MG TAB PO SCH (21:36)
[2017-11-17 05:38] LABS: INR-International Normal Ratio 1.6; Prothrombin Time 18.8 SEC (12.0-14.7)
[2017-11-17 05:45] LABS: Anion Gap 12 mmol/L (10-20); BUN (Urea Nitrogen) 23 mg/dL (8.4-25.7); Calc. Creatinine Clearance 57 mL/min (70-130); Calcium 9.4 mg/dL (7.8-10.44); Carbon Dioxide 23 mmol/L (23-31); Chloride 101 mmol/L (98-107); Estimated GFR-MDRD 75; Glucose 89 mg/dL (83-110); Potassium 5.2 mmol/L (3.5-5.1); Sodium 131 mmol/L (136-145)
--- NOTE | 2017-11-17 05:59 | PDOC.CTH ---
Cardiology Progress Note - Subjective Lots on non-specific complaints today. Hurts all over. No SOB - Objective Vital Signs Temp Pulse Resp BP BP Pulse Ox 11/17/17 03:38 97.7 F 71 20 115/76 96 11/16/17 23:42 97.6 F 93 19 116/81 96 11/16/17 21:36 117/72 11/16/17 20:00 98.1 F 67 18 117/72 95 11/16/17 19:30 98.1 F 67 18 95 Weight 152 lb 11/15/17 11/16/17 11/17/17 06:59 06:59 06:59 Intake Total 360 340 Output Total 600 650 Balance -240 -310 - Physical Examination General/Neuro: alert & oriented x3, NAD Neck: carotid US brisk, no JVD present Lungs: unlabored respirations Heart: RRR Abdomen: NT/ND, soft Extremities: + femoral B - Labs Result Diagrams: 11/17/17 05:03 11/17/17 11:49 Troponin/CKMB Troponin I 0.036 ng/mL (< 0.028) H 11/13/17 04:53 - Assessment/Plan CAD s/p CABG s/p ICD Acute systolic HF Non-compliance Difficult situation Recurrent hospitalizations secondary to not taking meds. 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
[2017-11-17 06:32] LABS: Band 1 % (5-11); Eosinophils 5 % (0-10); Hemoglobin 13.1 g/dL (14.0-18.0); Lymphocytes 59 % (21-51); MDiff Complete? YES; Mean Corpuscular HGB CONC 32.6 g/dL (32.0-36.0); Mean Corpuscular Volume 95.1 fL (78.0-98.0); Mean Platelet Volume 7.8 fL (7.4-10.4); Monocytes 8 % (0-10); Neutrophil 26 % (42-75); PLT Morphology Comment Appears Adequate; Platelet Count 226 thou/uL (130-400); RBC Distribution Width 15.5 % (11.5-14.5); Red Blood Cell (RBC) Count 4.24 mill/uL (4.70-6.10); White Blood Cell (WBC) Count 4.4 thou/uL (4.8-10.8)
[2017-11-17] MEDS: Furosemide 40 MG/4 ML VIAL SLOW IVP SCH ×2 (08:41→20:47)
[2017-11-17] MEDS: Potassium Chloride 20 MEQ TAB PO SCH ×2 (08:41→16:08)
[2017-11-17] MEDS: Lisinopril 2.5 MG TAB PO SCH (08:42)
[2017-11-17] MEDS: Apixaban 5 MG TAB PO SCH ×2 (08:42→20:47)
[2017-11-17] MEDS: Carvedilol 6.25 MG TAB PO SCH ×2 (08:42→20:48)
[2017-11-17] MEDS: Docusate 100 MG CAP PO SCH ×2 (08:42→20:48)
[2017-11-17] MEDS ORDERED: Metolazone 5 MG TAB PO SCH (09:00)
[2017-11-17 12:15] LABS: Potassium 4.5 mmol/L (3.5-5.1)
--- NOTE | 2017-11-17 14:12 | PDOC.PN ---
- Subjective Encounter Start Date: 11/17/17 Encounter Start Time: 14:11 Subjective: Pt refuses to talk and participate in exam. -: RN reports possibly urinating on himself & in room - Objective Resuscitation Status: Resuscitation Status FULL:Full Resuscitation MAR Reviewed: Yes Vital Signs & Weight: Vital Signs (12 hours) Temp Pulse Resp BP BP Pulse Ox 11/17/17 11:12 97.6 F 68 16 106/57 L 97 11/17/17 08:42 65 117/72 11/17/17 08:00 97.5 F L 65 18 11/17/17 07:35 97.5 F L 65 18 114/71 96 11/17/17 03:38 97.7 F 71 20 115/76 96 Weight Weight 153 lb 14.4 oz I&O: 11/16/17 11/17/17 11/18/17 06:59 06:59 06:59 Intake Total 340 240 500 Output Total 768 553 1608 Balance -310 -60 -710 Result Diagrams: 11/17/17 05:03 11/17/17 11:49 Additional Labs: Laboratory Tests 11/15/17 11/16/17 11/17/17 04:38 04:35 05:03 B-Natriuretic Peptide 1489.2 H 1536.9 H 1967.0 H Phys Exam - Physical Examination Constitutional: NAD HEENT: PERRLA, moist MMs, sclera anicteric, oral pharynx no lesions Neck: no nodes, no JVD, supple, full ROM Respiratory: no wheezing, no rales, no rhonchi Cardiovascular: RRR, no significant murmur Gastrointestinal: soft, non-tender, no distention, positive bowel sounds Musculoskeletal: pulses present, edema present Neurological: non-focal, normal sensation, moves all 4 limbs Psychiatric: A&O x 3 Dx/Plan (1) Acute on chronic systolic (congestive) heart failure Code(s): I50.23 - ACUTE ON CHRONIC SYSTOLIC (CONGESTIVE) HEART FAILURE Status : Acute Comment: Improving w diuresis. Has Ischemic cardiomyopathy with EF 10- 15%. Dr. Simons following, EF is very low. will continue Diuresis. (2) Coronary artery disease Code(s): I25.10 - ATHSCL HEART DISEASE OF [place] CORONARY ARTERY W/O ANG PCTRS Status: Chronic Comment: Continue with aspirin. (3) Dyslipidemia Code(s): E78.5 - HYPERLIPIDEMIA, UNSPECIFIED Status: Chronic Comment: (4) H/O sick sinus syndrome Code(s): Z86.79 - PERSONAL HISTORY OF OTHER DISEASES OF THE CIRCULATORY SYSTEM Status: Chronic (5) History of pulmonary embolism Code(s): Z86.711 - PERSONAL HISTORY OF PULMONARY EMBOLISM Status: Chronic Comment: Continue Eliquis 5 mg BID. (6) Hypertension Code(s): I10 - ESSENTIAL (PRIMARY) HYPERTENSION Status: Chronic Qualifiers: Hypertension type: essential hypertension Qualified Code(s): I10 - Essential (primary) hypertension Comment: continue pt on ACEi/ BB. (7) PAD (peripheral artery disease) Code(s): I73.9 - PERIPHERAL VASCULAR DISEASE, UNSPECIFIED Status: Chronic (8) S/P IVC filter Status: Chronic (9) Severe mitral regurgitation Code(s): I34.0 - NONRHEUMATIC MITRAL (VALVE) INSUFFICIENCY Status: Chronic (10) Tobacco abuse Code(s): Z72.0 - TOBACCO USE Status: Chronic (11) H/O deep venous thrombosis Code(s): Z86.718 - PERSONAL HISTORY OF OTHER VENOUS THROMBOSIS AND EMBOLISM Status: Acute Comment: on Anticoagulation (12) Ischemic cardiomyopathy Code(s): I25.5 - ISCHEMIC CARDIOMYOPATHY Status: Chronic Comment: AICD in place (13) Noncompliance with medication regimen Code(s): Z91.14 - PATIENT'S OTHER NONCOMPLIANCE WITH MEDICATION REGIMEN Status : Chronic Comment: - Plan DVT proph w/SCDs Poor diuresis .will give 1 dose zaroxolyn.strict I.Os -: cont cardio-prudent meds as below. -: on AC for h/o DVT/PE.monitor H/H -: AM labs. Stable .Difficult Discharge as pt is homeless -: Discussed i CV rounds-Pt left AMA from rehab after 20 days last time * . Review of Systems - Review of Systems Other: Pt does not answer Qs - Medications/Allergies Allergies/Adverse Reactions: Allergies Allergy/AdvReac Type Severity Reaction Status Date / Time No Known Allergies Allergy Verified 11/13/17 01:23 Medications: Current Medications Apixaban (Eliquis) 5 mg PO BID [facility] Last Admin: 11/17/17 08:42 Dose: 5 mg Aspirin (Aspirin Chewable) 81 mg PO DAILY [facility] Last Admin: 11/17/17 08:42 Dose: 81 mg Atorvastatin Calcium (Lipitor) 40 mg PO HS [facility] Last Admin: 11/16/17 21:36 Dose: 40 mg Bisacodyl (Dulcolax) 10 mg PO DAILYPRN PRN PRN Reason: Constipation- 2nd line Carvedilol (Coreg) 6.25 mg PO BID [facility] Last Admin: 11/17/17 08:42 Dose: 6.25 mg Docusate Sodium (Colace) 100 mg PO BID [facility] Last Admin: 11/17/17 08:42 Dose: 100 mg Furosemide (Lasix) 40 mg SLOW IVP BID [facility] Last Admin: 11/17/17 08:41 Dose: 40 mg Lisinopril (Zestril) 2.5 mg PO DAILY [facility] Last Admin: 11/17/17 08:42 Dose: 2.5 mg Nitroglycerin (Nitrostat) 0.4 mg SL Q5MIN PRN PRN Reason: Chest Pain Potassium Chloride (K-Dur) 20 meq PO BID-[facility] Last Admin: 11/17/17 08:41 Dose: 20 meq Senna (Senokot) 2 tab PO HSPRN PRN PRN Reason: Constipation- 1st Line Sodium Chloride (Flush - Normal Saline) 10 ml IVF Q12HR [facility] Last Admin: 11/17/17 08:42 Dose: 10 ml Sodium Chloride (Flush - Normal Saline) 10 ml IVF PRN PRN PRN Reason: Saline Flush
[2017-11-17] MEDS: Atorvastatin Calcium 40 MG TAB PO SCH (20:47)
[2017-11-18 06:22] LABS: #Basophils 0.1 thou/uL (0.0-0.2); #Eosinphils 0.4 thou/uL (0.0-0.7); #Lymphocytes 1.9 thou/uL (1.20-3.40); #Monocytes 0.5 thou/uL (0.11-0.59); #Neutrophils 1.4 thou/uL (1.40-6.50); %Basophils 1.6 % (0.0-1.0); %Eosinophils 9.6 % (0.0-10.0); %Lymphocytes 43.4 % (21.0-51.0); %Monocytes 11.7 % (0.0-10.0); %Neutrophils 33.7 % (42.0-75.0); Hemoglobin 13.8 g/dL (14.0-18.0); Mean Corpuscular HGB CONC 33.2 g/dL (32.0-36.0); Mean Corpuscular Hemoglobin 31.5 pg (27.0-31.0); Mean Corpuscular Volume 94.8 fL (78.0-98.0); Mean Platelet Volume 8.3 fL (7.4-10.4); Platelet Count 218 thou/uL (130-400); RBC Distribution Width 15.5 % (11.5-14.5); Red Blood Cell (RBC) Count 4.37 mill/uL (4.70-6.10); White Blood Cell (WBC) Count 4.3 thou/uL (4.8-10.8)
[2017-11-18 06:26] LABS: INR-International Normal Ratio 1.5
[2017-11-18 06:47] LABS: Anion Gap 16 mmol/L (10-20); BUN (Urea Nitrogen) 27 mg/dL (8.4-25.7); Calc. Creatinine Clearance 49 mL/min (70-130); Calcium 9.7 mg/dL (7.8-10.44); Carbon Dioxide 23 mmol/L (23-31); Chloride 99 mmol/L (98-107); Estimated GFR-MDRD 68; Glucose 98 mg/dL (83-110); Potassium 4.5 mmol/L (3.5-5.1); Sodium 133 mmol/L (136-145)
[2017-11-18 08:57] VITALS: BP 162/65; TEMP 98.1
[2017-11-18] MEDS: Potassium Chloride 20 MEQ TAB PO SCH (08:57)
[2017-11-18] MEDS: Docusate 100 MG CAP PO SCH (08:57)
[2017-11-18] MEDS: Apixaban 5 MG TAB PO SCH (08:57)
[2017-11-18] MEDS: Carvedilol 6.25 MG TAB PO SCH (08:58)
[2017-11-18] MEDS: Furosemide 40 MG/4 ML VIAL SLOW IVP SCH (08:58)
[2017-11-18] MEDS: Lisinopril 2.5 MG TAB PO SCH (08:58)
--- NOTE | 2017-11-18 13:07 | EKG ---
Test Reason : Blood Pressure : / mmHG Vent. Rate : 085 BPM Atrial Rate : 085 BPM P-R Int : 154 ms QRS Dur : 106 ms QT Int : 416 ms P-R-T Axes : 067 014 193 degrees QTc Int : 495 ms Normal sinus rhythm Possible Left atrial enlargement T wave abnormality, consider lateral ischemia Prolonged QT Abnormal ECG Confirmed by LAUREN VAZQUEZ DO ([id number]), features editor SANJU BEE ([id number]) on 11/18/2017 1:07:17 PM Referred By: Confirmed By:LAUREN VAZQUEZ DO
--- NOTE | 2017-11-18 21:08 | DIS ---
DATE OF ADMISSION: 11/12/2017 DATE OF DISCHARGE: 11/18/2017 CONDITION AT THE TIME OF DISCHARGE: Stable and improved. DISCHARGE DISPOSITION: Home. DISCHARGE MEDICATIONS: As follows, Eliquis 5 mg p.o. b.i.d., aspirin 81 mg daily, Lipitor 40 mg izabella y, carvedilol 6.25 mg p.o. b.i.d., Lasix 40 mg p.o. b.i.d., lisinopril 2.5 mg daily, potassium chlori de 20 mEq daily. INHOUSE CONSULTATION: Cardiology, Dr. Ladd, and Dr. Simons. PROCEDURES DONE IN THE HOSPITAL: Transthoracic echocardiogram which shows EF of 10%-15% with defibri llator wire seen, severe mitral regurgitation present. HISTORY OF PRESENTING ILLNESS: Mr. Kiser is a 72-year-old male with ischemic cardiomyopathy and end-s tage CHF, who is well known to our service from multiple hospitalizations and noncompliance, once aga in with complaints of worsening shortness of breath. He is rather a homeless and him being here mult iple times it has always been a difficulty discharging him. Last time, I took care of him and discha rge him to [facility] facility, but reportedly he checked himself out only after 20 days. Upon presentation, he underwent a CT angio, which was negative at [facility] and he was transferred he re to our facility and was admitted with a presumptive diagnosis of acute on chronic congestive heart failure. Please see admission history and physical for further detail. HOSPITAL COURSE: Cardiology was once again consulted. The patient was not taking any of his medicat ions, which were all restarted. Echocardiogram was repeated, which was essentially the same as multi ple prior echocardiograms. Eventually, the patient was diuresed extensively and achieved euvolemia a nd he was discharged earlier this morning. He refused to go to the rehabilitation. Once again, he r efused all the blood work, physical examination, and he actually refused to talk to the physician on multiple occasions. As of this morning, his vital signs are stable. Blood pressure 162/65 with heart rate of 74, afebril e, saturating 96% on room air. He pacing up and all in the hallways and refuses to let me examine hi m. His blood work this morning show WBCs 4.3, hemoglobin 13.8, platelet count of 218. Serum chemist proteins ry shows BUN 27, creatinine 1.26. The patient was discussed in the multidisciplinary cardiovascular rounds with the case fitter and [facility] and title department manager. The patient refused for followup appointments and he refused to pick pulling machine operator any prescriptions. Palliative care team also saw the patient, but it was kind of useless. The patient was given a taxi to the [facility] there I have sent all of his presc riptions. Please note that all of the prescriptions were refilled and the patient was instructed and encouraged strongly to start taking his medication, but still at the time of discharge: he refused.
== END 2017-11-18 12:27 | disposition home or self-care (01) | DRG 292 ==
LOC: ERS 21:11 → 2NO 23:53
PROVIDERS: ADMIT Internal Medicine; ATTEND Internal Medicine
DX: I11.0 Hypertensive heart disease with heart failure (principal); I24.8 Other forms of acute ischemic heart disease; I50.23 Acute on chronic systolic (congestive) heart failure; I25.5 Ischemic cardiomyopathy; E78.5 Hyperlipidemia, unspecified; I25.10 Atherosclerotic heart disease of native coronary artery without angina pectoris; F17.210 Nicotine dependence, cigarettes, uncomplicated; Z51.5 Encounter for palliative care; I34.0 Nonrheumatic mitral (valve) insufficiency; Z59.0 Homelessness; I73.9 Peripheral vascular disease, unspecified; Z53.29 Procedure and treatment not carried out because of patient's decision for other reasons; Z91.14 Patient's other noncompliance with medication regimen; Z86.718 Personal history of other venous thrombosis and embolism; Z86.711 Personal history of pulmonary embolism; Z79.82 Long term (current) use of aspirin; Z79.899 Other long term (current) drug therapy; Z95.810 Presence of automatic (implantable) cardiac defibrillator; Z95.1 Presence of aortocoronary bypass graft
CPT/HCPCS: 36415; 80048; 83880; 84484; 85025; 85610; 93005; 93010; 93306; A4216; J1650; J1940

== ENCOUNTER 2017-12-08 11:55 | Emergency (ER) | payer MEDICARE ==
[2017-12-08 13:03] LABS: CKMB 2.3 ng/mL (0-6.6); Troponin I 0.025 ng/mL (< 0.028)
[2017-12-08 13:05] LABS: #Eosinphils 0.2 thou/uL (0.0-0.7); #Lymphocytes 1.3 thou/uL (1.20-3.40); #Monocytes 0.5 thou/uL (0.11-0.59); #Neutrophils 1.9 thou/uL (1.40-6.50); %Basophils 1.1 % (0.0-1.0); %Eosinophils 4.2 % (0.0-10.0); %Lymphocytes 32.7 % (21.0-51.0); %Monocytes 13.4 % (0.0-10.0); %Neutrophils 48.6 % (42.0-75.0); Hemoglobin 12.6 g/dL (14.0-18.0); Mean Corpuscular HGB CONC 33.2 g/dL (32.0-36.0); Mean Corpuscular Hemoglobin 32.1 pg (27.0-31.0); Mean Corpuscular Volume 96.9 fL (78.0-98.0); Mean Platelet Volume 7.9 fL (7.4-10.4); Platelet Count 205 thou/uL (130-400); RBC Distribution Width 15.8 % (11.5-14.5); Red Blood Cell (RBC) Count 3.93 mill/uL (4.70-6.10)
[2017-12-08 13:07] LABS: ALT (SGPT) 8 U/L (8-55); AST (SGOT) 13 U/L (5-34); Albumin 3.6 g/dL (3.4-4.8); Alkaline Phosphatase 83 U/L (40-150); Anion Gap 14 mmol/L (10-20); BUN (Urea Nitrogen) 20 mg/dL (8.4-25.7); Bilirubin, Total 3.2 mg/dL (0.2-1.2); Calc. Creatinine Clearance 0 mL/min (70-130); Calcium 9.2 mg/dL (7.8-10.44); Carbon Dioxide 20 mmol/L (23-31); Chloride 109 mmol/L (98-107); Estimated GFR-MDRD 78; Globulin 3.3 g/dL (2.4-3.5); Glucose 95 mg/dL (83-110); Potassium 4.2 mmol/L (3.5-5.1); Protein, Total 6.9 g/dL (5.8-8.1); Sodium 139 mmol/L (136-145)
--- NOTE | 2017-12-08 14:16 | RAD ---
PORTABLE AP CHEST: Date: 12/08/17 HISTORY: Chest pain, bilateral lower extremity edema. COMPARISON: 11/12/17. FINDINGS: A dual lead right subclavian AICD device remains in place. Postsurgical changes related to CABG are a gain noted. Cardiac silhouette remains enlarged. Pulmonary vascular congestion does appear improved f rom prior study. There is suggestion of a tiny left pleural effusion and atelectasis. Vascular calcif ications seen in thoracic aorta. No other interval change. IMPRESSION: 1. Cardiomegaly. 2. Improvement in pulmonary vascular congestion. 3. Tiny left pleural effusion. POS: [facility]
--- NOTE | 2017-12-12 12:25 | EKG ---
Test Reason : ERSMG Blood Pressure : / mmHG Vent. Rate : 090 BPM Atrial Rate : 090 BPM P-R Int : 152 ms QRS Dur : 104 ms QT Int : 410 ms P-R-T Axes : 075 021 213 degrees QTc Int : 501 ms Sinus rhythm with occasional Premature ventricular complexes Possible Left atrial enlargement Left ventricular hypertrophy with repolarization abnormality Prolonged QT Abnormal ECG Confirmed by GINA YOUNG ([id number]), manager editorial MELITA BURK ([id number]) on 12/12/2017 12:24:35 PM Referred By: Confirmed By:GINA YOUNG
== END 2017-12-08 14:38 | disposition home or self-care (01) ==
LOC: ERS 11:55
DX: R07.9 Chest pain, unspecified (principal); Z86.718 Personal history of other venous thrombosis and embolism; I25.10 Atherosclerotic heart disease of native coronary artery without angina pectoris; E78.5 Hyperlipidemia, unspecified; I11.0 Hypertensive heart disease with heart failure; I50.9 Heart failure, unspecified; Z87.891 Personal history of nicotine dependence
CPT/HCPCS: 36415; 71045; 80053; 82553; 84484; 85025; 93005

== ENCOUNTER 2017-12-14 21:20 | Observation (INO) | payer MEDICARE ==
[2017-12-14] MEDS ORDERED: Nitroglycerin 2% Ointment 1 INCH/1 GM Packet ONE (22:18)
[2017-12-14] MEDS ORDERED: Furosemide 40 MG/4 ML VIAL ONE (22:18)
[2017-12-14] MEDS ORDERED: Enoxaparin Sodium 80 MG/0.8 ML SYRINGE ONE (22:21)
[2017-12-14 22:23] LABS: Troponin I 0.062 ng/mL (< 0.028)
[2017-12-15 01:47] VITALS: BMI 25.7
[2017-12-15] MEDS ORDERED: Furosemide 40 MG/4 ML VIAL SLOW IVP SCH (06:00)
[2017-12-15] MEDS ORDERED: Nitroglycerin 2% Ointment 1 INCH/1 GM Packet TOP SCH (06:00)
[2017-12-15] MEDS ORDERED: Aspirin 325 mg Enteric Coated Tablet PO SCH (09:00)
[2017-12-15] MEDS ORDERED: Acetaminophen 325 MG TAB PO PRN (10:19)
[2017-12-15] MEDS ORDERED: Guaifenesin DM 100-10/5 ML UDCUP PO PRN (10:19)
[2017-12-15] MEDS ORDERED: Mag-Al 1200 mg/1200 mg/30 ML UDCUP PO PRN (10:19)
--- NOTE | 2017-12-15 13:05 | HP ---
REASON FOR ADMISSION: Acute on chronic CHF exacerbation, noncompliance. HISTORY OF PRESENT ILLNESS: The patient gives history of shortness of breath from last 2 days. He also complained of chest pain apparently at [facility] which is not present at present. The patient states he has not taken his heart failure medications for the last few days now. He ambulates by himself, but has not been able to do so from last 2-3 days now. As this got progressively worse, the patient went to [facility] from where he was transferred here. The patient has known history of CHF with ejection fraction of around 10%-15%. PAST MEDICAL/SURGICAL HISTORY: CHF with ejection fraction of around 10%-15%, CABG, pacemaker with AICD, dyslipidemia, noncompliance with medication, history of DVT, PE and IVC filter. PERSONAL HISTORY: Does not abuse alcohol or drugs. Lives with a friend. FAMILY HISTORY: Mother in her 70s from unknown cause. Father had history of coronary artery disease and in his 60s per patient. CURRENT MEDICATIONS: Per prior records when he got discharged here in October, the patient was on aspirin 81 mg daily, atorvastatin 40 mg p.o. at bedtime, Coreg 6.25 mg twice daily, Lasix 40 mg twice daily, lisinopril 2.5 mg daily, potassium chloride 20 mEq p.o. daily, Eliquis 5 mg twice daily. The patient does not recall any of his medications. ALLERGIES: No known drug allergies. CODE STATUS: FULL. REVIEW OF SYSTEMS: The following complete review of systems was negative, unless otherwise mentioned in the HPI or below: Constitutional: Weight loss or gain, ability to conduct usual activities. Skin: Rash, itching. Eyes: Double vision, pain. ENT/Mouth: Nose bleeding, neck stiffness, pain, tenderness. Cardiovascular: Palpitations, dyspnea on exertion, orthopnea. Respiratory: Shortness of breath, wheezing, cough, hemoptysis, fever or night sweats. Gastrointestinal: Poor appetite, abdominal pain, heartburn, nausea, vomiting, constipation, or diarrhea. Genitourinary: Urgency, frequency, dysuria, nocturia. Musculoskeletal: Pain, swelling. Neurologic/Psychiatric: Anxiety, depression. Allergy/Immunologic: Skin rash, bleeding tendency. PHYSICAL EXAMINATION: GENERAL: The patient is a 72-year-old male who is currently not in any acute distress. VITAL SIGNS: Blood pressure 140/90, pulse 94 per minute, respiratory rate 20 per minute, temperature 97.5 degrees Fahrenheit, saturating 98% on room air. NECK: Supple. There is elevated JVD. HEENT: Eyes: Extraocular muscles intact. Pupils reacting to light. Oral cavity, mucous membranes are moist. No exudates or congestion. CARDIOVASCULAR: S1, S2 heard. Regular rhythm. RESPIRATORY: Air entry 1+ bilaterally. Rales plus in the intrascapular and infrascapular area. ABDOMEN: Soft, bowel sounds heard. No tenderness, rigidity or guarding. EXTREMITIES: There is no peripheral edema or calf tenderness. VASCULAR SYSTEM: Peripheral pulses 1+ bilateral, no ischemic ulcerations or gangrene. CENTRAL NERVOUS SYSTEM: No gross focal deficits noted. The patient is alert and oriented well. PSYCHIATRIC: The patient's mood is euthymic. No hallucinations or delusions. LABORATORY AND X-RAY FINDINGS: White count of 4, H&H 12 and 40, platelet count 235, MCV is 96 with 45% neutrophils. Serum bicarbonate is 20, BUN 15, creatinine 1.1, glucose 140, T-bilirubin is 3.4. AST and ALT within normal limits. Alkaline phosphatase is 82, albumin 3.6. BNP is 2700. Troponin I is indeterminate peaking up to 0.07, CK-MB 2.5. Chest x-ray done shows pulmonary vascular congestion with cardiomegaly. EKG done shows sinus rhythm at 97 beats per minute. There are T-inversion seen in lateral leads. CLINICAL IMPRESSION AND PLAN: The patient will be under observation on telemetry for acute on chronic congestive heart failure exacerbation with severe systolic dysfunction and ejection fraction of around 10%-15%. The patient is known to be noncompliant with medication and has not been taking any of his medications from the last few days now. The patient also acknowledges that he has not refilled any of his medications from his last discharge that was over 4 weeks back. We will continue him on Lasix 40 mg IV twice daily to gently diurese him. His systolic blood pressure is hovering around 100 and this will be closely monitored. We will also continue his prior home medications including aspirin and Eliquis for PE, Coreg, atorvastatin, small dose of lisinopril. His electrolytes will be closely monitored. Case management consultation will be requested for help with medications on discharge. The patient is already set up with [facility], but it is unclear if he is compliant with followups. We will continue to closely monitor him on telemetry. JEFFERY
[2017-12-15] MEDS ORDERED: Aspirin 81 mg Enteric Coated Tablet PO SCH (15:00)
[2017-12-15] MEDS: Furosemide 40 MG/4 ML VIAL SLOW IVP SCH (15:06)
[2017-12-15] MEDS: Carvedilol 6.25 MG TAB PO SCH (20:37)
[2017-12-15] MEDS: Famotidine 20 MG TAB PO SCH (20:37)
[2017-12-15] MEDS: Apixaban 5 MG TAB PO SCH (20:37)
[2017-12-15] MEDS: Docusate 100 MG CAP PO SCH (20:38)
[2017-12-15] MEDS ORDERED: Atorvastatin Calcium 40 MG TAB PO SCH (21:00)
[2017-12-16] MEDS: Furosemide 40 MG/4 ML VIAL SLOW IVP SCH ×2 (06:20→14:38)
[2017-12-16] MEDS: Famotidine 20 MG TAB PO SCH (08:46)
[2017-12-16] MEDS: Carvedilol 6.25 MG TAB PO SCH (08:47)
[2017-12-16] MEDS: Docusate 100 MG CAP PO SCH (08:47)
[2017-12-16] MEDS: Apixaban 5 MG TAB PO SCH (08:47)
[2017-12-16] MEDS ORDERED: Potassium Chloride 20 MEQ TAB PO SCH (09:00)
[2017-12-16] MEDS ORDERED: Lisinopril 2.5 MG TAB PO SCH (09:00)
[2017-12-16] MEDS ORDERED: Aspirin 81 mg Enteric Coated Tablet PO SCH (09:00)
--- NOTE | 2017-12-16 10:48 | PDOC.PN ---
- Subjective Encounter Start Date: 12/16/17 Encounter Start Time: 10:45 Subjective: feels weak, has sob, no chest pain or palp -: is getting up at bedside, not ambulated much - Objective Resuscitation Status: Resuscitation Status FULL:Full Resuscitation MAR Reviewed: Yes Vital Signs & Weight: Vital Signs (12 hours) Temp Pulse Resp BP BP Pulse Ox 12/16/17 08:47 119/83 12/16/17 08:46 67 12/16/17 07:39 97.5 F L 67 19 138/93 H 98 12/16/17 04:00 97.2 F L 64 16 117/75 100 12/16/17 00:00 97.6 F 81 18 112/73 100 Weight Weight 156 lb 4.8 oz I&O: 12/15/17 12/16/17 12/17/17 06:59 06:59 06:59 Intake Total 315 1820 Output Total 360 2950 Balance -45 -1130 Phys Exam - Physical Examination HEENT: PERRLA, moist MMs Neck: no JVD, supple Respiratory: no wheezing rales+ Cardiovascular: RRR, no significant murmur Gastrointestinal: soft, non-tender, positive bowel sounds Musculoskeletal: no edema, pulses present Neurological: non-focal, moves all 4 limbs Psychiatric: normal affect, A&O x 3 Dx/Plan (1) Acute on chronic systolic (congestive) heart failure Code(s): I50.23 - ACUTE ON CHRONIC SYSTOLIC (CONGESTIVE) HEART FAILURE Status : Acute Comment: EF 10-15%. (2) Demand ischemia of myocardium Code(s): I24.8 - OTHER FORMS OF ACUTE ISCHEMIC HEART DISEASE Status: Acute (3) H/O deep venous thrombosis Code(s): Z86.718 - PERSONAL HISTORY OF OTHER VENOUS THROMBOSIS AND EMBOLISM Status: Chronic Comment: h/o PE/ivc filter, on Anticoagulation (4) Coronary artery disease Code(s): I25.10 - ATHSCL HEART DISEASE OF [place] CORONARY ARTERY W/O ANG PCTRS Status: Chronic Qualifiers: Coronary Disease-Associated Artery/Lesion type: bypass graft [place] vs. transplanted heart: [place] heart Associated angina: with stable angina Qualified Code(s): I25.708 - Atherosclerosis of coronary artery bypass graft(s) , unspecified, with other forms of angina pectoris Comment: Continue with aspirin. (5) Dyslipidemia Code(s): E78.5 - HYPERLIPIDEMIA, UNSPECIFIED Status: Chronic Comment: (6) Noncompliance with medication regimen Code(s): Z91.14 - PATIENT'S OTHER NONCOMPLIANCE WITH MEDICATION REGIMEN Status : Chronic Comment: (7) PAD (peripheral artery disease) Code(s): I73.9 - PERIPHERAL VASCULAR DISEASE, UNSPECIFIED Status: Chronic - Plan gentle diuresis -: am labs are pending -: to ambulate in hallway as tolerated -: may switch to inpatient status if he is still sob/weak by this afternoon -: nebs prn, is on coreg, lisinopril, asp, lipitor and eliquis * . Poor prognosis with very poor ef and noncompliance with meds. Review of Systems - Medications/Allergies Allergies/Adverse Reactions: Allergies Allergy/AdvReac Type Severity Reaction Status Date / Time No Known Allergies Allergy Verified 11/13/17 01:23 Medications: Current Medications Acetaminophen (Tylenol) 650 mg PO Q4H PRN PRN Reason: Headache/Fever or Pain Al Hydroxide/Mg Hydroxide (Maalox) 30 ml PO Q6H PRN PRN Reason: Heartburn or Indigestion Apixaban (Eliquis) 5 mg PO BID [facility] Last Admin: 12/16/17 08:47 Dose: 5 mg Aspirin (Ecotrin) 81 mg PO DAILY [facility] Last Admin: 12/16/17 08:47 Dose: 81 mg Atorvastatin Calcium (Lipitor) 40 mg PO HS [facility] Last Admin: 12/15/17 20:38 Dose: 40 mg Carvedilol (Coreg) 6.25 mg PO BID [facility] Last Admin: 12/16/17 08:47 Dose: 6.25 mg Docusate Sodium (Colace) 100 mg PO BID [facility] Last Admin: 12/16/17 08:47 Dose: 100 mg Famotidine (Pepcid) 20 mg PO BID [facility] Last Admin: 12/16/17 08:46 Dose: 20 mg Furosemide (Lasix) 40 mg SLOW IVP 0600,1400 [facility] Last Admin: 12/16/17 06:20 Dose: 40 mg Guaifenesin/Dextromethorphan (Robitussin Dm) 15 ml PO Q4H PRN PRN Reason: Cough Lisinopril (Zestril) 2.5 mg PO DAILY [facility] Last Admin: 12/16/17 08:46 Dose: 2.5 mg Potassium Chloride (K-Dur) 20 meq PO DAILY [facility] Last Admin: 12/16/17 08:47 Dose: 20 meq
[2017-12-16 11:42] VITALS: BP 125/80; TEMP 97.6
[2017-12-16 12:40] LABS: #Basophils 0.1 thou/uL (0.0-0.2); #Eosinphils 0.4 thou/uL (0.0-0.7); #Lymphocytes 1.8 thou/uL (1.20-3.40); #Monocytes 0.5 thou/uL (0.11-0.59); #Neutrophils 1.9 thou/uL (1.40-6.50); %Basophils 1.4 % (0.0-1.0); %Eosinophils 8.1 % (0.0-10.0); %Lymphocytes 38.9 % (21.0-51.0); %Monocytes 10.8 % (0.0-10.0); %Neutrophils 40.8 % (42.0-75.0); Hemoglobin 13.5 g/dL (14.0-18.0); Mean Corpuscular HGB CONC 30.8 g/dL (32.0-36.0); Mean Corpuscular Hemoglobin 30.3 pg (27.0-31.0); Mean Corpuscular Volume 98.4 fL (78.0-98.0); Platelet Count 233 thou/uL (130-400); Red Blood Cell (RBC) Count 4.47 mill/uL (4.70-6.10); White Blood Cell (WBC) Count 4.5 thou/uL (4.8-10.8)
[2017-12-16 12:48] LABS: Anion Gap 13 mmol/L (10-20); BUN (Urea Nitrogen) 16 mg/dL (8.4-25.7); Calc. Creatinine Clearance 59 mL/min (70-130); Calcium 8.9 mg/dL (7.8-10.44); Carbon Dioxide 23 mmol/L (23-31); Chloride 104 mmol/L (98-107); Estimated GFR-MDRD 75; Glucose 104 mg/dL (83-110); Potassium 3.8 mmol/L (3.5-5.1); Sodium 136 mmol/L (136-145)
--- NOTE | 2017-12-16 20:33 | DIS ---
DATE OF ADMISSION: 12/15/2017 DATE OF DISCHARGE: 12/16/2017 DISCHARGE DISPOSITION: To home. PRIMARY DISCHARGE DIAGNOSES: Acute on chronic congestive heart failure exacerbation with systolic dy sfunction; noncompliance with medication; demand ischemia; history of deep venous thrombosis, pulmona ry embolism, inferior vena cava filter, on Eliquis; history of coronary artery disease; dyslipidemia; peripheral vascular disease. PROCEDURES DONE DURING HOSPITALIZATION: Chest x-ray done showed cardiomegaly with pulmonary vascular congestion. H&H 13 and 44, platelet count 233. BNP is 2700. Troponin I was indeterminate, peaking up to 0.07. CK-MB 2.5. DISCHARGE MEDICATIONS: Coreg 6.25 mg p.o. twice daily, Lasix 40 mg twice daily, lisinopril 2.5 mg da jessica, K-Dur 20 mEq p.o. daily, Lipitor 40 mg p.o. at bedtime, aspirin 81 mg p.o. daily, Eliquis 5 mg p .o. twice daily. ALLERGIES: No known drug allergies. DISCHARGE PLAN: The patient to follow up with primary care physician in 1 week and Heart Failure Cli genet as advised. BRIEF COURSE DURING HOSPITALIZATION: The patient initially went to [facility] ER for complaints o f chest pain and shortness of breath. He is known to be noncompliant with medication. He was recent ly discharged for CHF exacerbation on 11/18/2017. The patient did not fill any of his prescriptions at his pharmacy. He was gently diuresed during his stay here. Prior to discharge, he is ambulating and eating well. He has been counseled regarding medication compliance and dietary compliance with v jaxson poor ejection fraction. Case management consultation was requested for help with medication assi stance. He will be shortly discharged home. The patient has outpatient appointment set up with [facility]. Please see a [id number] documentation for the day of discharge on [facility].
--- NOTE | 2017-12-26 14:25 | EKG ---
Test Reason : Blood Pressure : / mmHG Vent. Rate : 090 BPM Atrial Rate : 090 BPM P-R Int : 162 ms QRS Dur : 100 ms QT Int : 406 ms P-R-T Axes : 071 006 175 degrees QTc Int : 496 ms Sinus rhythm with occasional Premature ventricular complexes Possible Left atrial enlargement T wave abnormality, consider lateral ischemia Prolonged QT Abnormal ECG Confirmed by ALEXIS BURCIAGA, MARIAA ([id number]), newspaper managing editor SANJU BEE ([id number]) on 12/26/2017 2:25:00 PM Referred By: Confirmed By:MARIAA ESPINOZA MD
== END 2017-12-16 17:13 | disposition home or self-care (01) ==
LOC: ERS 21:20 → IMCU/EMU 12-15 01:19 → INTOOBSV 12-15 01:19
PROVIDERS: ADMIT Internal Medicine; ATTEND Internal Medicine
DX: I50.23 Acute on chronic systolic (congestive) heart failure (principal); E78.5 Hyperlipidemia, unspecified; I24.8 Other forms of acute ischemic heart disease; I25.118 Atherosclerotic heart disease of native coronary artery with other forms of angina pectoris; I73.9 Peripheral vascular disease, unspecified; Z86.711 Personal history of pulmonary embolism; Z86.718 Personal history of other venous thrombosis and embolism; Z91.14 Patient's other noncompliance with medication regimen; Z79.82 Long term (current) use of aspirin; Z79.01 Long term (current) use of anticoagulants; Z79.899 Other long term (current) drug therapy; Z95.1 Presence of aortocoronary bypass graft; Z95.810 Presence of automatic (implantable) cardiac defibrillator
CPT/HCPCS: 80048; 84484; 85025; 93005; 96372; 96374; 96376 ×2; 99285; G0378; 36415; J1650; J1940

== ENCOUNTER 2018-02-09 15:33 | Emergency (ER) | payer MEDICARE ==
[2018-02-09 16:12] LABS: #Basophils 0.1 thou/uL (0.0-0.2); #Eosinphils 0.1 thou/uL (0.0-0.7); #Lymphocytes 1.4 thou/uL (1.20-3.40); #Monocytes 0.5 thou/uL (0.11-0.59); #Neutrophils 2.8 thou/uL (1.40-6.50); %Basophils 1.4 % (0.0-1.0); %Eosinophils 1.8 % (0.0-10.0); %Lymphocytes 29.4 % (21.0-51.0); %Monocytes 9.6 % (0.0-10.0); %Neutrophils 57.8 % (42.0-75.0); Hemoglobin 12.4 g/dL (14.0-18.0); Mean Corpuscular HGB CONC 31.5 g/dL (32.0-36.0); Mean Corpuscular Hemoglobin 30.9 pg (27.0-31.0); Mean Corpuscular Volume 98.2 fL (78.0-98.0); Mean Platelet Volume 7.5 fL (7.4-10.4); Platelet Count 275 thou/uL (130-400); RBC Distribution Width 14.7 % (11.5-14.5); White Blood Cell (WBC) Count 4.9 thou/uL (4.8-10.8)
[2018-02-09 16:35] LABS: ALT (SGPT) 37 U/L (8-55); AST (SGOT) 36 U/L (5-34); Albumin 3.6 g/dL (3.4-4.8); Alkaline Phosphatase 142 U/L (40-150); Anion Gap 14 mmol/L (10-20); BUN (Urea Nitrogen) 20 mg/dL (8.4-25.7); Bilirubin, Total 2.5 mg/dL (0.2-1.2); CK (CPK) 133 U/L (30-200); Calc. Creatinine Clearance 0 mL/min (70-130); Calcium 9.2 mg/dL (7.8-10.44); Carbon Dioxide 22 mmol/L (23-31); Chloride 106 mmol/L (98-107); Estimated GFR-MDRD 75; Globulin 3.3 g/dL (2.4-3.5); Glucose 124 mg/dL (83-110); Potassium 4.6 mmol/L (3.5-5.1); Protein, Total 6.9 g/dL (5.8-8.1); Sodium 137 mmol/L (136-145)
[2018-02-09] MEDS ORDERED: Furosemide 40 MG/4 ML VIAL ONE (16:44)
--- NOTE | 2018-02-09 18:03 | RAD ---
ONE VIEW CHEST: Comparison: 12-25-17 History: Pain. FINDINGS: Stable right sided defibrillator. Sternotomy wires. Heart is enlarged. The pulmonary vessels are with in normal limits. Costophrenic angles are clear. Persistent elevation of right hemidiaphragm. No mass es or consolidation. No pneumothorax or osseous abnormalities. IMPRESSION: Cardiomegaly. No congestive heart failure. POS: [facility]
== END 2018-02-09 17:11 | disposition home or self-care (01) ==
LOC: ERS 15:33
DX: M79.10 Myalgia, unspecified site (principal); I11.0 Hypertensive heart disease with heart failure; I50.9 Heart failure, unspecified; Z91.14 Patient's other noncompliance with medication regimen; Z86.718 Personal history of other venous thrombosis and embolism; I25.10 Atherosclerotic heart disease of native coronary artery without angina pectoris; E78.5 Hyperlipidemia, unspecified; Z87.891 Personal history of nicotine dependence
CPT/HCPCS: 36415; 71045; 80053; 82553; 83880; 84484; 85025; 93005; 96374; J1940

== ENCOUNTER 2018-02-11 18:47 | Emergency (ER) | payer MEDICARE ==
[2018-02-11 19:51] LABS: #Basophils 0.1 thou/uL (0.0-0.2); #Eosinphils 0.1 thou/uL (0.0-0.7); #Lymphocytes 1.2 thou/uL (1.20-3.40); #Monocytes 0.5 thou/uL (0.11-0.59); #Neutrophils 2.5 thou/uL (1.40-6.50); %Basophils 1.4 % (0.0-1.0); %Eosinophils 3.2 % (0.0-10.0); %Lymphocytes 26.8 % (21.0-51.0); %Monocytes 10.4 % (0.0-10.0); %Neutrophils 58.3 % (42.0-75.0); Hemoglobin 12.1 g/dL (14.0-18.0); Mean Corpuscular HGB CONC 32.4 g/dL (32.0-36.0); Mean Corpuscular Hemoglobin 31.4 pg (27.0-31.0); Mean Corpuscular Volume 96.7 fL (78.0-98.0); Mean Platelet Volume 7.5 fL (7.4-10.4); Platelet Count 251 thou/uL (130-400); RBC Distribution Width 14.4 % (11.5-14.5); Red Blood Cell (RBC) Count 3.85 mill/uL (4.70-6.10); White Blood Cell (WBC) Count 4.3 thou/uL (4.8-10.8)
[2018-02-11 20:07] LABS: ALT (SGPT) 47 U/L (8-55); AST (SGOT) 44 U/L (5-34); Albumin 3.3 g/dL (3.4-4.8); Alkaline Phosphatase 142 U/L (40-150); Anion Gap 15 mmol/L (10-20); BUN (Urea Nitrogen) 23 mg/dL (8.4-25.7); Bilirubin, Total 2.5 mg/dL (0.2-1.2); Calc. Creatinine Clearance 0 mL/min (70-130); Calcium 8.8 mg/dL (7.8-10.44); Carbon Dioxide 17 mmol/L (23-31); Chloride 109 mmol/L (98-107); Estimated GFR-MDRD 80; Globulin 3.1 g/dL (2.4-3.5); Glucose 129 mg/dL (83-110); Protein, Total 6.4 g/dL (5.8-8.1); Sodium 137 mmol/L (136-145)
[2018-02-11 20:11] LABS: CKMB 3.4 ng/mL (0-6.6); Troponin I 0.038 ng/mL (< 0.028)
--- NOTE | 2018-02-11 22:17 | CT ---
CT ANGIOGRAM OF THE CHEST 02/11/18 HISTORY: Chronic chest pain. COMPARISON: 11/12/17. TECHNIQUE: CT angiogram of the chest is performed in the axial plane. Three dimensional reformatted images are s ubmitted for interpretation. FINDINGS: The heart is enlarged. There are extensive coronary calcifications. No significant pericardial fluid. There is reflux of contrast into the intrahepatic veins compatible with right heart failure. Contrac el gallbladder and there is evidence of fluid in the gallbladder fossa. The visualized solid organs are unremarkable. There is atherosclerosis of the thoracic aorta. No definite periaortic fat stranding. Small amount of perisplenic fluid is noted. Small left sided pleural effusion is redemonstrated. Linear opacities in the left lower lobe likely represents areas of scar or atelectasis. There is no evidence of consolidation or mass. There are no nodules. Stable minimal blebs in the left upper lobe. There is a small amount of fluid in the superio r right major fissure, unchanged from the previous examination. The aforementioned left sided pleural effusion is also stable. Adequate contrast opacification of the pulmonary arterial system to the lev el of the segmental arteries. No filling defect to suggest thromboembolism. No lytic or blastic lesions in the osseous structures. Old left rib fractures are noted. Dilatation of both central pulmonary arteries compatible with pulmonary arterial hypertension. IMPRESSION: 1. No evidence of pulmonary artery embolism to the level of the segmental arteries. 2. Cardiomegaly. 3. Right heart failure with evidence of reflux of contrast. 4. Contracted gallbladder. Possible fluid in the gallbladder fossa. 5. Redemonstration of bilateral pleural effusions. 6. Pulmonary arterial hypertension. POS: [facility]
== END 2018-02-11 23:00 | disposition home or self-care (01) ==
LOC: ERS 18:47
DX: R07.2 Precordial pain (principal); Z86.718 Personal history of other venous thrombosis and embolism; I25.10 Atherosclerotic heart disease of native coronary artery without angina pectoris; I11.0 Hypertensive heart disease with heart failure; I50.9 Heart failure, unspecified; E78.5 Hyperlipidemia, unspecified; Z87.891 Personal history of nicotine dependence; Z79.899 Other long term (current) drug therapy
CPT/HCPCS: 36415; 71275; 80053; 82553; 84484; 85025; 85379; 93005; 94760; 96360

== ENCOUNTER 2018-03-04 18:56 | Inpatient (IN) | payer MEDICARE ==
[2018-03-04] MEDS ORDERED: Senokot S 8.6-50 MG TAB PO PRN (20:49)
[2018-03-04] MEDS ORDERED: Zolpidem Tartrate 5 MG TAB PO PRN (20:49)
[2018-03-04] MEDS ORDERED: Bisacodyl 5 MG TAB PO PRN (20:49)
[2018-03-04] MEDS ORDERED: Ondansetron ODT 4 MG TAB SL PRN (22:09)
[2018-03-04] MEDS ORDERED: Ondansetron PF 4 MG/2 ML Vial IVP PRN (22:09)
[2018-03-04] MEDS ORDERED: HYDROcodone/Acetaminophen 5/325 mg Tablet PO PRN ×2 (22:09)
[2018-03-04] MEDS ORDERED: Acetaminophen 325 MG TAB PO PRN (22:09)
[2018-03-04] MEDS: Apixaban 5 MG TAB PO SCH (23:12)
[2018-03-04] MEDS: Atorvastatin Calcium 40 MG TAB PO SCH (23:12)
[2018-03-04] MEDS: Carvedilol 6.25 MG TAB PO SCH (23:12)
[2018-03-04 23:45] VITALS: BMI 26.4
[2018-03-05] MEDS ORDERED: Diabetic Tussin 200 MG/10 ML UDCUP PO PRN (03:53)
[2018-03-05] MEDS: Furosemide 40 MG/4 ML VIAL SLOW IVP SCH ×2 (06:10→14:06)
[2018-03-05 06:18] LABS: #Basophils 0.1 thou/uL (0.0-0.2); #Eosinphils 0.4 thou/uL (0.0-0.7); #Lymphocytes 1.8 thou/uL (1.20-3.40); #Monocytes 0.6 thou/uL (0.11-0.59); #Neutrophils 2.3 thou/uL (1.40-6.50); %Basophils 1.3 % (0.0-1.0); %Monocytes 12.3 % (0.0-10.0); %Neutrophils 44.4 % (42.0-75.0); Hemoglobin 12.6 g/dL (14.0-18.0); Mean Corpuscular HGB CONC 32.4 g/dL (32.0-36.0); Mean Corpuscular Hemoglobin 30.6 pg (27.0-31.0); Mean Corpuscular Volume 94.5 fL (78.0-98.0); Mean Platelet Volume 8.1 fL (7.4-10.4); Platelet Count 237 thou/uL (130-400); RBC Distribution Width 14.2 % (11.5-14.5); Red Blood Cell (RBC) Count 4.12 mill/uL (4.70-6.10); White Blood Cell (WBC) Count 5.1 thou/uL (4.8-10.8)
[2018-03-05 06:36] LABS: ALT (SGPT) 11 U/L (8-55); AST (SGOT) 17 U/L (5-34); Albumin 3.4 g/dL (3.4-4.8); Alkaline Phosphatase 127 U/L (40-150); Anion Gap 14 mmol/L (10-20); BUN (Urea Nitrogen) 22 mg/dL (8.4-25.7); Bilirubin, Total 2.2 mg/dL (0.2-1.2); Calc. Creatinine Clearance 74 mL/min (70-130); Calcium 9.1 mg/dL (7.8-10.44); Carbon Dioxide 23 mmol/L (23-31); Chloride 105 mmol/L (98-107); Estimated GFR-MDRD 89; Globulin 3.5 g/dL (2.4-3.5); Glucose 119 mg/dL (83-110); Magnesium 1.7 mg/dL (1.6-2.6); Potassium 3.9 mmol/L (3.5-5.1); Protein, Total 6.9 g/dL (5.8-8.1); Sodium 138 mmol/L (136-145)
--- NOTE | 2018-03-05 07:30 | HP ---
CHIEF COMPLAINT: Shortness of breath. HISTORY OF PRESENT ILLNESS: This is a 72-year-old male with past medical history of COPD; coronary artery disease; deep venous thrombosis; congestive heart failure, status post pacemaker; hyperlipidemia; hypertension; presenting with shortness of breath. The patient was transferred from [facility] due to shortness of breath that was attributed to congestive heart failure exacerbation. The patient was noted to have bilateral lower extremity edema, and the patient was saturating at 90% on room air. At this point, upon speaking to the patient, the patient stated that he was having severe shortness of breath and some cough. The shortness of breath worsened and he was not able to catch his breath and this is the reason why he went to the ER. Of note, the patient was currently in our hospital on 07/27/2017 and the patient was admitted for elevated blood pressure. Upon reviewing the patient's chart, the patient had an echo done on 11/13/2017, which showed left ventricular ejection fraction of 10% to 15%. The patient had mildly enlarged right atrium size, severe mitral regurg, mild tricuspid regurg, and mild pulmonic regurg. REVIEW OF SYSTEMS: Shortness of breath and cough, otherwise as documented in the HPI, all other systems were reviewed and are negative. PAST MEDICAL HISTORY: Diabetes mellitus; hypertension; hyperlipidemia; DVT; coronary artery disease; congestive heart failure, status post pacemaker. FAMILY HISTORY: Reviewed and noncontributory to this visit. SURGICAL HISTORY: Coronary artery bypass graft, status post pacemaker. PSYCHIATRIC HISTORY: No psych history. SOCIAL HISTORY: The patient uses tobacco. The patient chews tobacco. The patient drinks socially. The patient denies any illicit drug use. ALLERGIES: NO KNOWN DRUG ALLERGIES. CURRENT MEDICATIONS: The patient is on, 1. K-Dur. 2. Lasix 40. 3. Coreg 6.25. 4. Lisinopril 2.5. 5. Atorvastatin 40. PHYSICAL EXAMINATION: VITAL SIGNS: Blood pressure is 151/108, pulse of 84, respiratory rate of 22, temperature of 98.7, and O2 saturation of 100 on 2 L. GENERAL: The patient is alert and oriented x3, not in acute distress. HEENT: Normocephalic, atraumatic. Pupils are equally round and reactive to light. Extraocular movements are intact. No scleral icterus. No conjunctival pallor. Mucous membranes are moist. NECK: There is JVD noted. No meningeal signs. Neck is supple. LUNGS: The patient has bilateral rhonchi at anterior lung morillo and posterior lung morillo bilaterally. No wheezes can be appreciated. CARDIO: The patient has a pacemaker defibrillator at the right upper chest. Midline sternotomy noted. Positive S1 and S2. Regular rate and rhythm. ABDOMEN: Soft, nontender, and nondistended. Positive bowel sounds in all quadrants. EXTREMITIES: The patient has 5/5 upper extremity strength and 5/5 lower extremity strength. The patient does have bilateral lower extremity edema noted. The patient has good pulses of the upper and lower extremities bilaterally. NEUROLOGIC: Cranial nerves 2 through 12 grossly intact. No neurologic deficit noted. SKIN: Warm, dry and intact. LABORATORY DATA: WBC is 5.1, hemoglobin is 12.6, hematocrit is 38.9, platelets are 237. Electrolytes; sodium is 138, potassium is 3.9, carbon dioxide 23, anion gap of 14, BUN 22, creatinine is 1.00. BNP that was done at [place] was 3369. Troponin was 0.053. IMAGING STUDIES: Chest x-ray showed prominent cardiomegaly with bilateral vascular congestions without overt confluent, pneumonia, or acute edema. ASSESSMENT AND PLAN: This is a 72-year-old male with extensive cardiac history, being admitted for shortness of breath secondary to congestive heart failure exacerbation. At this point, the patient has been started on Lasix IV. We have consulted Cardiology. We will continue the patient on current management, and we will monitor the patient. Noncompliance to medications. The patient is noncompliant with his home medications and this has been noted. At this point, we will highly recommend that insurance case manager to advise the patient on the importance of being compliant with his medications. History of pulmonary embolism. The patient on Eliquis. We will continue Eliquis. Hyperlipidemia. We will continue the patient on his current home medications. Deep venous thrombosis and gastrointestinal prophylaxis. Job ID: [id number]
[2018-03-05] MEDS: Apixaban 5 MG TAB PO SCH ×2 (08:58→21:13)
[2018-03-05] MEDS: Carvedilol 6.25 MG TAB PO SCH ×2 (08:58→21:13)
[2018-03-05] MEDS: Lisinopril 2.5 MG TAB PO SCH (08:58)
[2018-03-05] MEDS: Potassium Chloride 20 MEQ TAB PO SCH (08:59)
[2018-03-05] MEDS ORDERED: Prevnar 13-Val Conj/PF 0.5 ML SYRINGE IM ONE (09:00)
--- NOTE | 2018-03-05 13:26 | PDOC.PN ---
- Subjective Encounter Start Date: 03/05/18 Encounter Start Time: 08:00 Pt seen for followup re: acute on chronic systolic heart failure NYHA Class 3 and ACC/AHA class C. Says he feels slightly better. - Objective Resuscitation Status - Order Detail: 03/04/18 20:32 Resuscitation Status Routine Resuscitation Status: FULL: Full Resuscitation MAR Reviewed: Yes Vital Signs & Weight: Vital Signs (12 hours) Temp Pulse Resp BP Pulse Ox 03/05/18 11:10 97.9 F 72 15 135/79 97 03/05/18 07:36 97.8 F 71 18 126/73 96 03/05/18 04:00 97.4 F L 73 19 117/87 99 Weight Weight 169 lb 1.6 oz I&O: 03/04/18 03/05/18 03/06/18 06:59 06:59 06:59 Intake Total 600 Output Total 300 Balance 300 Result Diagrams: 03/05/18 06:03 03/05/18 06:03 EKG Reviewed by me: Yes (Tele: NSR) Phys Exam - Physical Examination Constitutional: NAD HEENT: moist MMs, sclera anicteric, oral pharynx no lesions, 2+ tonsils Neck: no nodes, no JVD, supple, full ROM Malik crackles Cardiovascular: RRR, no rub S1, s2 Gastrointestinal: soft, non-tender, no distention, positive bowel sounds Neurological: moves all 4 limbs Psychiatric: normal affect, A&O x 3 Dx/Plan (1) Acute on chronic systolic ACC/AHA stage C congestive heart failure Code(s): I50.23 - ACUTE ON CHRONIC SYSTOLIC (CONGESTIVE) HEART FAILURE Status : Acute Comment: continue IV diuretics. (2) Dyslipidemia Code(s): E78.5 - HYPERLIPIDEMIA, UNSPECIFIED Status: Chronic Comment: continue statin (3) Hypertension Code(s): I10 - ESSENTIAL (PRIMARY) HYPERTENSION Status: Chronic Qualifiers: Hypertension type: essential hypertension Qualified Code(s): I10 - Essential (primary) hypertension Comment: continue pt on ACEI/ BB. (4) Ischemic cardiomyopathy Code(s): I25.5 - ISCHEMIC CARDIOMYOPATHY Status: Chronic Comment: AICD in place (5) Noncompliance with medication regimen Code(s): Z91.14 - PATIENT'S OTHER NONCOMPLIANCE WITH MEDICATION REGIMEN Status : Chronic Comment: counseled pt - Plan * . Review of Systems - Review of Systems Constitutional: negative: fever, chills, sweats, weakness, malaise Respiratory: SOB with Excertion. negative: Cough, Shortness of Breath, Hemoptysis, Pleuritic Pain, Wheezing Cardiovascular: orthopnea. negative: chest pain, palpitations, paroxysmal nocturnal dyspnea, edema, light headedness Gastrointestinal: negative: Nausea, Vomiting, Abdominal Pain, Diarrhea, Constipation, Melena, Hematochezia Genitourinary: negative: Dysuria, Frequency, Incontinence, Hematuria, Retention Neurological: negative: Weakness, Numbness, Incoordination, Change in Speech, Confusion, Seizures - Medications/Allergies Allergies/Adverse Reactions: Allergies Allergy/AdvReac Type Severity Reaction Status Date / Time No Known Allergies Allergy Verified 11/13/17 01:23 Medications: Current Medications Apixaban (Eliquis) 5 mg PO BID [facility] Last Admin: 03/05/18 08:58 Dose: 5 mg Aspirin (Aspirin Chewable) 81 mg PO DAILY [facility] Last Admin: 03/05/18 08:58 Dose: 81 mg Atorvastatin Calcium (Lipitor) 40 mg PO HS [facility] Last Admin: 03/04/18 23:12 Dose: 40 mg Bisacodyl (Dulcolax) 10 mg PO DAILYPRN PRN PRN Reason: Constipation Carvedilol (Coreg) 6.25 mg PO BID [facility] Last Admin: 03/05/18 08:58 Dose: 6.25 mg Furosemide (Lasix) 40 mg SLOW IVP 0600,1400 [facility] Last Admin: 03/05/18 06:10 Dose: 40 mg Guaifenesin (Robitussin Sf) 300 mg PO Q6H PRN PRN Reason: Cough Last Admin: 03/05/18 04:01 Dose: 300 mg Lisinopril (Zestril) 2.5 mg PO DAILY [facility] Last Admin: 03/05/18 08:58 Dose: 2.5 mg Potassium Chloride (K-Dur) 20 meq PO DAILY [facility] Last Admin: 03/05/18 08:59 Dose: 20 meq Senna/Docusate Sodium (Senokot S) 2 tab PO BIDPRN PRN PRN Reason: Constipation Sodium Chloride (Flush - Normal Saline) 10 ml IVF Q12HR [facility] Last Admin: 03/05/18 08:59 Dose: 10 ml Sodium Chloride (Flush - Normal Saline) 10 ml IVF PRN PRN PRN Reason: Saline Flush Zolpidem Tartrate (Ambien) 5 mg PO HSPRN PRN PRN Reason: Insomnia
--- NOTE | 2018-03-05 15:28 | CON ---
DATE OF CONSULTATION: REASON FOR CONSULTATION: Acute on chronic systolic heart failure. HISTORY OF PRESENT ILLNESS: Mr. Kiser is a 72-year-old gentleman with extensive cardiac history of previous ischemic cardiomyopathy and history of CAD; status post bypass surgery. He has been grossly noncompliant in the past. He continues to have recurrent hospitalizations for heart failure. He recently presented with shortness of breath. No chest pain or pressure noted. Positive PND, positive orthopnea. PAST MEDICAL HISTORY: Diabetes mellitus, hypertension, DVTs, CAD, ischemic cardiomyopathy. PAST SURGICAL HISTORY: As above. SOCIAL HISTORY: Positive tobacco. Positive alcohol use. ALLERGIES: NONE. HOME MEDICATIONS: Listed from last hospitalization: 1. Coreg. 2. Lisinopril. 3. Atorvastatin. REVIEW OF SYSTEMS: Ten-point review of systems is reviewed and is negative. PHYSICAL EXAMINATION: GENERAL: Patient is a pleasant male, who is in no acute distress. The patient appears their stated age. VITAL SIGNS: Blood pressure 135/79, pulse 72, temperature 97.9. NEUROLOGIC: The patient is alert and oriented x3 with no focal neurologic deficits. HEENT: Sclerae without icterus. Mouth has moist mucous membranes with normal pallor. NECK: No JVD. Carotid upstroke brisk. No bruits bilaterally. LUNGS: Clear to auscultation with unlabored respirations. Crackles noted bilaterally. BACK: No scoliosis or kyphosis. CARDIAC: Regular rate and rhythm with normal S1 and S2. No S3 or S4 noted. No significant rubs, murmurs, thrills, or gallops noted throughout the precordium. PMI is not displaced. There is no parasternal heave. ABDOMEN: Soft, nontender, nondistended. No peritoneal signs present. No hepatosplenomegaly. No abnormal striae. EXTREMITIES: 2+ femoral and 2+ dorsalis pedis pulses. No cyanosis or clubbing. 2+ pitting edema. SKIN: No gross abnormalities. LABORATORY DATA: Hemoglobin 12.6. Creatinine 1.0. IMPRESSION: 1. Acute on chronic systolic heart failure. 2. Noncompliance. 3. Deep vein thrombosis. RECOMMENDATIONS: At this point, we will continue Lasix therapy. We will try and place him on his outpatient medications. Unfortunately, he has been noncompliant in the past and is most likely the reason for his continued or repeat hospitalization. Social Service has been consulted for assistance. I would not recommend anymore aggressive CV approach given the above. Job ID: [id number]
[2018-03-05] MEDS: Atorvastatin Calcium 40 MG TAB PO SCH (21:13)
[2018-03-06] MEDS: Furosemide 40 MG/4 ML VIAL SLOW IVP SCH ×2 (05:55→13:11)
[2018-03-06] MEDS: Carvedilol 6.25 MG TAB PO SCH ×2 (08:33→21:10)
[2018-03-06] MEDS: Apixaban 5 MG TAB PO SCH ×2 (08:33→21:10)
[2018-03-06] MEDS: Potassium Chloride 20 MEQ TAB PO SCH (08:33)
[2018-03-06] MEDS: Lisinopril 2.5 MG TAB PO SCH (08:33)
--- NOTE | 2018-03-06 14:53 | PDOC.PN ---
- Subjective Encounter Start Date: 03/06/18 Encounter Start Time: 08:20 Pt seen for followup re: systolic CHF exacerbation. feels slightly better. - Objective Resuscitation Status - Order Detail: 03/04/18 20:32 Resuscitation Status Routine Resuscitation Status: FULL: Full Resuscitation Vital Signs & Weight: Vital Signs (12 hours) Temp Pulse Resp BP BP Pulse Ox 03/06/18 11:52 97.7 F 88 15 113/73 99 03/06/18 08:18 98.8 F 75 16 149/99 H 96 03/06/18 07:48 96 03/06/18 04:00 97.4 F L 66 22 H 119/78 96 Weight Weight 169 lb 1.6 oz I&O: 03/05/18 03/06/18 03/07/18 06:59 06:59 06:59 Intake Total 600 2180 Output Total 300 600 Balance 300 1580 Result Diagrams: 03/05/18 06:03 03/05/18 06:03 Phys Exam - Physical Examination Constitutional: NAD HEENT: moist MMs Neck: supple Malik crackles Cardiovascular: RRR Gastrointestinal: soft Neurological: moves all 4 limbs Psychiatric: normal affect Dx/Plan (1) Acute on chronic systolic ACC/AHA stage C congestive heart failure Code(s): I50.23 - ACUTE ON CHRONIC SYSTOLIC (CONGESTIVE) HEART FAILURE Status : Acute Comment: continue IV furosemide for now, interrogate PPM. (2) Dyslipidemia Code(s): E78.5 - HYPERLIPIDEMIA, UNSPECIFIED Status: Chronic Comment: on statin (3) Hypertension Code(s): I10 - ESSENTIAL (PRIMARY) HYPERTENSION Status: Chronic Qualifiers: Hypertension type: essential hypertension Qualified Code(s): I10 - Essential (primary) hypertension Comment: continue ACEI/ BB. (4) Ischemic cardiomyopathy Code(s): I25.5 - ISCHEMIC CARDIOMYOPATHY Status: Chronic Comment: AICD in place (5) Noncompliance with medication regimen Code(s): Z91.14 - PATIENT'S OTHER NONCOMPLIANCE WITH MEDICATION REGIMEN Status : Chronic - Plan * . Review of Systems - Review of Systems Respiratory: SOB with Excertion. negative: Cough, Dry, Shortness of Breath, Hemoptysis, Pleuritic Pain, Sputum, Wheezing Cardiovascular: orthopnea. negative: chest pain, palpitations, paroxysmal nocturnal dyspnea, edema, light headedness Gastrointestinal: negative: Nausea, Vomiting, Abdominal Pain, Diarrhea, Constipation, Melena, Hematochezia - Medications/Allergies Allergies/Adverse Reactions: Allergies Allergy/AdvReac Type Severity Reaction Status Date / Time No Known Allergies Allergy Verified 11/13/17 01:23 Medications: Current Medications Apixaban (Eliquis) 5 mg PO BID [facility] Last Admin: 03/06/18 08:33 Dose: 5 mg Aspirin (Aspirin Chewable) 81 mg PO DAILY [facility] Last Admin: 03/06/18 08:33 Dose: 81 mg Atorvastatin Calcium (Lipitor) 40 mg PO HS [facility] Last Admin: 03/05/18 21:13 Dose: 40 mg Bisacodyl (Dulcolax) 10 mg PO DAILYPRN PRN PRN Reason: Constipation Carvedilol (Coreg) 6.25 mg PO BID [facility] Last Admin: 03/06/18 08:33 Dose: 6.25 mg Furosemide (Lasix) 40 mg SLOW IVP 0600,1400 [facility] Last Admin: 03/06/18 13:11 Dose: 40 mg Guaifenesin (Robitussin Sf) 300 mg PO Q6H PRN PRN Reason: Cough Last Admin: 03/05/18 04:01 Dose: 300 mg Lisinopril (Zestril) 5 mg PO DAILY [facility] Potassium Chloride (K-Dur) 20 meq PO DAILY [facility] Last Admin: 03/06/18 08:33 Dose: 20 meq Senna/Docusate Sodium (Senokot S) 2 tab PO BIDPRN PRN PRN Reason: Constipation Sodium Chloride (Flush - Normal Saline) 10 ml IVF Q12HR [facility] Last Admin: 03/06/18 08:33 Dose: 10 ml Sodium Chloride (Flush - Normal Saline) 10 ml IVF PRN PRN PRN Reason: Saline Flush Last Admin: 03/05/18 14:06 Dose: 10 ml Zolpidem Tartrate (Ambien) 5 mg PO HSPRN PRN PRN Reason: Insomnia
[2018-03-06] MEDS: Atorvastatin Calcium 40 MG TAB PO SCH (21:11)
[2018-03-07] MEDS: Furosemide 40 MG/4 ML VIAL SLOW IVP SCH ×2 (05:22→13:57)
[2018-03-07 07:58] VITALS: TEMP 97.9
[2018-03-07 08:08] LABS: #Basophils 0.1 thou/uL (0.0-0.2); #Eosinphils 0.3 thou/uL (0.0-0.7); #Lymphocytes 2.5 thou/uL (1.20-3.40); #Monocytes 0.7 thou/uL (0.11-0.59); #Neutrophils 2.1 thou/uL (1.40-6.50); %Basophils 1.3 % (0.0-1.0); %Eosinophils 5.9 % (0.0-10.0); %Lymphocytes 43.5 % (21.0-51.0); %Monocytes 12.4 % (0.0-10.0); %Neutrophils 36.9 % (42.0-75.0); Hemoglobin 13.4 g/dL (14.0-18.0); Mean Corpuscular HGB CONC 31.2 g/dL (32.0-36.0); Mean Corpuscular Hemoglobin 29.8 pg (27.0-31.0); Mean Corpuscular Volume 95.6 fL (78.0-98.0); Mean Platelet Volume 8.7 fL (7.4-10.4); Platelet Count 244 thou/uL (130-400); RBC Distribution Width 14.1 % (11.5-14.5); Red Blood Cell (RBC) Count 4.48 mill/uL (4.70-6.10); White Blood Cell (WBC) Count 5.8 thou/uL (4.8-10.8)
[2018-03-07 08:31] LABS: Anion Gap 14 mmol/L (10-20); BUN (Urea Nitrogen) 24 mg/dL (8.4-25.7); Calc. Creatinine Clearance 72 mL/min (70-130); Calcium 9.6 mg/dL (7.8-10.44); Carbon Dioxide 24 mmol/L (23-31); Chloride 104 mmol/L (98-107); Estimated GFR-MDRD 89; Glucose 90 mg/dL (83-110); Potassium 4.4 mmol/L (3.5-5.1); Sodium 138 mmol/L (136-145)
[2018-03-07] MEDS ORDERED: Lisinopril 5 MG TAB PO SCH ×2 (09:00)
[2018-03-07] MEDS: Carvedilol 6.25 MG TAB PO SCH (09:57)
[2018-03-07] MEDS: Apixaban 5 MG TAB PO SCH (09:57)
[2018-03-07] MEDS: Potassium Chloride 20 MEQ TAB PO SCH (09:57)
--- NOTE | 2018-03-07 10:58 | DIS ---
DATE OF ADMISSION: 03/04/2018 DATE OF DISCHARGE: 03/07/2018 PRIMARY CARE PROVIDER: Brad Galeana MD DISCHARGE DIAGNOSES: 1. Acute on chronic systolic congestive heart failure, [place] Heart [employer] class III, ACC/AHA stage C. 2. Medication noncompliance. CONDITION OF THE PATIENT ON THE DAY OF DISCHARGE: Stable. I assessed Mr. Kiser on the day of discharge. He denies any chest pain or shortness of breath. Vital signs are stable. S1 and S2 are heard, regular. Lungs are clear to auscultation bilaterally. DISCHARGE MEDICATIONS: 1. Apixaban 5 mg 2 times a day. 2. Aspirin 81 mg daily. 3. Lipitor 40 mg at bedtime. 4. Coreg 6.25 mg 2 times a day. 5. Lasix 40 mg 2 times a day. 6. Lisinopril dose increased to 5 mg 2 times a day. 7. Potassium chloride 20 mEq daily. CONSULTATIONS DURING THIS HOSPITALIZATION: Cardiology, Dr. Simons. HOSPITAL COURSE: Mr. Kiser is a pleasant 72-year-old gentleman, who was admitted to [facility] on March 04, 2018, for acute on chronic systolic congestive heart failure secondary to medication noncompliance. He was treated with intravenous diuretics. He was seen by Cardiology Service. His lisinopril dose was increased. He is advised to have his creatinine and electrolytes checked through his primary care provider's office in 5 to 7 days. He improved clinically and is being discharged home in a stable condition. Many thanks for allowing me to participate in your patient's care. Please feel free to contact me with any questions or concerns. DISCHARGE DESTINATION: Home. TOTAL AMOUNT OF TIME SPENT IN COORDINATING THIS DISCHARGE: 32 minutes. Job ID: [id number]
[2018-03-07 12:38] LABS: Troponin I 0.046 ng/mL (< 0.028)
[2018-03-07 12:45] VITALS: BP 129/73
== END 2018-03-07 16:22 | disposition home or self-care (01) | DRG 293 ==
LOC: ERS 18:56 → 2NO 21:57
PROVIDERS: ADMIT Internal Medicine; ATTEND Internal Medicine
DX: I11.0 Hypertensive heart disease with heart failure (principal); I50.23 Acute on chronic systolic (congestive) heart failure; J44.9 Chronic obstructive pulmonary disease, unspecified; I25.10 Atherosclerotic heart disease of native coronary artery without angina pectoris; E78.5 Hyperlipidemia, unspecified; E11.9 Type 2 diabetes mellitus without complications; I25.5 Ischemic cardiomyopathy; F17.220 Nicotine dependence, chewing tobacco, uncomplicated; Z91.14 Patient's other noncompliance with medication regimen; Z86.718 Personal history of other venous thrombosis and embolism; Z86.711 Personal history of pulmonary embolism; Z95.0 Presence of cardiac pacemaker; Z95.1 Presence of aortocoronary bypass graft
CPT/HCPCS: 36415; 80048; 80053; 83735; 84484; 85025; 93798; 99285; J1940

== ENCOUNTER 2018-03-18 10:33 | Emergency (ER) | payer MEDICARE ==
[2018-03-18 11:24] LABS: Hemoglobin 13.6 g/dL (14.0-18.0); Mean Corpuscular HGB CONC 31.5 g/dL (32.0-36.0); Mean Corpuscular Hemoglobin 29.7 pg (27.0-31.0); Mean Corpuscular Volume 94.3 fL (78.0-98.0); Mean Platelet Volume 8.7 fL (7.4-10.4); Platelet Count 167 thou/uL (130-400); RBC Distribution Width 14.4 % (11.5-14.5); Red Blood Cell (RBC) Count 4.56 mill/uL (4.70-6.10); White Blood Cell (WBC) Count 4.5 thou/uL (4.8-10.8)
[2018-03-18 11:40] LABS: ALT (SGPT) 11 U/L (8-55); AST (SGOT) 17 U/L (5-34); Albumin 3.5 g/dL (3.4-4.8); Alkaline Phosphatase 111 U/L (40-150); Anion Gap 15 mmol/L (10-20); BUN (Urea Nitrogen) 20 mg/dL (8.4-25.7); Bilirubin, Total 2.5 mg/dL (0.2-1.2); Calc. Creatinine Clearance 0 mL/min (70-130); Calcium 9.2 mg/dL (7.8-10.44); Carbon Dioxide 20 mmol/L (23-31); Chloride 107 mmol/L (98-107); Estimated GFR-MDRD 80; Globulin 3.9 g/dL (2.4-3.5); Glucose 102 mg/dL (83-110); Potassium 4.2 mmol/L (3.5-5.1); Protein, Total 7.4 g/dL (5.8-8.1); Sodium 138 mmol/L (136-145)
--- NOTE | 2018-03-18 11:51 | RAD ---
CHEST 1 VIEW: Date: 03/18/18 COMPARISON: 03/04/18. HISTORY: Dyspnea. FINDINGS: Sternotomy wires, mediastinal clips, and right-sided defibrillator are redemonstrated. There is persi stent cardiomegaly. Slight elongation of the aorta. Pulmonary vessels are prominent. No consolidation or mass. No pleural effusion or pneumothorax. IMPRESSION: Cardiomegaly. Pulmonary vascular prominence. Correlate for volume overload. POS: GABBY
[2018-03-18 12:01] LABS: CKMB 2.6 ng/mL (0-6.6)
[2018-03-18 12:04] LABS: Burr Cells SLIGHT = 2-5 cells (100X) (0-1/hpf); Eosinophils 5 % (0-10); Lymphocytes 43 % (21-51); MDiff Complete? YES; Monocytes 7 % (0-10); Neutrophil 45 % (42-75); PLT Morphology Comment Appears Adequate
[2018-03-18 12:19] LABS: Bilirubin Small (Negative); Blood, Urine Negative (Negative); Clarity CLOUDY (Clear); Glucose, Urine (Dipstick) Negative (Negative); Leukocyte Small (Negative); Nitrite Positive (Negative); Protein, Urine (Dipstick) 100 mg/dL (Neg-Trace); Specific Gravity, Urine 1.023 (1.002-1.036); pH, Urine 5.5 (5.0-9.0)
[2018-03-18 12:21] LABS: Bacteria/HPF 4+ HPF (None Seen); Pathc Cast-AUWi Flag 0.58 (0-2.49); RBC/HPF 0-3 HPF (0-3); Squamous Epithelial 0-3 HPF (0-3)
[2018-03-18] MEDS ORDERED: cefTRIAXone\\ROCEPHIN 1 GM VIAL ONE (13:18)
--- NOTE | 2018-03-20 18:12 | EKG ---
Test Reason : Blood Pressure : / mmHG Vent. Rate : 074 BPM Atrial Rate : 074 BPM P-R Int : 188 ms QRS Dur : 108 ms QT Int : 430 ms P-R-T Axes : 049 -08 175 degrees QTc Int : 477 ms Atrial-paced rhythm with occasional Premature ventricular complexes and Fusion complexes T wave abnormality, consider inferolateral ischemia Prolonged QT Abnormal ECG When compared with ECG of 11-FEB-2018 No changes Confirmed by DARLING KASPER DO ([id number]), editor greeting card SANJU BEE ([id number]) on 03/20/2018 6:12:25 PM Referred By: Confirmed By:DARLING KASPER DO
== END 2018-03-18 13:50 | disposition home or self-care (01) ==
LOC: ERS 10:33
DX: N39.0 Urinary tract infection, site not specified (principal); I11.0 Hypertensive heart disease with heart failure; I50.9 Heart failure, unspecified; Z86.718 Personal history of other venous thrombosis and embolism; I25.10 Atherosclerotic heart disease of native coronary artery without angina pectoris; E78.5 Hyperlipidemia, unspecified; F17.220 Nicotine dependence, chewing tobacco, uncomplicated
CPT/HCPCS: 36415; 71045; 80053; 81003; 81015; 82553; 83880; 84484; 85025; 93005; 96374; J0696